=== PATIENT | female | born 1945 | race African-American/Black ===

== ENCOUNTER 2022-04-20 09:12 | Inpatient (IN) | payer OTHER ==
[2022-04-20] MEDS ORDERED: NITROGLYCERIN 25MG/D5W 250ML 25 MG/250 ML ML IVPB ONE (09:31)
[2022-04-20] MEDS ORDERED: RAPID SEQUENCE INTUBATION KIT NR ONE ×2 (09:34→09:36)
[2022-04-20 09:54] LABS: BASO % 1.3 % (0-2.0); EOS % 0.4 % (0-4.5); HEMATOCRIT 38.9 % (32.4-45.2); HEMOGLOBIN 11.6 GM/dL (10.7-15.3); LYMPH % 16.6 % (8-40); MCH 26.4 pg (25.7-33.7); MCHC 29.8 g/dl (32.0-36.0); MEAN CELL VOLUME 88.4 fl (80-96); MEAN PLT VOLUME 10.4 fl (7.5-11.1); MONO % 3.7 % (3.8-10.2); PLATELET COUNT 222 10^3/uL (134-434); RDW 18.1 % (11.6-15.6); WHITE BLOOD COUNT 7.2 K/mm3 (4.0-10.0)
[2022-04-20 10:08] LABS: PROTHROMBIN TIME (PATIENT) 11.5 SEC (9.7-13.0)
[2022-04-20 10:11] LABS: ACTIVATED PTT 32.7 SECONDS (25.2-36.5)
[2022-04-20 10:19] LABS: BLOOD UREA NITROGEN 17.5 mg/dL (7-18); CALCIUM 8.8 mg/dL (8.5-10.1)
[2022-04-20 10:20] LABS: MAGNESIUM 2.2 mg/dL (1.8-2.4)
[2022-04-20 10:22] LABS: PHOSPHOROUS 4.2 mg/dL (2.5-4.9)
[2022-04-20 10:24] LABS: BILIRUBIN,TOTAL 0.8 mg/dL (0.2-1); TOT PROT 7.8 g/dl (6.4-8.2)
[2022-04-20] MEDS ORDERED: FUROSEMIDE 40 MG/4 ML INJECTABLE VIAL IVPUSH ONE (10:58)
[2022-04-20] MEDS ORDERED: PIPERACILLIN/TAZOB 4.5 GM 4.5 GM in DEXTROSE 5%-WATER 100 ML IVPB ONE (11:07)
[2022-04-20] MEDS ORDERED: VANCOMYCIN 1 GM in D5W (PRE-DOCKED) 1,000 MG/250 ML IVPB ONE (11:07)
[2022-04-20] MEDS ORDERED: PROPOFOL 1,000,000 MCG/100 ML VIAL ONE (11:08)
[2022-04-20] MEDS ORDERED: FUROSEMIDE 40 MG/4 ML INJECTABLE VIAL ONE (11:08)
[2022-04-20 11:11] LABS: N-TERMINAL BNP 3273.6 pg/ml (5-450)
[2022-04-20] MEDS: PROPOFOL 1,000,000 MCG/100 ML VIAL IVPB SCH ×3 (11:21→21:47)
[2022-04-20] MEDS ORDERED: VANCOMYCIN/WATER FOR INJ (PEG) 1,000 MG/200 ML BAG IVPB ONE (11:27)
[2022-04-20 12:19] LABS: ARTERIAL BLD GAS O2 SATURATION 91.5 % (95-98); ARTERIAL BLOOD GAS BASE EXCESS 8.6 mmol/L (-2-2); ARTERIAL BLOOD GAS PO2 66.9 mmHg (80-100); ARTERIAL BLOOD GAS pH 7.344 (7.350-7.450)
[2022-04-20 17:23] LABS: ARTERIAL BLD GAS O2 SATURATION 96.6 % (95-98); ARTERIAL BLOOD GAS BASE EXCESS 8.5 mmol/L (-2-2); ARTERIAL BLOOD GAS PO2 94.7 mmHg (80-100); ARTERIAL BLOOD GAS pH 7.343 (7.350-7.450)
[2022-04-20 17:27] LABS: ALLENS TEST POSITIVE
[2022-04-20 17:28] LABS: VENT MODE A/C; VENT RATE 14
[2022-04-20] MEDS: DEXTROSE 5%-LACTATED RINGERS 1,000 ML IV SCH (17:39)
[2022-04-20] MEDS: CHLORHEXIDINE GLUCONATE 4% CLEANSER FOR DECOLONIZATION TP SCH (21:47)
[2022-04-20] MEDS: MUPIROCIN 2% TOPICAL OINTMENT FOR DECOLONIZATION NS SCH (21:47)
[2022-04-20 22:54] LABS: ARTERIAL BLD GAS O2 SATURATION 94.7 % (95-98); ARTERIAL BLOOD GAS BASE EXCESS 4.8 mmol/L (-2-2); ARTERIAL BLOOD GAS PO2 76.8 mmHg (80-100); ARTERIAL BLOOD GAS pH 7.365 (7.350-7.450)
[2022-04-20 22:59] LABS: VENT RATE 14
[2022-04-21] MEDS: PROPOFOL 1,000,000 MCG/100 ML VIAL IVPB SCH ×5 (01:00→21:40)
[2022-04-21] MEDS: DEXTROSE 5%-LACTATED RINGERS 1,000 ML IV SCH (03:02)
[2022-04-21] MEDS: FUROSEMIDE 40 MG/4 ML INJECTABLE VIAL IVPUSH SCH ×2 (05:43→14:19)
[2022-04-21 06:35] LABS: ARTERIAL BLD GAS O2 SATURATION 97.5 % (95-98); ARTERIAL BLOOD GAS BASE EXCESS 8.6 mmol/L (-2-2); ARTERIAL BLOOD GAS PO2 107.6 mmHg (80-100); ARTERIAL BLOOD GAS pH 7.352 (7.350-7.450)
[2022-04-21 06:50] LABS: VENT MODE V-A/C; VENT RATE 14
[2022-04-21 08:14] LABS: EPI CELLS 1 /uL (0-25.1); HYALINE CASTS 1 /uL (0-3.1); URINE APPEARANCE CLOUDY; URINE BACTERIA 14 /uL (0-1359); URINE BILIRUBIN NEGATIVE (NEGATIVE); URINE COLOR YELLOW; URINE GLUCOSE (UA) NEGATIVE (NEGATIVE); URINE KETONE NEGATIVE (NEGATIVE); URINE LEUK ESTERASE 1+ (NEGATIVE); URINE NITRITE NEGATIVE (NEGATIVE); URINE PROTEIN TRACE (NEGATIVE); URINE RBC 944 /uL (0-23.9); URINE UROBILINOGEN 0.2 mg/dL (0.2-1.0); URINE WBC 17 /uL (0-25.8)
[2022-04-21] MEDS ORDERED: ENOXAPARIN NA (PORCINE) 40 MG/0.4 ML DISP.SYRIN SQ SCH (10:00)
[2022-04-21] MEDS: MUPIROCIN 2% TOPICAL OINTMENT FOR DECOLONIZATION NS SCH ×2 (10:21→21:19)
[2022-04-21] MEDS: ENOXAPARIN NA (PORCINE) 40 MG/0.4 ML DISP.SYRIN SQ SCH (10:21)
[2022-04-21] MEDS: PANTOPRAZOLE SODIUM 40 MG VIAL IVPUSH SCH (10:22)
[2022-04-21 13:41] LABS: BASO % 0.4 % (0-2.0); EOS % 0.8 % (0-4.5); HEMATOCRIT 32.9 % (32.4-45.2); HEMOGLOBIN 10.3 GM/dL (10.7-15.3); LYMPH % 9.4 % (8-40); MCH 26.8 pg (25.7-33.7); MCHC 31.2 g/dl (32.0-36.0); MEAN PLT VOLUME 9.8 fl (7.5-11.1); MONO % 6.8 % (3.8-10.2); NEUT % 82.6 % (42.8-82.8); PLATELET COUNT 165 10^3/uL (134-434); RBC 3.83 M/mm3 (3.60-5.2); RDW 18.2 % (11.6-15.6); WHITE BLOOD COUNT 7.7 K/mm3 (4.0-10.0)
[2022-04-21 14:11] LABS: CALCIUM 8.4 mg/dL (8.5-10.1); MAGNESIUM 1.9 mg/dL (1.8-2.4)
[2022-04-21 14:15] LABS: PHOSPHOROUS 3.3 mg/dL (2.5-4.9)
[2022-04-21 14:18] LABS: ALBUMIN 2.2 g/dl (3.4-5.0); BILIRUBIN,TOTAL 0.6 mg/dL (0.2-1); CREATININE 1.2 mg/dL (0.55-1.3)
[2022-04-21] MEDS ORDERED: DEXTROSE 5%-LACTATED RINGERS 1,000 ML IV SCH (15:25)
[2022-04-21] MEDS: CHLORHEXIDINE GLUCONATE 4% CLEANSER FOR DECOLONIZATION TP SCH (21:19)
[2022-04-22] MEDS: FUROSEMIDE 40 MG/4 ML INJECTABLE VIAL IVPUSH SCH ×2 (05:40→15:12)
[2022-04-22 06:33] LABS: ARTERIAL BLD GAS O2 SATURATION 60.6 % (95-98); ARTERIAL BLOOD GAS BASE EXCESS 10.7 mmol/L (-2-2); ARTERIAL BLOOD GAS pH 7.406 (7.350-7.450)
[2022-04-22 07:13] LABS: ALLENS TEST POSITIVE; VENT MODE A/C; VENT RATE 16
[2022-04-22 07:14] LABS: ARTERIAL BLOOD GAS PO2 32.4 mmHg (80-100)
[2022-04-22 08:27] LABS: BASO % 0.6 % (0-2.0); EOS % 0.7 % (0-4.5); HEMATOCRIT 33.7 % (32.4-45.2); HEMOGLOBIN 10.5 GM/dL (10.7-15.3); LYMPH % 10.8 % (8-40); MCH 26.4 pg (25.7-33.7); MEAN CELL VOLUME 85.2 fl (80-96); MEAN PLT VOLUME 11.5 fl (7.5-11.1); MONO % 6.6 % (3.8-10.2); NEUT % 81.3 % (42.8-82.8); PLATELET COUNT 165 10^3/uL (134-434); RBC 3.96 M/mm3 (3.60-5.2); RDW 18.3 % (11.6-15.6); WHITE BLOOD COUNT 7.9 K/mm3 (4.0-10.0)
[2022-04-22 08:28] LABS: ARTERIAL BLD GAS O2 SATURATION 96.2 % (95-98); ARTERIAL BLOOD GAS BASE EXCESS 9.7 mmol/L (-2-2); ARTERIAL BLOOD GAS PO2 82.8 mmHg (80-100); ARTERIAL BLOOD GAS pH 7.429 (7.350-7.450)
[2022-04-22 08:30] LABS: ALLENS TEST POSITIVE
[2022-04-22 08:31] LABS: VENT MODE A/C; VENT RATE 16
[2022-04-22 08:47] LABS: CALCIUM 8.6 mg/dL (8.5-10.1); MAGNESIUM 1.8 mg/dL (1.8-2.4)
[2022-04-22 08:49] LABS: CREATININE 1.3 mg/dL (0.55-1.3); PHOSPHOROUS 3.4 mg/dL (2.5-4.9)
[2022-04-22 08:51] LABS: BILIRUBIN,TOTAL 0.5 mg/dL (0.2-1); TOT PROT 6.2 g/dl (6.4-8.2)
[2022-04-22] MEDS: KCL 10 MEQ IVPB 10 MEQ/100 ML INFUS.BAG IVPB SCH ×2 (09:00→12:50)
[2022-04-22] MEDS: ENOXAPARIN NA (PORCINE) 40 MG/0.4 ML DISP.SYRIN SQ SCH (09:13)
[2022-04-22] MEDS: PANTOPRAZOLE SODIUM 40 MG VIAL IVPUSH SCH (09:13)
[2022-04-22] MEDS: MUPIROCIN 2% TOPICAL OINTMENT FOR DECOLONIZATION NS SCH ×2 (09:13→21:35)
[2022-04-22] MEDS: PROPOFOL 1,000,000 MCG/100 ML VIAL IVPB SCH ×4 (09:13→21:35)
[2022-04-22] MEDS ORDERED: POTASSIUM CHLORIDE ORAL LIQUID 20 MEQ/15 ML PO ONE (09:15)
[2022-04-22] MEDS ORDERED: MAGNESIUM 1GM/D5W - 1 GM/100 ML IVPB IVPB ONE (09:15)
[2022-04-22] MEDS ORDERED: DEXTROSE 50%-WATER 25 GM/50 ML DISP.SYRIN ONE (09:19)
[2022-04-22] MEDS: METOPROLOL TARTRATE 25 MG TABLET (FP) NGT SCH ×2 (11:31→21:35)
[2022-04-22] MEDS ORDERED: DEXTROSE 50%-WATER - 25 GM/50 ML VIAL IVPUSH PRN (12:38)
[2022-04-22 18:46] LABS: BLOOD UREA NITROGEN 24.1 mg/dL (7-18); CALCIUM 7.9 mg/dL (8.5-10.1)
[2022-04-22 18:50] LABS: CREATININE 1.6 mg/dL (0.55-1.3)
[2022-04-22] MEDS: CHLORHEXIDINE GLUCONATE 4% CLEANSER FOR DECOLONIZATION TP SCH (21:35)
[2022-04-23] MEDS: PROPOFOL 1,000,000 MCG/100 ML VIAL IVPB SCH ×4 (00:53→23:00)
[2022-04-23] MEDS: FUROSEMIDE 40 MG/4 ML INJECTABLE VIAL IVPUSH SCH (06:05)
[2022-04-23 06:39] LABS: ARTERIAL BLOOD GAS BASE EXCESS 8.5 mmol/L (-2-2); ARTERIAL BLOOD GAS PO2 74.5 mmHg (80-100); ARTERIAL BLOOD GAS pH 7.361 (7.350-7.450)
[2022-04-23 06:57] LABS: ALLENS TEST POSITIVE
[2022-04-23 06:58] LABS: VENT MODE A/C; VENT RATE 12
[2022-04-23 08:11] LABS: BASO % 0.3 % (0-2.0); EOS % 0.8 % (0-4.5); HEMATOCRIT 31.2 % (32.4-45.2); HEMOGLOBIN 9.9 GM/dL (10.7-15.3); LYMPH % 10.7 % (8-40); MCH 26.7 pg (25.7-33.7); MCHC 31.6 g/dl (32.0-36.0); MEAN CELL VOLUME 84.7 fl (80-96); MEAN PLT VOLUME 10.2 fl (7.5-11.1); MONO % 5.8 % (3.8-10.2); NEUT % 82.4 % (42.8-82.8); PLATELET COUNT 154 10^3/uL (134-434); RBC 3.69 M/mm3 (3.60-5.2); RDW 18.5 % (11.6-15.6); WHITE BLOOD COUNT 8.9 K/mm3 (4.0-10.0)
[2022-04-23 08:30] LABS: ALBUMIN 1.8 g/dl (3.4-5.0); BLOOD UREA NITROGEN 28.5 mg/dL (7-18); CALCIUM 7.6 mg/dL (8.5-10.1); CREATININE 1.8 mg/dL (0.55-1.3); PHOSPHOROUS 4.7 mg/dL (2.5-4.9)
[2022-04-23 08:31] LABS: TOT PROT 5.4 g/dl (6.4-8.2)
[2022-04-23 08:36] LABS: BILIRUBIN,TOTAL 0.7 mg/dL (0.2-1)
[2022-04-23] MEDS: MUPIROCIN 2% TOPICAL OINTMENT FOR DECOLONIZATION NS SCH ×2 (10:18→21:04)
[2022-04-23] MEDS: AMINO ACIDS/PROTEIN HYDROLYS 30 ML LIQUID.PKT PO SCH (10:18)
[2022-04-23] MEDS: ENOXAPARIN NA (PORCINE) 40 MG/0.4 ML DISP.SYRIN SQ SCH (10:19)
[2022-04-23] MEDS: METOPROLOL TARTRATE 25 MG TABLET (FP) NGT SCH ×2 (10:19→21:04)
[2022-04-23] MEDS: PANTOPRAZOLE SODIUM 40 MG VIAL IVPUSH SCH (10:19)
[2022-04-23] MEDS ORDERED: POTASSIUM CHLORIDE ORAL LIQUID 20 MEQ/15 ML PO ONE (12:30)
[2022-04-23] MEDS: CHLORHEXIDINE GLUCONATE 4% CLEANSER FOR DECOLONIZATION TP SCH (21:04)
[2022-04-24] MEDS: PROPOFOL 1,000,000 MCG/100 ML VIAL IVPB SCH ×3 (05:29→18:04)
[2022-04-24 08:12] LABS: BASO % 0.3 % (0-2.0); EOS % 2.1 % (0-4.5); HEMATOCRIT 31.4 % (32.4-45.2); HEMOGLOBIN 9.8 GM/dL (10.7-15.3); LYMPH % 13.3 % (8-40); MCH 26.5 pg (25.7-33.7); MCHC 31.1 g/dl (32.0-36.0); MEAN CELL VOLUME 85.4 fl (80-96); MEAN PLT VOLUME 10.9 fl (7.5-11.1); MONO % 8.1 % (3.8-10.2); NEUT % 76.2 % (42.8-82.8); PLATELET COUNT 158 10^3/uL (134-434); RBC 3.68 M/mm3 (3.60-5.2); RDW 18.5 % (11.6-15.6); WHITE BLOOD COUNT 7.1 K/mm3 (4.0-10.0)
[2022-04-24 08:37] LABS: CALCIUM 7.4 mg/dL (8.5-10.1)
[2022-04-24 08:39] LABS: ALBUMIN 1.8 g/dl (3.4-5.0); MAGNESIUM 2.1 mg/dL (1.8-2.4)
[2022-04-24 08:41] LABS: CREATININE 1.7 mg/dL (0.55-1.3); PHOSPHOROUS 5.6 mg/dL (2.5-4.9)
[2022-04-24 08:43] LABS: BILIRUBIN,TOTAL 0.4 mg/dL (0.2-1); TOT PROT 5.6 g/dl (6.4-8.2)
[2022-04-24] MEDS: MUPIROCIN 2% TOPICAL OINTMENT FOR DECOLONIZATION NS SCH ×2 (09:05→21:37)
[2022-04-24] MEDS: AMINO ACIDS/PROTEIN HYDROLYS 30 ML LIQUID.PKT PO SCH (09:05)
[2022-04-24] MEDS: ENOXAPARIN NA (PORCINE) 40 MG/0.4 ML DISP.SYRIN SQ SCH (09:06)
[2022-04-24] MEDS: PANTOPRAZOLE SODIUM 40 MG VIAL IVPUSH SCH (09:06)
[2022-04-24] MEDS: METOPROLOL TARTRATE 25 MG TABLET (FP) NGT SCH ×2 (09:06→21:38)
[2022-04-24] MEDS: FUROSEMIDE 40 MG/4 ML INJECTABLE VIAL IVPUSH SCH (13:50)
[2022-04-24] MEDS: CHLORHEXIDINE GLUCONATE 4% CLEANSER FOR DECOLONIZATION TP SCH (21:37)
[2022-04-25] MEDS: PROPOFOL 1,000,000 MCG/100 ML VIAL IVPB SCH ×3 (04:00→16:04)
[2022-04-25 06:24] LABS: ARTERIAL BLD GAS O2 SATURATION 95.8 % (95-98); ARTERIAL BLOOD GAS BASE EXCESS 8.1 mmol/L (-2-2); ARTERIAL BLOOD GAS PO2 87.3 mmHg (80-100)
[2022-04-25 06:30] LABS: VENT MODE V-A/C
[2022-04-25 06:31] LABS: VENT RATE 12
[2022-04-25 08:03] LABS: BASO % 0.5 % (0-2.0); HEMATOCRIT 31.6 % (32.4-45.2); HEMOGLOBIN 9.9 GM/dL (10.7-15.3); LYMPH % 10.6 % (8-40); MCH 26.5 pg (25.7-33.7); MCHC 31.2 g/dl (32.0-36.0); MEAN PLT VOLUME 10.7 fl (7.5-11.1); NEUT % 79.9 % (42.8-82.8); PLATELET COUNT 164 10^3/uL (134-434); RBC 3.71 M/mm3 (3.60-5.2); WHITE BLOOD COUNT 6.9 K/mm3 (4.0-10.0)
[2022-04-25 08:26] LABS: ALBUMIN 1.8 g/dl (3.4-5.0); MAGNESIUM 2.3 mg/dL (1.8-2.4)
[2022-04-25 08:27] LABS: CALCIUM 7.9 mg/dL (8.5-10.1)
[2022-04-25 08:29] LABS: CREATININE 1.2 mg/dL (0.55-1.3)
[2022-04-25 08:30] LABS: BILIRUBIN,TOTAL 0.3 mg/dL (0.2-1); TOT PROT 5.8 g/dl (6.4-8.2)
[2022-04-25] MEDS: PANTOPRAZOLE SODIUM 40 MG VIAL IVPUSH SCH (09:02)
[2022-04-25] MEDS: MUPIROCIN 2% TOPICAL OINTMENT FOR DECOLONIZATION NS SCH (09:03)
[2022-04-25] MEDS: METOPROLOL TARTRATE 25 MG TABLET (FP) NGT SCH ×3 (09:03→21:40)
[2022-04-25] MEDS: AMINO ACIDS/PROTEIN HYDROLYS 30 ML LIQUID.PKT PO SCH ×2 (09:03→16:48)
[2022-04-25] MEDS: ENOXAPARIN NA (PORCINE) 40 MG/0.4 ML DISP.SYRIN SQ SCH (09:03)
[2022-04-25] MEDS: DEXTROSE 5%-WATER - 1,000 ML IV SCH (13:55)
[2022-04-25] MEDS ORDERED: FUROSEMIDE 40 MG/4 ML INJECTABLE VIAL IVPUSH ONE (14:07)
[2022-04-25 15:13] VITALS: BMI 43.4
[2022-04-25] MEDS: POLYETHYLENE GLYCOL (HEALTHYLAX) 3350 17 GM PACKET PO SCH (21:39)
[2022-04-25] MEDS: CHLORHEXIDINE GLUCONATE 4% CLEANSER FOR DECOLONIZATION TP SCH (21:39)
[2022-04-26 06:52] LABS: ARTERIAL BLD GAS O2 SATURATION 95.2 % (95-98); ARTERIAL BLOOD GAS PO2 78.6 mmHg (80-100); ARTERIAL BLOOD GAS pH 7.398 (7.350-7.450)
[2022-04-26 06:53] LABS: ALLENS TEST POSITIVE; VENT MODE A/C
[2022-04-26 06:54] LABS: VENT RATE 12
[2022-04-26 08:08] LABS: BASO % 0.3 % (0-2.0); EOS % 2.6 % (0-4.5); HEMATOCRIT 30.7 % (32.4-45.2); HEMOGLOBIN 9.5 GM/dL (10.7-15.3); LYMPH % 11.7 % (8-40); MCH 26.1 pg (25.7-33.7); MEAN CELL VOLUME 84.2 fl (80-96); MONO % 6.8 % (3.8-10.2); NEUT % 78.6 % (42.8-82.8); PLATELET COUNT 165 10^3/uL (134-434); RBC 3.65 M/mm3 (3.60-5.2); RDW 17.5 % (11.6-15.6); WHITE BLOOD COUNT 5.8 K/mm3 (4.0-10.0)
[2022-04-26 08:37] LABS: BLOOD UREA NITROGEN 31.4 mg/dL (7-18)
[2022-04-26 08:38] LABS: CALCIUM 8.1 mg/dL (8.5-10.1); PHOSPHOROUS 4.2 mg/dL (2.5-4.9)
[2022-04-26 08:39] LABS: ALBUMIN 1.7 g/dl (3.4-5.0); BILIRUBIN,TOTAL 0.2 mg/dL (0.2-1); MAGNESIUM 2.3 mg/dL (1.8-2.4)
[2022-04-26 08:40] LABS: TOT PROT 5.8 g/dl (6.4-8.2)
[2022-04-26] MEDS: PANTOPRAZOLE SODIUM 40 MG VIAL IVPUSH SCH (09:11)
[2022-04-26] MEDS: FUROSEMIDE 40 MG/4 ML INJECTABLE VIAL IVPUSH SCH (09:11)
[2022-04-26] MEDS: ENOXAPARIN NA (PORCINE) 40 MG/0.4 ML DISP.SYRIN SQ SCH (09:11)
[2022-04-26] MEDS: AMINO ACIDS/PROTEIN HYDROLYS 30 ML LIQUID.PKT PO SCH ×2 (09:12→17:31)
[2022-04-26] MEDS: METOPROLOL TARTRATE 25 MG TABLET (FP) NGT SCH ×2 (09:12→21:23)
[2022-04-26] MEDS: POLYETHYLENE GLYCOL (HEALTHYLAX) 3350 17 GM PACKET PO SCH ×2 (09:12→21:23)
[2022-04-27 06:26] LABS: ARTERIAL BLD GAS O2 SATURATION 91.5 % (95-98); ARTERIAL BLOOD GAS BASE EXCESS 10.8 mmol/L (-2-2); ARTERIAL BLOOD GAS PO2 63.6 mmHg (80-100); ARTERIAL BLOOD GAS pH 7.394 (7.350-7.450)
[2022-04-27 06:27] LABS: ALLENS TEST POSITIVE; VENT MODE A/C; VENT RATE 12
[2022-04-27 07:36] LABS: BASO % 0.4 % (0-2.0); EOS % 2.3 % (0-4.5); HEMATOCRIT 28.9 % (32.4-45.2); HEMOGLOBIN 9.3 GM/dL (10.7-15.3); LYMPH % 21.6 % (8-40); MCH 26.9 pg (25.7-33.7); MCHC 32.1 g/dl (32.0-36.0); MEAN CELL VOLUME 83.7 fl (80-96); MEAN PLT VOLUME 10.4 fl (7.5-11.1); MONO % 9.7 % (3.8-10.2); PLATELET COUNT 184 10^3/uL (134-434); RBC 3.46 M/mm3 (3.60-5.2); RDW 17.8 % (11.6-15.6); WHITE BLOOD COUNT 6.2 K/mm3 (4.0-10.0)
[2022-04-27 07:40] LABS: CALCIUM 8.3 mg/dL (8.5-10.1)
[2022-04-27 07:41] LABS: ALBUMIN 1.7 g/dl (3.4-5.0); BLOOD UREA NITROGEN 33.4 mg/dL (7-18); MAGNESIUM 2.1 mg/dL (1.8-2.4)
[2022-04-27 07:44] LABS: BILIRUBIN,TOTAL 0.4 mg/dL (0.2-1); CREATININE 1.1 mg/dL (0.55-1.3); PHOSPHOROUS 4.2 mg/dL (2.5-4.9); TOT PROT 5.9 g/dl (6.4-8.2)
[2022-04-27] MEDS: AMINO ACIDS/PROTEIN HYDROLYS 30 ML LIQUID.PKT PO SCH ×2 (08:26→17:09)
[2022-04-27] MEDS: METOPROLOL TARTRATE 25 MG TABLET (FP) NGT SCH ×2 (10:59→21:09)
[2022-04-27] MEDS: ENOXAPARIN NA (PORCINE) 40 MG/0.4 ML DISP.SYRIN SQ SCH (10:59)
[2022-04-27] MEDS: FUROSEMIDE 40 MG/4 ML INJECTABLE VIAL IVPUSH SCH (10:59)
[2022-04-27] MEDS: POLYETHYLENE GLYCOL (HEALTHYLAX) 3350 17 GM PACKET PO SCH ×2 (10:59→21:09)
[2022-04-27] MEDS: DEXTROSE 5%-WATER - 1,000 ML IV SCH (10:59)
[2022-04-27] MEDS: PANTOPRAZOLE SODIUM 40 MG VIAL IVPUSH SCH (11:00)
[2022-04-27] MEDS: PROPOFOL 1,000,000 MCG/100 ML VIAL IVPB SCH ×2 (17:07→21:06)
[2022-04-27] MEDS: CHLORHEXIDINE GLUCONATE 4% CLEANSER FOR DECOLONIZATION TP SCH (21:06)
[2022-04-28] MEDS: PROPOFOL 1,000,000 MCG/100 ML VIAL IVPB SCH ×4 (00:37→22:19)
[2022-04-28 07:21] LABS: HEMOGLOBIN 9.1 GM/dL (10.7-15.3); MCH 26.3 pg (25.7-33.7); MCHC 31.4 g/dl (32.0-36.0); MEAN CELL VOLUME 83.9 fl (80-96); MEAN PLT VOLUME 10.6 fl (7.5-11.1); PLATELET COUNT 204 10^3/uL (134-434); RBC 3.46 M/mm3 (3.60-5.2); WHITE BLOOD COUNT 6.5 K/mm3 (4.0-10.0)
[2022-04-28 07:52] LABS: ALBUMIN 1.7 g/dl (3.4-5.0); BLOOD UREA NITROGEN 33.6 mg/dL (7-18); CALCIUM 8.4 mg/dL (8.5-10.1); MAGNESIUM 2.4 mg/dL (1.8-2.4)
[2022-04-28 07:54] LABS: PHOSPHOROUS 4.4 mg/dL (2.5-4.9)
[2022-04-28 07:55] LABS: CREATININE 1.2 mg/dL (0.55-1.3)
[2022-04-28] MEDS: AMINO ACIDS/PROTEIN HYDROLYS 30 ML LIQUID.PKT PO SCH ×2 (07:55→16:46)
[2022-04-28 07:56] LABS: BILIRUBIN,TOTAL 0.5 mg/dL (0.2-1); TOT PROT 5.8 g/dl (6.4-8.2)
[2022-04-28] MEDS: POLYETHYLENE GLYCOL (HEALTHYLAX) 3350 17 GM PACKET PO SCH ×2 (11:22→22:19)
[2022-04-28] MEDS: METOPROLOL TARTRATE 25 MG TABLET (FP) NGT SCH ×2 (11:22→22:19)
[2022-04-28] MEDS: PANTOPRAZOLE SODIUM 40 MG VIAL IVPUSH SCH (11:22)
[2022-04-28] MEDS: ENOXAPARIN NA (PORCINE) 40 MG/0.4 ML DISP.SYRIN SQ SCH (11:22)
[2022-04-28] MEDS: FUROSEMIDE 40 MG/4 ML INJECTABLE VIAL IVPUSH SCH ×2 (11:23→22:19)
[2022-04-28] MEDS ORDERED: ACETAMINOPHEN 1000 MG/100 ML BAG IVPB ONE (15:00)
[2022-04-28] MEDS: CHLORHEXIDINE GLUCONATE 4% CLEANSER FOR DECOLONIZATION TP SCH (22:17)
[2022-04-29] MEDS: PROPOFOL 1,000,000 MCG/100 ML VIAL IVPB SCH ×4 (04:50→13:31)
[2022-04-29 06:39] LABS: HEMATOCRIT 28.8 % (32.4-45.2); HEMOGLOBIN 9.1 GM/dL (10.7-15.3); MCH 26.4 pg (25.7-33.7); MCHC 31.4 g/dl (32.0-36.0); MEAN CELL VOLUME 84.1 fl (80-96); MEAN PLT VOLUME 9.9 fl (7.5-11.1); PLATELET COUNT 228 10^3/uL (134-434); RBC 3.43 M/mm3 (3.60-5.2); WHITE BLOOD COUNT 7.2 K/mm3 (4.0-10.0)
[2022-04-29 06:59] LABS: ALBUMIN 1.6 g/dl (3.4-5.0); BLOOD UREA NITROGEN 36.7 mg/dL (7-18); CALCIUM 8.4 mg/dL (8.5-10.1); MAGNESIUM 2.4 mg/dL (1.8-2.4)
[2022-04-29 07:02] LABS: CREATININE 1.2 mg/dL (0.55-1.3); PHOSPHOROUS 4.4 mg/dL (2.5-4.9)
[2022-04-29 07:04] LABS: BILIRUBIN,TOTAL 0.5 mg/dL (0.2-1); TOT PROT 5.7 g/dl (6.4-8.2)
[2022-04-29] MEDS: AMINO ACIDS/PROTEIN HYDROLYS 30 ML LIQUID.PKT PO SCH ×2 (08:55→17:13)
[2022-04-29] MEDS: ENOXAPARIN NA (PORCINE) 40 MG/0.4 ML DISP.SYRIN SQ SCH (09:05)
[2022-04-29] MEDS: PANTOPRAZOLE SODIUM 40 MG VIAL IVPUSH SCH (09:05)
[2022-04-29] MEDS: FUROSEMIDE 40 MG/4 ML INJECTABLE VIAL IVPUSH SCH ×2 (09:05→21:35)
[2022-04-29] MEDS: POLYETHYLENE GLYCOL (HEALTHYLAX) 3350 17 GM PACKET PO SCH ×2 (09:05→21:35)
[2022-04-29] MEDS: METOPROLOL TARTRATE 25 MG TABLET (FP) NGT SCH ×2 (09:05→21:35)
[2022-04-29 15:59] LABS: ARTERIAL BLD GAS O2 SATURATION 94.2 % (95-98); ARTERIAL BLOOD GAS BASE EXCESS 0.3 mmol/L (-2-2); ARTERIAL BLOOD GAS PO2 68.1 mmHg (80-100); ARTERIAL BLOOD GAS pH 7.432 (7.350-7.450)
[2022-04-29 16:04] LABS: ALLENS TEST POSITIVE
[2022-04-29 16:05] LABS: VENT MODE A/C; VENT RATE 12
[2022-04-29 16:21] LABS: BASO % 0.4 % (0-2.0); EOS % 1.6 % (0-4.5); HEMATOCRIT 29.2 % (32.4-45.2); LYMPH % 17.1 % (8-40); MCH 25.8 pg (25.7-33.7); MCHC 30.8 g/dl (32.0-36.0); MEAN CELL VOLUME 83.7 fl (80-96); MEAN PLT VOLUME 9.9 fl (7.5-11.1); MONO % 10.1 % (3.8-10.2); NEUT % 70.8 % (42.8-82.8); PLATELET COUNT 267 10^3/uL (134-434); RBC 3.49 M/mm3 (3.60-5.2); RDW 17.2 % (11.6-15.6); WHITE BLOOD COUNT 9.2 K/mm3 (4.0-10.0)
[2022-04-29 16:27] LABS: INR 1.14 (0.83-1.09); PROTHROMBIN TIME (PATIENT) 13.1 SEC (9.7-13.0)
[2022-04-29 16:30] LABS: ACTIVATED PTT 31.3 SECONDS (25.2-36.5)
[2022-04-29] MEDS: CHLORHEXIDINE GLUCONATE 4% CLEANSER FOR DECOLONIZATION TP SCH (21:35)
[2022-04-30] MEDS ORDERED: ACETAMINOPHEN 650 MG/20.3 ML ORAL SOLUTION (CUPS) PO PRN (06:50)
[2022-04-30] MEDS: AMINO ACIDS/PROTEIN HYDROLYS 30 ML LIQUID.PKT PO SCH ×2 (07:40→16:38)
[2022-04-30 07:50] LABS: HEMATOCRIT 27.5 % (32.4-45.2); HEMOGLOBIN 8.9 GM/dL (10.7-15.3); MCH 26.9 pg (25.7-33.7); MCHC 32.2 g/dl (32.0-36.0); MEAN CELL VOLUME 83.5 fl (80-96); MEAN PLT VOLUME 9.4 fl (7.5-11.1); PLATELET COUNT 253 10^3/uL (134-434); RDW 17.3 % (11.6-15.6); WHITE BLOOD COUNT 9.6 K/mm3 (4.0-10.0)
[2022-04-30 08:16] LABS: ALBUMIN 1.8 g/dl (3.4-5.0); BLOOD UREA NITROGEN 46.1 mg/dL (7-18); CALCIUM 8.6 mg/dL (8.5-10.1)
[2022-04-30 08:17] LABS: CREATININE 1.2 mg/dL (0.55-1.3)
[2022-04-30 08:19] LABS: BILIRUBIN,TOTAL 0.5 mg/dL (0.2-1); TOT PROT 6.1 g/dl (6.4-8.2)
[2022-04-30] MEDS: POLYETHYLENE GLYCOL (HEALTHYLAX) 3350 17 GM PACKET PO SCH ×2 (09:11→21:28)
[2022-04-30] MEDS: METOPROLOL TARTRATE 25 MG TABLET (FP) NGT SCH ×2 (09:11→21:28)
[2022-04-30] MEDS: ENOXAPARIN NA (PORCINE) 40 MG/0.4 ML DISP.SYRIN SQ SCH (09:11)
[2022-04-30] MEDS: FUROSEMIDE 40 MG/4 ML INJECTABLE VIAL IVPUSH SCH ×2 (09:11→21:28)
[2022-04-30] MEDS: PANTOPRAZOLE SODIUM 40 MG VIAL IVPUSH SCH (09:11)
[2022-04-30 09:14] LABS: MAGNESIUM 2.4 mg/dL (1.8-2.4)
[2022-04-30 09:18] LABS: PHOSPHOROUS 4.2 mg/dL (2.5-4.9)
[2022-04-30] MEDS ORDERED: ALBUTEROL SO4 0.083% IH SOL 2.5 MG/3 ML VIAL.NEB. NEB PRN (14:46)
[2022-04-30] MEDS ORDERED: FUROSEMIDE 40 MG/4 ML INJECTABLE VIAL IVPUSH ONE (15:22)
[2022-04-30] MEDS ORDERED: ALBUTEROL SO4 2.5/IPRATROPIUM 0.5 INH SOL 3 ML VIAL.NEB. NEB PRN (15:22)
[2022-04-30] MEDS: CHLORHEXIDINE GLUCONATE 4% CLEANSER FOR DECOLONIZATION TP SCH (21:27)
[2022-04-30] MEDS: DEXMEDETOMIDINE PREMIX 400 MCG/100 ML BAG IVPB SCH (21:28)
[2022-05-01] MEDS ORDERED: ACETAMINOPHEN 1000 MG/100 ML BAG IVPB ONE (02:45)
[2022-05-01] MEDS: AMINO ACIDS/PROTEIN HYDROLYS 30 ML LIQUID.PKT PO SCH ×2 (07:58→17:00)
[2022-05-01 07:59] LABS: BLOOD UREA NITROGEN 61.5 mg/dL (7-18); CALCIUM 8.6 mg/dL (8.5-10.1); MAGNESIUM 2.4 mg/dL (1.8-2.4)
[2022-05-01 08:00] LABS: ALBUMIN 1.8 g/dl (3.4-5.0)
[2022-05-01 08:03] LABS: CREATININE 1.3 mg/dL (0.55-1.3); PHOSPHOROUS 5.6 mg/dL (2.5-4.9)
[2022-05-01 08:04] LABS: BILIRUBIN,TOTAL 0.6 mg/dL (0.2-1); TOT PROT 6.5 g/dl (6.4-8.2)
[2022-05-01 08:07] LABS: HEMATOCRIT 32.1 % (32.4-45.2); HEMOGLOBIN 9.8 GM/dL (10.7-15.3); MCHC 30.7 g/dl (32.0-36.0); MEAN CELL VOLUME 84.8 fl (80-96); MEAN PLT VOLUME 9.8 fl (7.5-11.1); PLATELET COUNT 318 10^3/uL (134-434); RBC 3.78 M/mm3 (3.60-5.2); WHITE BLOOD COUNT 9.9 K/mm3 (4.0-10.0)
[2022-05-01] MEDS: PANTOPRAZOLE SODIUM 40 MG VIAL IVPUSH SCH (09:27)
[2022-05-01] MEDS: FUROSEMIDE 40 MG/4 ML INJECTABLE VIAL IVPUSH SCH ×2 (09:27→21:28)
[2022-05-01] MEDS: ENOXAPARIN NA (PORCINE) 40 MG/0.4 ML DISP.SYRIN SQ SCH (09:27)
[2022-05-01] MEDS: POLYETHYLENE GLYCOL (HEALTHYLAX) 3350 17 GM PACKET PO SCH ×2 (09:49→21:28)
[2022-05-01] MEDS: METOPROLOL TARTRATE 25 MG TABLET (FP) NGT SCH ×2 (09:49→21:28)
[2022-05-01] MEDS ORDERED: ACETAMINOPHEN 1000 MG/100 ML BAG IVPB STA (10:08)
[2022-05-01] MEDS: DEXMEDETOMIDINE PREMIX 400 MCG/100 ML BAG IVPB SCH (16:59)
[2022-05-01 20:59] LABS: ARTERIAL BLD GAS O2 SATURATION 91.6 % (95-98); ARTERIAL BLOOD GAS PO2 62.6 mmHg (80-100); ARTERIAL BLOOD GAS pH 7.415 (7.350-7.450)
[2022-05-01 21:02] LABS: ALLENS TEST POSITIVE
[2022-05-01 21:03] LABS: VENT MODE S/T; VENT RATE 15
[2022-05-01] MEDS ORDERED: FENTANYL CITRATE/PF 50 MCG/ML VIAL IVPUSH ONE (21:14)
[2022-05-01] MEDS ORDERED: METOPROLOL TARTRATE 5 MG/5 ML VIAL IVPUSH ONE (21:18)
[2022-05-01] MEDS: CHLORHEXIDINE GLUCONATE 4% CLEANSER FOR DECOLONIZATION TP SCH (21:28)
[2022-05-02] MEDS ORDERED: METOPROLOL TARTRATE 5 MG/5 ML VIAL IVPUSH ONE (05:11)
[2022-05-02] MEDS: AMINO ACIDS/PROTEIN HYDROLYS 30 ML LIQUID.PKT PO SCH ×2 (08:00→17:26)
[2022-05-02] MEDS: POLYETHYLENE GLYCOL (HEALTHYLAX) 3350 17 GM PACKET PO SCH ×2 (09:13→21:36)
[2022-05-02] MEDS: PANTOPRAZOLE SODIUM 40 MG VIAL IVPUSH SCH (09:15)
[2022-05-02] MEDS: ENOXAPARIN NA (PORCINE) 40 MG/0.4 ML DISP.SYRIN SQ SCH (09:16)
[2022-05-02] MEDS: METOPROLOL TARTRATE 25 MG TABLET (FP) NGT SCH (09:16)
[2022-05-02] MEDS: FUROSEMIDE 40 MG/4 ML INJECTABLE VIAL IVPUSH SCH ×2 (09:17→21:36)
[2022-05-02 09:27] LABS: ALBUMIN 1.8 g/dl (3.4-5.0); CALCIUM 9.1 mg/dL (8.5-10.1)
[2022-05-02 09:30] LABS: CREATININE 1.4 mg/dL (0.55-1.3)
[2022-05-02 09:32] LABS: BILIRUBIN,TOTAL 0.6 mg/dL (0.2-1); TOT PROT 6.6 g/dl (6.4-8.2)
[2022-05-02 09:54] LABS: ARTERIAL BLD GAS O2 SATURATION 95.5 % (95-98); ARTERIAL BLOOD GAS BASE EXCESS 12.1 mmol/L (-2-2); ARTERIAL BLOOD GAS PO2 75.2 mmHg (80-100); ARTERIAL BLOOD GAS pH 7.463 (7.350-7.450)
[2022-05-02 09:55] LABS: ALLENS TEST POSITIVE; VENT MODE V
[2022-05-02 09:56] LABS: VENT RATE 17
[2022-05-02] MEDS ORDERED: METOPROLOL TARTRATE 5 MG/5 ML VIAL IVPUSH PRN (10:03)
[2022-05-02] MEDS ORDERED: METOPROLOL TARTRATE 5 MG/5 ML VIAL ONE (10:07)
[2022-05-02] MEDS: METOPROLOL TARTRATE 5 MG/5 ML VIAL IVPUSH PRN (10:08)
[2022-05-02] MEDS: CHLORHEXIDINE GLUCONATE 4% CLEANSER FOR DECOLONIZATION TP SCH (21:36)
[2022-05-03] MEDS: METOPROLOL TARTRATE 5 MG/5 ML VIAL IVPUSH PRN (01:44)
[2022-05-03] MEDS: AMINO ACIDS/PROTEIN HYDROLYS 30 ML LIQUID.PKT PO SCH ×2 (07:31→18:22)
[2022-05-03 07:42] LABS: EOS % 0.4 % (0-4.5); HEMATOCRIT 31.9 % (32.4-45.2); MCH 26.5 pg (25.7-33.7); MCHC 31.2 g/dl (32.0-36.0); MEAN PLT VOLUME 9.6 fl (7.5-11.1); MONO % 6.9 % (3.8-10.2); NEUT % 82.7 % (42.8-82.8); PLATELET COUNT 424 10^3/uL (134-434); RBC 3.75 M/mm3 (3.60-5.2); WHITE BLOOD COUNT 10.2 K/mm3 (4.0-10.0)
[2022-05-03 08:07] LABS: CALCIUM 8.9 mg/dL (8.5-10.1)
[2022-05-03 08:08] LABS: ALBUMIN 1.8 g/dl (3.4-5.0); MAGNESIUM 2.4 mg/dL (1.8-2.4)
[2022-05-03 08:11] LABS: CREATININE 1.3 mg/dL (0.55-1.3); PHOSPHOROUS 4.9 mg/dL (2.5-4.9)
[2022-05-03 08:12] LABS: TOT PROT 6.4 g/dl (6.4-8.2)
[2022-05-03 08:13] LABS: BILIRUBIN,TOTAL 0.6 mg/dL (0.2-1)
[2022-05-03] MEDS ORDERED: AMINO ACIDS 4.25%/D5W 1,000 ML IV SCH ×2 (10:45→15:55)
[2022-05-03] MEDS: FUROSEMIDE 40 MG/4 ML INJECTABLE VIAL IVPUSH SCH ×2 (10:58→21:30)
[2022-05-03] MEDS: ENOXAPARIN NA (PORCINE) 40 MG/0.4 ML DISP.SYRIN SQ SCH (10:58)
[2022-05-03] MEDS: POLYETHYLENE GLYCOL (HEALTHYLAX) 3350 17 GM PACKET PO SCH ×2 (10:58→21:30)
[2022-05-03] MEDS: PANTOPRAZOLE SODIUM 40 MG VIAL IVPUSH SCH (10:58)
[2022-05-03] MEDS: MULTIVIT INJ. ADULT COMBO WITH VIT K 1 COMBO 10 ML VIAL IV SCH (11:00)
[2022-05-03] MEDS ORDERED: MULTIVIT INJ. ADULT COMBO WITH VIT K 1 COMBO 10 ML VIAL IV ONE (13:30)
[2022-05-03] MEDS: CHLORHEXIDINE GLUCONATE 4% CLEANSER FOR DECOLONIZATION TP SCH (21:30)
[2022-05-03 22:29] LABS: EPI CELLS 4 /uL (0-25.1); HYALINE CASTS 6 /uL (0-3.1); URINE APPEARANCE CLOUDY; URINE BACTERIA 548 /uL (0-1359); URINE BILIRUBIN NEGATIVE (NEGATIVE); URINE COLOR YELLOW; URINE GLUCOSE (UA) NEGATIVE (NEGATIVE); URINE KETONE NEGATIVE (NEGATIVE); URINE LEUK ESTERASE 2+ (NEGATIVE); URINE NITRITE NEGATIVE (NEGATIVE); URINE PROTEIN 1+ (NEGATIVE); URINE RBC 257 /uL (0-23.9); URINE WBC 243 /uL (0-25.8)
[2022-05-04 07:23] LABS: HEMATOCRIT 31.7 % (32.4-45.2); HEMOGLOBIN 9.6 GM/dL (10.7-15.3); MCH 25.7 pg (25.7-33.7); MCHC 30.3 g/dl (32.0-36.0); MEAN CELL VOLUME 84.8 fl (80-96); PLATELET COUNT 409 10^3/uL (134-434); RBC 3.73 M/mm3 (3.60-5.2); RDW 17.4 % (11.6-15.6); WHITE BLOOD COUNT 12.2 K/mm3 (4.0-10.0)
[2022-05-04 07:35] LABS: BLOOD UREA NITROGEN 80.1 mg/dL (7-18); CALCIUM 8.7 mg/dL (8.5-10.1); MAGNESIUM 2.3 mg/dL (1.8-2.4)
[2022-05-04 07:36] LABS: ALBUMIN 1.6 g/dl (3.4-5.0)
[2022-05-04 07:39] LABS: CREATININE 1.3 mg/dL (0.55-1.3); PHOSPHOROUS 3.1 mg/dL (2.5-4.9)
[2022-05-04 07:40] LABS: BILIRUBIN,TOTAL 0.5 mg/dL (0.2-1)
[2022-05-04] MEDS: AMINO ACIDS/PROTEIN HYDROLYS 30 ML LIQUID.PKT PO SCH ×2 (08:00→17:07)
[2022-05-04 09:22] LABS: ANISOCYTOSIS 1+; MACROCYTOSIS 0
[2022-05-04] MEDS ORDERED: MULTIVITAMINS (DAILY MVI) TABLET (FP) PO SCH (10:00)
[2022-05-04] MEDS ORDERED: CEFTRIAXONE 1 GM in DEXTROSE 5%-WATER - 50 ML IVPB SCH (10:00)
[2022-05-04] MEDS: POLYETHYLENE GLYCOL (HEALTHYLAX) 3350 17 GM PACKET PO SCH ×2 (10:03→22:05)
[2022-05-04] MEDS: PANTOPRAZOLE SODIUM 40 MG VIAL IVPUSH SCH (10:04)
[2022-05-04] MEDS: FUROSEMIDE 40 MG/4 ML INJECTABLE VIAL IVPUSH SCH (10:04)
[2022-05-04] MEDS: ENOXAPARIN NA (PORCINE) 40 MG/0.4 ML DISP.SYRIN SQ SCH (10:04)
[2022-05-04] MEDS ORDERED: METOPROLOL TARTRATE 5 MG/5 ML VIAL IVPUSH ONE (10:16)
[2022-05-04] MEDS: METOPROLOL TARTRATE 5 MG/5 ML VIAL IVPUSH PRN (10:23)
[2022-05-04] MEDS ORDERED: VANCOMYCIN 1 GM/200 ML PREMIX BAG (RESTRICTED TO ID ONLY) IVPB ONE (10:45)
[2022-05-04] MEDS ORDERED: PIPERACILLIN/TAZOB 3.375 GM 3.375 GM in DEXTROSE 5%-WATER - 50 ML IVPB SCH (10:45)
[2022-05-04] MEDS: AMINO ACIDS 4.25%/D5W 1,000 ML IV SCH ×2 (11:00→22:30)
[2022-05-04] MEDS: MULTIVIT INJ. ADULT COMBO WITH VIT K 1 COMBO 10 ML VIAL IV SCH (12:13)
[2022-05-04 13:58] LABS: BLOOD UREA NITROGEN 81.3 mg/dL (7-18)
[2022-05-04 14:01] LABS: CREATININE 1.3 mg/dL (0.55-1.3)
[2022-05-04] MEDS: PIPERACILLIN/TAZOB 3.375 GM 3.375 GM in DEXTROSE 5%-WATER - 50 ML IVPB SCH (17:52)
[2022-05-04] MEDS: ENOXAPARIN NA (PORCINE) 100 MG/1 ML DISP.SYRIN SQ SCH (20:07)
[2022-05-04] MEDS: CHLORHEXIDINE GLUCONATE 4% CLEANSER FOR DECOLONIZATION TP SCH (22:05)
[2022-05-05] MEDS: AMINO ACIDS 4.25%/D5W 1,000 ML IV SCH (00:35)
[2022-05-05] MEDS: PIPERACILLIN/TAZOB 3.375 GM 3.375 GM in DEXTROSE 5%-WATER - 50 ML IVPB SCH ×3 (01:54→17:25)
[2022-05-05] MEDS: KCL 10 MEQ IVPB 10 MEQ/100 ML INFUS.BAG IVPB SCH ×2 (08:47→09:57)
[2022-05-05] MEDS: AMINO ACIDS/PROTEIN HYDROLYS 30 ML LIQUID.PKT PO SCH ×2 (08:51→17:25)
[2022-05-05] MEDS: ENOXAPARIN NA (PORCINE) 100 MG/1 ML DISP.SYRIN SQ SCH ×2 (08:51→20:37)
[2022-05-05 08:53] LABS: BASO % 1.1 % (0-2.0); EOS % 1.8 % (0-4.5); HEMATOCRIT 31.6 % (32.4-45.2); HEMOGLOBIN 9.5 GM/dL (10.7-15.3); LYMPH % 9.9 % (8-40); MCH 25.6 pg (25.7-33.7); MEAN CELL VOLUME 85.6 fl (80-96); MEAN PLT VOLUME 9.5 fl (7.5-11.1); MONO % 5.6 % (3.8-10.2); NEUT % 81.6 % (42.8-82.8); PLATELET COUNT 416 10^3/uL (134-434); RBC 3.69 M/mm3 (3.60-5.2); RDW 17.8 % (11.6-15.6)
[2022-05-05 09:14] LABS: CALCIUM 8.5 mg/dL (8.5-10.1)
[2022-05-05 09:15] LABS: ALBUMIN 1.6 g/dl (3.4-5.0); BLOOD UREA NITROGEN 84.1 mg/dL (7-18); MAGNESIUM 2.4 mg/dL (1.8-2.4)
[2022-05-05 09:18] LABS: CREATININE 1.4 mg/dL (0.55-1.3); PHOSPHOROUS 3.8 mg/dL (2.5-4.9)
[2022-05-05 09:19] LABS: BILIRUBIN,TOTAL 0.7 mg/dL (0.2-1); TOT PROT 5.9 g/dl (6.4-8.2)
[2022-05-05] MEDS: PANTOPRAZOLE SODIUM 40 MG VIAL IVPUSH SCH (09:54)
[2022-05-05] MEDS ORDERED: VANCOMYCIN 1 GM/200 ML PREMIX BAG (RESTRICTED TO ID ONLY) IVPB SCH ×2 (10:00)
[2022-05-05] MEDS ORDERED: ENOXAPARIN NA (PORCINE) 100 MG/1 ML DISP.SYRIN SQ ONE (10:13)
[2022-05-05] MEDS: POLYETHYLENE GLYCOL (HEALTHYLAX) 3350 17 GM PACKET PO SCH ×2 (11:02→22:20)
[2022-05-05] MEDS ORDERED: AMINO ACIDS 4.25%/D5W 1,000 ML IV SCH (12:00)
[2022-05-05] MEDS ORDERED: SODIUM CHLORIDE 0.45% 1,000 ML IV SCH ×2 (12:00)
[2022-05-05] MEDS: MULTIVIT INJ. ADULT COMBO WITH VIT K 1 COMBO 10 ML VIAL IV SCH (12:36)
[2022-05-05] MEDS: ACETYLCYSTEINE 20% 200MG/ML 4 ML VIAL *FOR ORAL / INH USE ONLY NEB SCH ×3 (14:54→20:31)
[2022-05-05] MEDS: ALBUTEROL SO4 0.083% IH SOL 2.5 MG/3 ML VIAL.NEB. NEB SCH ×3 (14:54→20:31)
[2022-05-05] MEDS ORDERED: ACETYLCYSTEINE 20% 200MG/ML 4 ML VIAL *FOR ORAL / INH USE ONLY NEB SCH (16:00)
[2022-05-05] MEDS ORDERED: ALBUTEROL SO4 0.083% IH SOL 2.5 MG/3 ML VIAL.NEB. NEB PRN (16:00)
[2022-05-05] MEDS: CHLORHEXIDINE GLUCONATE 4% CLEANSER FOR DECOLONIZATION TP SCH (22:30)
[2022-05-06] MEDS: PIPERACILLIN/TAZOB 3.375 GM 3.375 GM in DEXTROSE 5%-WATER - 50 ML IVPB SCH ×2 (02:00→09:34)
[2022-05-06] MEDS: ACETYLCYSTEINE 20% 200MG/ML 4 ML VIAL *FOR ORAL / INH USE ONLY NEB SCH ×3 (08:38→20:05)
[2022-05-06] MEDS: ALBUTEROL SO4 0.083% IH SOL 2.5 MG/3 ML VIAL.NEB. NEB SCH ×3 (08:39→20:05)
[2022-05-06 08:43] LABS: HEMATOCRIT 31.4 % (32.4-45.2); HEMOGLOBIN 9.4 GM/dL (10.7-15.3); MCH 25.7 pg (25.7-33.7); MEAN CELL VOLUME 85.6 fl (80-96); MEAN PLT VOLUME 9.8 fl (7.5-11.1); PLATELET COUNT 484 10^3/uL (134-434); RBC 3.67 M/mm3 (3.60-5.2); RDW 17.6 % (11.6-15.6); WHITE BLOOD COUNT 9.5 K/mm3 (4.0-10.0)
[2022-05-06 09:04] LABS: CALCIUM 8.7 mg/dL (8.5-10.1)
[2022-05-06 09:05] LABS: BLOOD UREA NITROGEN 85.2 mg/dL (7-18)
[2022-05-06 09:08] LABS: CREATININE 1.3 mg/dL (0.55-1.3)
[2022-05-06] MEDS: ENOXAPARIN NA (PORCINE) 100 MG/1 ML DISP.SYRIN SQ SCH ×2 (09:33→20:45)
[2022-05-06] MEDS: AMINO ACIDS/PROTEIN HYDROLYS 30 ML LIQUID.PKT PO SCH ×2 (09:34→18:01)
[2022-05-06] MEDS: POLYETHYLENE GLYCOL (HEALTHYLAX) 3350 17 GM PACKET PO SCH ×2 (09:34→22:25)
[2022-05-06] MEDS: PANTOPRAZOLE SODIUM 40 MG VIAL IVPUSH SCH (09:34)
[2022-05-06] MEDS: CEFTRIAXONE 1 GM in DEXTROSE 5%-WATER - 50 ML IVPB SCH (11:41)
[2022-05-06] MEDS: MULTIVIT INJ. ADULT COMBO WITH VIT K 1 COMBO 10 ML VIAL IV SCH (12:07)
[2022-05-06] MEDS: METOPROLOL TARTRATE 5 MG/5 ML VIAL IVPUSH PRN (18:03)
[2022-05-06] MEDS: CHLORHEXIDINE GLUCONATE 4% CLEANSER FOR DECOLONIZATION TP SCH (23:25)
[2022-05-07 07:37] LABS: HEMATOCRIT 31.9 % (32.4-45.2); HEMOGLOBIN 9.3 GM/dL (10.7-15.3); MCH 25.1 pg (25.7-33.7); MCHC 29.1 g/dl (32.0-36.0); MEAN CELL VOLUME 86.4 fl (80-96); MEAN PLT VOLUME 9.5 fl (7.5-11.1); PLATELET COUNT 466 10^3/uL (134-434); WHITE BLOOD COUNT 7.3 K/mm3 (4.0-10.0)
[2022-05-07 08:00] LABS: CALCIUM 9.2 mg/dL (8.5-10.1)
[2022-05-07 08:01] LABS: ALBUMIN 1.7 g/dl (3.4-5.0); BLOOD UREA NITROGEN 78.8 mg/dL (7-18); MAGNESIUM 2.6 mg/dL (1.8-2.4)
[2022-05-07 08:04] LABS: CREATININE 1.3 mg/dL (0.55-1.3); PHOSPHOROUS 4.4 mg/dL (2.5-4.9)
[2022-05-07 08:05] LABS: BILIRUBIN,TOTAL 0.7 mg/dL (0.2-1); TOT PROT 6.2 g/dl (6.4-8.2)
[2022-05-07] MEDS: ACETYLCYSTEINE 20% 200MG/ML 4 ML VIAL *FOR ORAL / INH USE ONLY NEB SCH ×4 (08:15→20:30)
[2022-05-07] MEDS: ALBUTEROL SO4 0.083% IH SOL 2.5 MG/3 ML VIAL.NEB. NEB SCH ×4 (08:15→20:31)
[2022-05-07] MEDS: ENOXAPARIN NA (PORCINE) 100 MG/1 ML DISP.SYRIN SQ SCH ×2 (08:18→20:31)
[2022-05-07] MEDS: AMINO ACIDS/PROTEIN HYDROLYS 30 ML LIQUID.PKT PO SCH ×2 (08:18→17:35)
[2022-05-07] MEDS: METOPROLOL TARTRATE 5 MG/5 ML VIAL IVPUSH PRN (09:25)
[2022-05-07] MEDS: PANTOPRAZOLE SODIUM 40 MG VIAL IVPUSH SCH (11:47)
[2022-05-07] MEDS: POLYETHYLENE GLYCOL (HEALTHYLAX) 3350 17 GM PACKET PO SCH ×2 (11:47→21:50)
[2022-05-07] MEDS: MULTIVIT INJ. ADULT COMBO WITH VIT K 1 COMBO 10 ML VIAL IV SCH (11:48)
[2022-05-07] MEDS: CEFTRIAXONE 1 GM in DEXTROSE 5%-WATER - 50 ML IVPB SCH (11:48)
[2022-05-07 13:23] LABS: ARTERIAL BLD GAS O2 SATURATION 94.8 % (95-98); ARTERIAL BLOOD GAS BASE EXCESS 11.3 mmol/L (-2-2); ARTERIAL BLOOD GAS PO2 81.2 mmHg (80-100); ARTERIAL BLOOD GAS pH 7.339 (7.350-7.450)
[2022-05-07 13:24] LABS: ALLENS TEST POSITIVE
[2022-05-07 13:25] LABS: VENT MODE PSV; VENT RATE 12
[2022-05-07] MEDS: POTASSIUM CHLORIDE 10 MEQ in DEXTROSE 5%-WATER - 1,000 ML IV SCH (14:26)
[2022-05-07] MEDS: CHLORHEXIDINE GLUCONATE 4% CLEANSER FOR DECOLONIZATION TP SCH (21:51)
[2022-05-07] MEDS: ACETAMINOPHEN 1000 MG/100 ML BAG IVPB PRN (22:45)
[2022-05-08] MEDS: POTASSIUM CHLORIDE 10 MEQ in DEXTROSE 5%-WATER - 1,000 ML IV SCH ×2 (04:06→11:32)
[2022-05-08] MEDS: ACETYLCYSTEINE 20% 200MG/ML 4 ML VIAL *FOR ORAL / INH USE ONLY NEB SCH ×4 (08:00→20:30)
[2022-05-08] MEDS: ALBUTEROL SO4 0.083% IH SOL 2.5 MG/3 ML VIAL.NEB. NEB SCH ×4 (08:00→20:30)
[2022-05-08] MEDS: CEFTRIAXONE 1 GM in DEXTROSE 5%-WATER - 50 ML IVPB SCH (10:55)
[2022-05-08] MEDS: PANTOPRAZOLE SODIUM 40 MG VIAL IVPUSH SCH (10:55)
[2022-05-08] MEDS: ENOXAPARIN NA (PORCINE) 100 MG/1 ML DISP.SYRIN SQ SCH ×2 (10:55→21:12)
[2022-05-08] MEDS: AMINO ACIDS/PROTEIN HYDROLYS 30 ML LIQUID.PKT PO SCH ×2 (11:26→21:12)
[2022-05-08] MEDS: POLYETHYLENE GLYCOL (HEALTHYLAX) 3350 17 GM PACKET PO SCH ×2 (11:29→21:12)
[2022-05-08] MEDS: MULTIVIT INJ. ADULT COMBO WITH VIT K 1 COMBO 10 ML VIAL IV SCH (11:30)
[2022-05-08] MEDS: ACETAMINOPHEN 1000 MG/100 ML BAG IVPB PRN (12:01)
[2022-05-08] MEDS: CHLORHEXIDINE GLUCONATE 4% CLEANSER FOR DECOLONIZATION TP SCH (21:12)
[2022-05-09] MEDS: POTASSIUM CHLORIDE 10 MEQ in DEXTROSE 5%-WATER - 1,000 ML IV SCH (03:00)
[2022-05-09 07:27] LABS: HEMATOCRIT 31.3 % (32.4-45.2); HEMOGLOBIN 9.5 GM/dL (10.7-15.3); MCH 25.8 pg (25.7-33.7); MCHC 30.2 g/dl (32.0-36.0); MEAN CELL VOLUME 85.6 fl (80-96); MEAN PLT VOLUME 10.5 fl (7.5-11.1); PLATELET COUNT 486 10^3/uL (134-434); RBC 3.66 M/mm3 (3.60-5.2); RDW 18.1 % (11.6-15.6); WHITE BLOOD COUNT 6.3 K/mm3 (4.0-10.0)
[2022-05-09 07:32] LABS: CALCIUM 8.6 mg/dL (8.5-10.1)
[2022-05-09 07:33] LABS: ALBUMIN 1.7 g/dl (3.4-5.0); BLOOD UREA NITROGEN 64.8 mg/dL (7-18); MAGNESIUM 2.6 mg/dL (1.8-2.4)
[2022-05-09 07:36] LABS: CREATININE 1.2 mg/dL (0.55-1.3); PHOSPHOROUS 2.9 mg/dL (2.5-4.9)
[2022-05-09 07:37] LABS: BILIRUBIN,TOTAL 0.4 mg/dL (0.2-1); TOT PROT 6.2 g/dl (6.4-8.2)
[2022-05-09] MEDS ORDERED: DEXTROSE 5%-WATER - 1,000 ML IV SCH (07:45)
[2022-05-09] MEDS ORDERED: POTASSIUM CHLORIDE ORAL LIQUID 20 MEQ/15 ML PO ONE (07:48)
[2022-05-09] MEDS: ACETYLCYSTEINE 20% 200MG/ML 4 ML VIAL *FOR ORAL / INH USE ONLY NEB SCH ×4 (08:09→20:27)
[2022-05-09] MEDS: ALBUTEROL SO4 0.083% IH SOL 2.5 MG/3 ML VIAL.NEB. NEB SCH ×4 (08:09→20:28)
[2022-05-09] MEDS: PANTOPRAZOLE SODIUM 40 MG VIAL IVPUSH SCH (10:48)
[2022-05-09] MEDS: AMINO ACIDS/PROTEIN HYDROLYS 30 ML LIQUID.PKT PO SCH ×2 (10:48→17:57)
[2022-05-09] MEDS: CEFTRIAXONE 1 GM in DEXTROSE 5%-WATER - 50 ML IVPB SCH (10:48)
[2022-05-09] MEDS: POLYETHYLENE GLYCOL (HEALTHYLAX) 3350 17 GM PACKET PO SCH ×2 (10:49→21:22)
[2022-05-09] MEDS: ENOXAPARIN NA (PORCINE) 100 MG/1 ML DISP.SYRIN SQ SCH ×2 (10:49→21:22)
[2022-05-09] MEDS: DEXTROSE 5%-WATER - 1,000 ML IV SCH (11:00)
[2022-05-09] MEDS: METOPROLOL TARTRATE 5 MG/5 ML VIAL IVPUSH PRN (17:58)
[2022-05-09] MEDS: CHLORHEXIDINE GLUCONATE 4% CLEANSER FOR DECOLONIZATION TP SCH (21:22)
[2022-05-10 07:37] LABS: CALCIUM 8.6 mg/dL (8.5-10.1)
[2022-05-10 07:38] LABS: ALBUMIN 1.7 g/dl (3.4-5.0); BLOOD UREA NITROGEN 55.2 mg/dL (7-18); MAGNESIUM 2.5 mg/dL (1.8-2.4)
[2022-05-10 07:41] LABS: PHOSPHOROUS 3.5 mg/dL (2.5-4.9)
[2022-05-10 07:43] LABS: BILIRUBIN,TOTAL 0.4 mg/dL (0.2-1); TOT PROT 5.9 g/dl (6.4-8.2)
[2022-05-10 08:12] LABS: HEMATOCRIT 30.3 % (32.4-45.2); HEMOGLOBIN 8.9 GM/dL (10.7-15.3); MCH 25.5 pg (25.7-33.7); MCHC 29.2 g/dl (32.0-36.0); MEAN CELL VOLUME 87.3 fl (80-96); MEAN PLT VOLUME 10.2 fl (7.5-11.1); PLATELET COUNT 439 10^3/uL (134-434); RBC 3.47 M/mm3 (3.60-5.2); RDW 17.9 % (11.6-15.6); WHITE BLOOD COUNT 5.6 K/mm3 (4.0-10.0)
[2022-05-10] MEDS: ACETYLCYSTEINE 20% 200MG/ML 4 ML VIAL *FOR ORAL / INH USE ONLY NEB SCH ×2 (08:34→12:17)
[2022-05-10] MEDS: ALBUTEROL SO4 0.083% IH SOL 2.5 MG/3 ML VIAL.NEB. NEB SCH ×2 (08:34→12:17)
[2022-05-10] MEDS: METOPROLOL TARTRATE 5 MG/5 ML VIAL IVPUSH PRN ×2 (10:00→17:57)
[2022-05-10] MEDS: ENOXAPARIN NA (PORCINE) 100 MG/1 ML DISP.SYRIN SQ SCH ×2 (10:11→20:21)
[2022-05-10] MEDS: CEFTRIAXONE 1 GM in DEXTROSE 5%-WATER - 50 ML IVPB SCH (10:11)
[2022-05-10] MEDS: POLYETHYLENE GLYCOL (HEALTHYLAX) 3350 17 GM PACKET PO SCH ×2 (10:12→23:00)
[2022-05-10] MEDS: PANTOPRAZOLE SODIUM 40 MG VIAL IVPUSH SCH (10:12)
[2022-05-10] MEDS: AMINO ACIDS/PROTEIN HYDROLYS 30 ML LIQUID.PKT PO SCH ×2 (10:12→17:51)
[2022-05-10] MEDS: LACTOBACILLUS ACIDOPHILUS 1 TABLET PO SCH (13:57)
[2022-05-10] MEDS: DEXTROSE 5%-WATER - 1,000 ML IV SCH ×2 (13:58→20:30)
[2022-05-10] MEDS ORDERED: ACETAMINOPHEN 1000 MG/100 ML BAG IVPB ONE (14:00)
[2022-05-10] MEDS ORDERED: OXYMETAZOLINE 0.05% NASAL SOLUTION 15 ML BOTTLE NS ONE (14:30)
[2022-05-10] MEDS: CHLORHEXIDINE GLUCONATE 4% CLEANSER FOR DECOLONIZATION TP SCH (23:01)
[2022-05-11] MEDS: VANCOMYCIN 250 MG/5 ML ORAL SOLUTION PO SCH ×4 (00:02→20:02)
[2022-05-11 08:14] LABS: HEMATOCRIT 29.4 % (32.4-45.2); HEMOGLOBIN 8.8 GM/dL (10.7-15.3); MCH 25.6 pg (25.7-33.7); MCHC 29.8 g/dl (32.0-36.0); MEAN CELL VOLUME 85.9 fl (80-96); MEAN PLT VOLUME 10.4 fl (7.5-11.1); PLATELET COUNT 388 10^3/uL (134-434); RBC 3.42 M/mm3 (3.60-5.2); RDW 17.6 % (11.6-15.6); WHITE BLOOD COUNT 6.6 K/mm3 (4.0-10.0)
[2022-05-11 08:44] LABS: ALBUMIN 1.8 g/dl (3.4-5.0); CALCIUM 8.6 mg/dL (8.5-10.1)
[2022-05-11 08:45] LABS: BLOOD UREA NITROGEN 45.1 mg/dL (7-18); MAGNESIUM 2.3 mg/dL (1.8-2.4)
[2022-05-11 08:46] LABS: CREATININE 0.9 mg/dL (0.55-1.3); PHOSPHOROUS 2.9 mg/dL (2.5-4.9)
[2022-05-11 08:47] LABS: BILIRUBIN,TOTAL 0.3 mg/dL (0.2-1)
[2022-05-11] MEDS: ENOXAPARIN NA (PORCINE) 100 MG/1 ML DISP.SYRIN SQ SCH ×2 (09:00→22:11)
[2022-05-11] MEDS: AMINO ACIDS/PROTEIN HYDROLYS 30 ML LIQUID.PKT PO SCH ×2 (11:23→20:01)
[2022-05-11] MEDS: LACTOBACILLUS ACIDOPHILUS 1 TABLET PO SCH (11:23)
[2022-05-11] MEDS: POLYETHYLENE GLYCOL (HEALTHYLAX) 3350 17 GM PACKET PO SCH ×2 (11:23→22:11)
[2022-05-11] MEDS: CEFTRIAXONE 1 GM in DEXTROSE 5%-WATER - 50 ML IVPB SCH ×2 (11:24→11:57)
[2022-05-11] MEDS: PANTOPRAZOLE SODIUM 40 MG VIAL IVPUSH SCH (11:24)
[2022-05-11] MEDS: METOPROLOL TARTRATE 5 MG/5 ML VIAL IVPUSH PRN (11:53)
[2022-05-11] MEDS: metoPROLOL SUCCINATE 25 MG TAB.SR.24H (FP) PO SCH (11:56)
[2022-05-11] MEDS ORDERED: AMINO ACIDS 4.25%/D5W 1,000 ML IV SCH (15:00)
[2022-05-11] MEDS: MULTIVIT INJ. ADULT COMBO WITH VIT K 1 COMBO 10 ML VIAL IV SCH (16:24)
[2022-05-11] MEDS ORDERED: SMOFLIPID - FAT EMUL/SOY/MCT/OLIV/FISH OIL 250 ML EMULSION IV SCH (22:00)
[2022-05-11] MEDS ORDERED: FUROSEMIDE 40 MG/4 ML INJECTABLE VIAL IVPUSH SCH (22:00)
[2022-05-11] MEDS: CHLORHEXIDINE GLUCONATE 4% CLEANSER FOR DECOLONIZATION TP SCH (22:11)
[2022-05-11] MEDS: FAT EMUL/SOY/MCT/OLIV/FISH OIL 250 ML IV SCH (22:12)
[2022-05-12] MEDS: VANCOMYCIN 250 MG/5 ML ORAL SOLUTION PO SCH ×4 (00:36→17:03)
[2022-05-12] MEDS ORDERED: SODIUM CHLORIDE 250 ML IV STA (07:20)
[2022-05-12] MEDS: AMINO ACIDS 4.25%/D5W 1,000 ML IV SCH ×2 (08:47→17:13)
[2022-05-12 09:15] LABS: HEMATOCRIT 29.7 % (32.4-45.2); HEMOGLOBIN 8.7 GM/dL (10.7-15.3); MCH 25.7 pg (25.7-33.7); MCHC 29.2 g/dl (32.0-36.0); MEAN CELL VOLUME 87.9 fl (80-96); MEAN PLT VOLUME 10.2 fl (7.5-11.1); PLATELET COUNT 340 10^3/uL (134-434); RBC 3.38 M/mm3 (3.60-5.2); RDW 17.7 % (11.6-15.6); WHITE BLOOD COUNT 6.5 K/mm3 (4.0-10.0)
[2022-05-12] MEDS: PANTOPRAZOLE SODIUM 40 MG VIAL IVPUSH SCH (09:24)
[2022-05-12] MEDS: AMINO ACIDS/PROTEIN HYDROLYS 30 ML LIQUID.PKT PO SCH ×2 (09:24→16:49)
[2022-05-12] MEDS: LACTOBACILLUS ACIDOPHILUS 1 TABLET PO SCH (09:24)
[2022-05-12] MEDS: ENOXAPARIN NA (PORCINE) 100 MG/1 ML DISP.SYRIN SQ SCH ×2 (09:24→20:25)
[2022-05-12] MEDS: POLYETHYLENE GLYCOL (HEALTHYLAX) 3350 17 GM PACKET PO SCH ×2 (09:24→21:08)
[2022-05-12] MEDS: metoPROLOL SUCCINATE 25 MG TAB.SR.24H (FP) PO SCH (09:25)
[2022-05-12 10:03] LABS: ALBUMIN 1.7 g/dl (3.4-5.0); BLOOD UREA NITROGEN 42.5 mg/dL (7-18); CALCIUM 8.7 mg/dL (8.5-10.1); MAGNESIUM 2.2 mg/dL (1.8-2.4)
[2022-05-12 10:08] LABS: CREATININE 0.9 mg/dL (0.55-1.3); PHOSPHOROUS 3.8 mg/dL (2.5-4.9)
[2022-05-12 10:10] LABS: BILIRUBIN,TOTAL 0.4 mg/dL (0.2-1)
[2022-05-12] MEDS ORDERED: ALBUMIN HUMAN 5% 250 ML IV SOLUTION IV ONE (10:33)
[2022-05-12] MEDS ORDERED: FUROSEMIDE 40 MG/4 ML INJECTABLE VIAL IVPUSH SCH (10:45)
[2022-05-12] MEDS ORDERED: ALBUMIN HUMAN 25% 12.5 GM/50 ML VIAL IV ONE (10:46)
[2022-05-12] MEDS: MULTIVIT INJ. ADULT COMBO WITH VIT K 1 COMBO 10 ML VIAL IV SCH (17:14)
[2022-05-12] MEDS: METOPROLOL TARTRATE 5 MG/5 ML VIAL IVPUSH PRN (18:22)
[2022-05-12] MEDS: CHLORHEXIDINE GLUCONATE 4% CLEANSER FOR DECOLONIZATION TP SCH (21:09)
[2022-05-12] MEDS: FAT EMUL/SOY/MCT/OLIV/FISH OIL 250 ML IV SCH (21:09)
[2022-05-13] MEDS: VANCOMYCIN 250 MG/5 ML ORAL SOLUTION PO SCH ×3 (00:52→11:20)
[2022-05-13] MEDS: AMINO ACIDS 4.25%/D5W 1,000 ML IV SCH ×3 (05:27→10:19)
[2022-05-13] MEDS: AMINO ACIDS/PROTEIN HYDROLYS 30 ML LIQUID.PKT PO SCH ×2 (07:48→17:22)
[2022-05-13 08:04] LABS: HEMATOCRIT 26.1 % (32.4-45.2); HEMOGLOBIN 7.8 GM/dL (10.7-15.3); MCH 25.5 pg (25.7-33.7); MCHC 29.8 g/dl (32.0-36.0); MEAN CELL VOLUME 85.6 fl (80-96); MEAN PLT VOLUME 10.1 fl (7.5-11.1); PLATELET COUNT 283 10^3/uL (134-434); RBC 3.05 M/mm3 (3.60-5.2); RDW 17.7 % (11.6-15.6); WHITE BLOOD COUNT 6.3 K/mm3 (4.0-10.0)
[2022-05-13 08:29] LABS: BLOOD UREA NITROGEN 47.8 mg/dL (7-18); CALCIUM 8.6 mg/dL (8.5-10.1)
[2022-05-13 08:31] LABS: ALBUMIN 1.9 g/dl (3.4-5.0); MAGNESIUM 2.1 mg/dL (1.8-2.4)
[2022-05-13 08:33] LABS: CREATININE 0.9 mg/dL (0.55-1.3); PHOSPHOROUS 2.1 mg/dL (2.5-4.9); TOT PROT 5.9 g/dl (6.4-8.2)
[2022-05-13 08:35] LABS: BILIRUBIN,TOTAL 0.4 mg/dL (0.2-1)
[2022-05-13] MEDS: METOPROLOL TARTRATE 5 MG/5 ML VIAL IVPUSH PRN ×2 (08:45→21:30)
[2022-05-13] MEDS: ENOXAPARIN NA (PORCINE) 100 MG/1 ML DISP.SYRIN SQ SCH ×2 (08:45→21:00)
[2022-05-13] MEDS: POLYETHYLENE GLYCOL (HEALTHYLAX) 3350 17 GM PACKET PO SCH ×2 (09:34→21:28)
[2022-05-13] MEDS: metoPROLOL SUCCINATE 25 MG TAB.SR.24H (FP) PO SCH (09:34)
[2022-05-13] MEDS: PANTOPRAZOLE SODIUM 40 MG VIAL IVPUSH SCH (09:34)
[2022-05-13] MEDS: LACTOBACILLUS ACIDOPHILUS 1 TABLET PO SCH (09:34)
[2022-05-13] MEDS: ACETAMINOPHEN 1000 MG/100 ML BAG IVPB PRN ×2 (10:18→20:59)
[2022-05-13] MEDS ORDERED: KCL 10 MEQ IVPB 10 MEQ/100 ML INFUS.BAG IVPB SCH (11:30)
[2022-05-13] MEDS ORDERED: POTASSIUM PHOSPHATE 30 MM in DEXTROSE 5%-WATER - 250 ML IVPB ONE (15:30)
[2022-05-13] MEDS: MULTIVIT INJ. ADULT COMBO WITH VIT K 1 COMBO 10 ML VIAL IV SCH (17:22)
[2022-05-13] MEDS: FAT EMUL/SOY/MCT/OLIV/FISH OIL 250 ML IV SCH (21:28)
[2022-05-13] MEDS: CHLORHEXIDINE GLUCONATE 4% CLEANSER FOR DECOLONIZATION TP SCH (21:28)
[2022-05-14 00:51] LABS: ARTERIAL BLOOD GAS BASE EXCESS 9.3 mmol/L (-2-2); ARTERIAL BLOOD GAS PO2 78.6 mmHg (80-100)
[2022-05-14 01:19] LABS: ALLENS TEST POSITIVE; VENT MODE PSV; VENT RATE 12
[2022-05-14] MEDS: ACETAMINOPHEN 1000 MG/100 ML BAG IVPB PRN (06:24)
[2022-05-14] MEDS: METOPROLOL TARTRATE 5 MG/5 ML VIAL IVPUSH PRN ×2 (06:25→14:14)
[2022-05-14 07:18] LABS: HEMATOCRIT 27.6 % (32.4-45.2); HEMOGLOBIN 8.2 GM/dL (10.7-15.3); MCH 25.5 pg (25.7-33.7); MCHC 29.7 g/dl (32.0-36.0); MEAN CELL VOLUME 85.8 fl (80-96); MEAN PLT VOLUME 10.6 fl (7.5-11.1); PLATELET COUNT 269 10^3/uL (134-434); RBC 3.22 M/mm3 (3.60-5.2); RDW 18.3 % (11.6-15.6); WHITE BLOOD COUNT 4.8 K/mm3 (4.0-10.0)
[2022-05-14 07:59] LABS: ALBUMIN 1.9 g/dl (3.4-5.0); BLOOD UREA NITROGEN 44.1 mg/dL (7-18); CALCIUM 8.6 mg/dL (8.5-10.1); MAGNESIUM 1.8 mg/dL (1.8-2.4)
[2022-05-14 08:02] LABS: CREATININE 0.8 mg/dL (0.55-1.3); PHOSPHOROUS 3.1 mg/dL (2.5-4.9)
[2022-05-14 08:03] LABS: BILIRUBIN,TOTAL 0.5 mg/dL (0.2-1)
[2022-05-14 08:04] LABS: TOT PROT 5.8 g/dl (6.4-8.2)
[2022-05-14] MEDS: PANTOPRAZOLE SODIUM 40 MG VIAL IVPUSH SCH (09:05)
[2022-05-14] MEDS: ENOXAPARIN NA (PORCINE) 100 MG/1 ML DISP.SYRIN SQ SCH ×2 (09:05→21:23)
[2022-05-14] MEDS: metoPROLOL SUCCINATE 25 MG TAB.SR.24H (FP) PO SCH (09:06)
[2022-05-14] MEDS: POLYETHYLENE GLYCOL (HEALTHYLAX) 3350 17 GM PACKET PO SCH ×2 (09:06→21:24)
[2022-05-14] MEDS: AMINO ACIDS/PROTEIN HYDROLYS 30 ML LIQUID.PKT PO SCH ×2 (09:06→17:12)
[2022-05-14] MEDS: LACTOBACILLUS ACIDOPHILUS 1 TABLET PO SCH (09:06)
[2022-05-14] MEDS: AMINO ACIDS 4.25%/D5W 1,000 ML IV SCH (10:03)
[2022-05-14] MEDS ORDERED: FUROSEMIDE 40 MG/4 ML INJECTABLE VIAL IVPUSH SCH (14:00)
[2022-05-14] MEDS: MULTIVIT INJ. ADULT COMBO WITH VIT K 1 COMBO 10 ML VIAL IV SCH (17:17)
[2022-05-14] MEDS: FUROSEMIDE 40 MG/4 ML INJECTABLE VIAL IVPUSH SCH (21:23)
[2022-05-14] MEDS: CHLORHEXIDINE GLUCONATE 4% CLEANSER FOR DECOLONIZATION TP SCH (21:24)
[2022-05-15] MEDS: FAT EMUL/SOY/MCT/OLIV/FISH OIL 250 ML IV SCH ×2 (01:03→21:35)
[2022-05-15] MEDS: ENOXAPARIN NA (PORCINE) 100 MG/1 ML DISP.SYRIN SQ SCH ×2 (08:44→19:37)
[2022-05-15 08:45] LABS: HEMOGLOBIN 7.8 GM/dL (10.7-15.3); MCH 25.8 pg (25.7-33.7); MCHC 30.1 g/dl (32.0-36.0); MEAN CELL VOLUME 85.6 fl (80-96); MEAN PLT VOLUME 10.7 fl (7.5-11.1); PLATELET COUNT 259 10^3/uL (134-434); RBC 3.03 M/mm3 (3.60-5.2); RDW 18.4 % (11.6-15.6)
[2022-05-15] MEDS: AMINO ACIDS/PROTEIN HYDROLYS 30 ML LIQUID.PKT PO SCH ×2 (08:45→17:42)
[2022-05-15 09:11] LABS: ALBUMIN 1.8 g/dl (3.4-5.0); BLOOD UREA NITROGEN 40.6 mg/dL (7-18); CALCIUM 8.4 mg/dL (8.5-10.1)
[2022-05-15 09:12] LABS: MAGNESIUM 1.7 mg/dL (1.8-2.4)
[2022-05-15 09:14] LABS: CREATININE 0.8 mg/dL (0.55-1.3); PHOSPHOROUS 2.4 mg/dL (2.5-4.9)
[2022-05-15 09:15] LABS: TOT PROT 5.7 g/dl (6.4-8.2)
[2022-05-15 09:16] LABS: BILIRUBIN,TOTAL 0.6 mg/dL (0.2-1)
[2022-05-15] MEDS: FUROSEMIDE 40 MG/4 ML INJECTABLE VIAL IVPUSH SCH ×2 (09:25→21:35)
[2022-05-15] MEDS: PANTOPRAZOLE SODIUM 40 MG VIAL IVPUSH SCH (09:25)
[2022-05-15] MEDS: POLYETHYLENE GLYCOL (HEALTHYLAX) 3350 17 GM PACKET PO SCH ×2 (09:26→21:35)
[2022-05-15] MEDS: metoPROLOL SUCCINATE 25 MG TAB.SR.24H (FP) PO SCH (09:27)
[2022-05-15] MEDS: LACTOBACILLUS ACIDOPHILUS 1 TABLET PO SCH (10:00)
[2022-05-15] MEDS ORDERED: AMINO ACIDS 4.25%/D5W 1,000 ML IV SCH (10:21)
[2022-05-15] MEDS ORDERED: POTASSIUM CHLORIDE ORAL LIQUID 20 MEQ/15 ML PO SCH (10:30)
[2022-05-15] MEDS ORDERED: POTASSIUM CHLORIDE 40 MEQ in AMINO ACIDS 4.25%/D5W 1,000 ML IV SCH (12:00)
[2022-05-15] MEDS: KCL 10 MEQ IVPB 10 MEQ/100 ML INFUS.BAG IVPB SCH ×3 (12:26→14:35)
[2022-05-15] MEDS: MULTIVIT INJ. ADULT COMBO WITH VIT K 1 COMBO 10 ML VIAL IV SCH (14:16)
[2022-05-15] MEDS: POTASSIUM CHLORIDE 40 MEQ in AMINO ACIDS 4.25%/D5W 1,000 ML IV SCH (14:17)
[2022-05-15] MEDS: METOPROLOL TARTRATE 5 MG/5 ML VIAL IVPUSH PRN (19:36)
[2022-05-15] MEDS: CHLORHEXIDINE GLUCONATE 4% CLEANSER FOR DECOLONIZATION TP SCH (21:35)
[2022-05-16] MEDS: ENOXAPARIN NA (PORCINE) 100 MG/1 ML DISP.SYRIN SQ SCH ×2 (00:21→09:33)
[2022-05-16] MEDS: POTASSIUM CHLORIDE 40 MEQ in AMINO ACIDS 4.25%/D5W 1,000 ML IV SCH ×2 (04:08→17:45)
[2022-05-16] MEDS: METOPROLOL TARTRATE 5 MG/5 ML VIAL IVPUSH PRN ×3 (05:00→18:11)
[2022-05-16 07:47] LABS: HEMATOCRIT 26.4 % (32.4-45.2); HEMOGLOBIN 7.9 GM/dL (10.7-15.3); MCH 25.5 pg (25.7-33.7); MCHC 29.8 g/dl (32.0-36.0); MEAN CELL VOLUME 85.4 fl (80-96); MEAN PLT VOLUME 10.2 fl (7.5-11.1); PLATELET COUNT 241 10^3/uL (134-434); RDW 18.8 % (11.6-15.6); WHITE BLOOD COUNT 5.4 K/mm3 (4.0-10.0)
[2022-05-16 07:56] LABS: CALCIUM 8.2 mg/dL (8.5-10.1)
[2022-05-16 07:57] LABS: ALBUMIN 1.8 g/dl (3.4-5.0); MAGNESIUM 1.3 mg/dL (1.8-2.4)
[2022-05-16 08:00] LABS: CREATININE 0.7 mg/dL (0.55-1.3); PHOSPHOROUS 1.7 mg/dL (2.5-4.9)
[2022-05-16 08:01] LABS: BILIRUBIN,TOTAL 0.5 mg/dL (0.2-1); TOT PROT 5.9 g/dl (6.4-8.2)
[2022-05-16] MEDS: POLYETHYLENE GLYCOL (HEALTHYLAX) 3350 17 GM PACKET PO SCH ×2 (09:29→21:21)
[2022-05-16] MEDS: LACTOBACILLUS ACIDOPHILUS 1 TABLET PO SCH (09:29)
[2022-05-16] MEDS: AMINO ACIDS/PROTEIN HYDROLYS 30 ML LIQUID.PKT PO SCH ×2 (09:29→16:42)
[2022-05-16] MEDS: metoPROLOL SUCCINATE 25 MG TAB.SR.24H (FP) PO SCH (09:29)
[2022-05-16] MEDS: PANTOPRAZOLE SODIUM 40 MG VIAL IVPUSH SCH (09:33)
[2022-05-16] MEDS: FUROSEMIDE 40 MG/4 ML INJECTABLE VIAL IVPUSH SCH ×2 (09:33→21:20)
[2022-05-16] MEDS ORDERED: POTASSIUM PHOSPHATE 15 MM in DEXTROSE 5%-WATER - 250 ML IVPB ONE (11:00)
[2022-05-16] MEDS: DEXTROSE 5%-WATER - 1,000 ML IV SCH (13:00)
[2022-05-16] MEDS: MULTIVIT INJ. ADULT COMBO WITH VIT K 1 COMBO 10 ML VIAL IV SCH (17:44)
[2022-05-16] MEDS: FAT EMUL/SOY/MCT/OLIV/FISH OIL 250 ML IV SCH (21:20)
[2022-05-16] MEDS: CHLORHEXIDINE GLUCONATE 4% CLEANSER FOR DECOLONIZATION TP SCH (21:21)
[2022-05-17] MEDS: METOPROLOL TARTRATE 5 MG/5 ML VIAL IVPUSH PRN ×2 (03:53→07:51)
[2022-05-17] MEDS: POTASSIUM CHLORIDE 40 MEQ in AMINO ACIDS 4.25%/D5W 1,000 ML IV SCH ×3 (06:58→23:50)
[2022-05-17 07:49] LABS: HEMATOCRIT 25.4 % (32.4-45.2); HEMOGLOBIN 7.7 GM/dL (10.7-15.3); MCH 25.8 pg (25.7-33.7); MCHC 30.3 g/dl (32.0-36.0); MEAN PLT VOLUME 10.6 fl (7.5-11.1); PLATELET COUNT 233 10^3/uL (134-434); RBC 2.99 M/mm3 (3.60-5.2); RDW 18.2 % (11.6-15.6); WHITE BLOOD COUNT 6.2 K/mm3 (4.0-10.0)
[2022-05-17 08:14] LABS: CALCIUM 7.9 mg/dL (8.5-10.1)
[2022-05-17 08:15] LABS: BLOOD UREA NITROGEN 40.6 mg/dL (7-18); MAGNESIUM 1.2 mg/dL (1.8-2.4)
[2022-05-17 08:18] LABS: CREATININE 0.7 mg/dL (0.55-1.3)
[2022-05-17] MEDS ORDERED: MAGNESIUM SULF 50% (8.12 MEQ/2 ML-1 GM VIAL) IVPB ONE (08:59)
[2022-05-17] MEDS: AMINO ACIDS/PROTEIN HYDROLYS 30 ML LIQUID.PKT PO SCH ×2 (09:51→17:15)
[2022-05-17] MEDS: ENOXAPARIN NA (PORCINE) 100 MG/1 ML DISP.SYRIN SQ SCH ×2 (09:51→20:30)
[2022-05-17] MEDS: POLYETHYLENE GLYCOL (HEALTHYLAX) 3350 17 GM PACKET PO SCH ×2 (09:51→22:02)
[2022-05-17] MEDS: LACTOBACILLUS ACIDOPHILUS 1 TABLET PO SCH (09:51)
[2022-05-17] MEDS: metoPROLOL SUCCINATE 25 MG TAB.SR.24H (FP) PO SCH (09:52)
[2022-05-17] MEDS: PANTOPRAZOLE SODIUM 40 MG VIAL IVPUSH SCH (09:52)
[2022-05-17] MEDS: FUROSEMIDE 40 MG/4 ML INJECTABLE VIAL IVPUSH SCH ×2 (09:52→13:02)
[2022-05-17] MEDS ORDERED: FUROSEMIDE 40 MG/4 ML INJECTABLE VIAL IVPUSH ONE (10:34)
[2022-05-17] MEDS: ALBUMIN HUMAN 25% 100 ML VIAL IV SCH ×2 (11:57→22:04)
[2022-05-17] MEDS: DEXTROSE 5%-WATER - 1,000 ML IV SCH (17:14)
[2022-05-17] MEDS: MULTIVIT INJ. ADULT COMBO WITH VIT K 1 COMBO 10 ML VIAL IV SCH (17:14)
[2022-05-17] MEDS: FAT EMUL/SOY/MCT/OLIV/FISH OIL 250 ML IV SCH (22:02)
[2022-05-17] MEDS: CHLORHEXIDINE GLUCONATE 4% CLEANSER FOR DECOLONIZATION TP SCH (22:02)
[2022-05-18] MEDS: METOPROLOL TARTRATE 5 MG/5 ML VIAL IVPUSH PRN (01:20)
[2022-05-18] MEDS: FUROSEMIDE 40 MG/4 ML INJECTABLE VIAL IVPUSH SCH ×3 (01:30→21:26)
[2022-05-18] MEDS: POTASSIUM CHLORIDE 40 MEQ in AMINO ACIDS 4.25%/D5W 1,000 ML IV SCH ×3 (03:21→21:28)
[2022-05-18 07:43] LABS: CALCIUM 7.8 mg/dL (8.5-10.1)
[2022-05-18 07:44] LABS: BLOOD UREA NITROGEN 44.9 mg/dL (7-18); MAGNESIUM 1.1 mg/dL (1.8-2.4)
[2022-05-18 07:47] LABS: CREATININE 0.8 mg/dL (0.55-1.3); PHOSPHOROUS 2.2 mg/dL (2.5-4.9)
[2022-05-18 07:48] LABS: BILIRUBIN,TOTAL 0.6 mg/dL (0.2-1); TOT PROT 6.4 g/dl (6.4-8.2)
[2022-05-18 07:52] LABS: ALBUMIN 2.5 g/dl (3.4-5.0)
[2022-05-18 07:58] LABS: BASO % 0.6 % (0-2.0); EOS % 1.9 % (0-4.5); HEMATOCRIT 25.9 % (32.4-45.2); HEMOGLOBIN 7.9 GM/dL (10.7-15.3); LYMPH % 12.9 % (8-40); MCHC 30.5 g/dl (32.0-36.0); MEAN CELL VOLUME 85.3 fl (80-96); MEAN PLT VOLUME 10.8 fl (7.5-11.1); MONO % 5.8 % (3.8-10.2); NEUT % 78.8 % (42.8-82.8); PLATELET COUNT 226 10^3/uL (134-434); RBC 3.03 M/mm3 (3.60-5.2); RDW 18.4 % (11.6-15.6); WHITE BLOOD COUNT 7.1 K/mm3 (4.0-10.0)
[2022-05-18] MEDS: METOPROLOL TARTRATE 5 MG/5 ML VIAL IVPUSH SCH ×3 (08:36→18:20)
[2022-05-18] MEDS: ENOXAPARIN NA (PORCINE) 100 MG/1 ML DISP.SYRIN SQ SCH ×2 (08:37→20:37)
[2022-05-18] MEDS: LACTOBACILLUS ACIDOPHILUS 1 TABLET PO SCH (10:05)
[2022-05-18 10:06] LABS: ARTERIAL BLD GAS O2 SATURATION 98.5 % (95-98); ARTERIAL BLOOD GAS BASE EXCESS 6.2 mmol/L (-2-2); ARTERIAL BLOOD GAS PO2 128.9 mmHg (80-100); ARTERIAL BLOOD GAS pH 7.404 (7.350-7.450)
[2022-05-18 10:07] LABS: ALLENS TEST POSITIVE
[2022-05-18] MEDS: PANTOPRAZOLE SODIUM 40 MG VIAL IVPUSH SCH (10:08)
[2022-05-18 10:09] LABS: VENT RATE 20
[2022-05-18] MEDS: POLYETHYLENE GLYCOL (HEALTHYLAX) 3350 17 GM PACKET PO SCH ×2 (10:15→21:27)
[2022-05-18] MEDS: AMINO ACIDS/PROTEIN HYDROLYS 30 ML LIQUID.PKT PO SCH ×2 (10:15→17:48)
[2022-05-18] MEDS ORDERED: MAGNESIUM SULF 50% (8.12 MEQ/2 ML-1 GM VIAL) IVPB ONE (12:15)
[2022-05-18] MEDS ORDERED: POTASSIUM PHOSPHATE 30 MM in DEXTROSE 5%-WATER - 500 ML IVPB ONE (13:15)
[2022-05-18] MEDS ORDERED: ALBUMIN HUMAN 25% 12.5 GM/50 ML VIAL IV ONE (20:00)
[2022-05-18] MEDS: CHLORHEXIDINE GLUCONATE 4% CLEANSER FOR DECOLONIZATION TP SCH (21:26)
[2022-05-18] MEDS: MULTIVIT INJ. ADULT COMBO WITH VIT K 1 COMBO 10 ML VIAL IV SCH (21:27)
[2022-05-18] MEDS: FAT EMUL/SOY/MCT/OLIV/FISH OIL 250 ML IV SCH (21:27)
[2022-05-19] MEDS: POTASSIUM CHLORIDE 40 MEQ in AMINO ACIDS 4.25%/D5W 1,000 ML IV SCH ×2 (00:43→23:32)
[2022-05-19] MEDS: METOPROLOL TARTRATE 5 MG/5 ML VIAL IVPUSH SCH ×5 (01:18→21:30)
[2022-05-19 08:25] LABS: BASO % 0.2 % (0-2.0); EOS % 1.6 % (0-4.5); HEMATOCRIT 24.4 % (32.4-45.2); HEMOGLOBIN 7.3 GM/dL (10.7-15.3); LYMPH % 12.8 % (8-40); MCH 25.9 pg (25.7-33.7); MCHC 30.1 g/dl (32.0-36.0); MEAN CELL VOLUME 86.1 fl (80-96); MEAN PLT VOLUME 10.2 fl (7.5-11.1); NEUT % 79.4 % (42.8-82.8); PLATELET COUNT 183 10^3/uL (134-434); RBC 2.83 M/mm3 (3.60-5.2); RDW 18.3 % (11.6-15.6); WHITE BLOOD COUNT 6.5 K/mm3 (4.0-10.0)
[2022-05-19 08:33] LABS: CALCIUM 8.1 mg/dL (8.5-10.1)
[2022-05-19 08:34] LABS: ALBUMIN 2.3 g/dl (3.4-5.0); BLOOD UREA NITROGEN 49.8 mg/dL (7-18); MAGNESIUM 1.8 mg/dL (1.8-2.4)
[2022-05-19 08:37] LABS: CREATININE 0.8 mg/dL (0.55-1.3); PHOSPHOROUS 3.4 mg/dL (2.5-4.9)
[2022-05-19 08:38] LABS: BILIRUBIN,TOTAL 0.6 mg/dL (0.2-1); TOT PROT 6.2 g/dl (6.4-8.2)
[2022-05-19] MEDS: PANTOPRAZOLE SODIUM 40 MG VIAL IVPUSH SCH (09:42)
[2022-05-19] MEDS: ENOXAPARIN NA (PORCINE) 100 MG/1 ML DISP.SYRIN SQ SCH ×2 (09:43→21:00)
[2022-05-19] MEDS: POLYETHYLENE GLYCOL (HEALTHYLAX) 3350 17 GM PACKET PO SCH ×2 (09:43→22:21)
[2022-05-19] MEDS: LACTOBACILLUS ACIDOPHILUS 1 TABLET PO SCH (09:43)
[2022-05-19] MEDS: FUROSEMIDE 40 MG/4 ML INJECTABLE VIAL IVPUSH SCH (09:43)
[2022-05-19] MEDS: AMINO ACIDS/PROTEIN HYDROLYS 30 ML LIQUID.PKT PO SCH ×2 (09:43→17:38)
[2022-05-19] MEDS ORDERED: FUROSEMIDE 40 MG/4 ML INJECTABLE VIAL IVPUSH SCH (10:26)
[2022-05-19] MEDS ORDERED: MILRINONE 20MG/100ML IVPB - 20,000 MCG/100 ML ML IVPB SCH (10:30)
[2022-05-19] MEDS ORDERED: ACETAMINOPHEN 1000 MG/100 ML BAG IVPB ONE (16:24)
[2022-05-19] MEDS: FUROSEMIDE INJECTION 100 MG in SODIUM CHLORIDE 40 ML IVPB SCH (16:29)
[2022-05-19] MEDS ORDERED: VANCOMYCIN 1 GM/200 ML PREMIX BAG (RESTRICTED TO ID ONLY) IVPB ONE (17:00)
[2022-05-19] MEDS: CHLORHEXIDINE GLUCONATE 4% CLEANSER FOR DECOLONIZATION TP SCH (22:21)
[2022-05-19] MEDS: FAT EMUL/SOY/MCT/OLIV/FISH OIL 250 ML IV SCH (23:32)
[2022-05-19] MEDS: MULTIVIT INJ. ADULT COMBO WITH VIT K 1 COMBO 10 ML VIAL IV SCH (23:32)
[2022-05-19] MEDS: MILRINONE 20MG/100ML IVPB - 20,000 MCG/100 ML ML IVPB SCH (23:47)
[2022-05-20] MEDS: METOPROLOL TARTRATE 5 MG/5 ML VIAL IVPUSH SCH ×4 (01:05→19:26)
[2022-05-20] MEDS: MILRINONE 20MG/100ML IVPB - 20,000 MCG/100 ML ML IVPB SCH ×3 (06:37→15:10)
[2022-05-20 07:49] LABS: HEMATOCRIT 22.8 % (32.4-45.2); MCH 26.2 pg (25.7-33.7); MCHC 30.8 g/dl (32.0-36.0); MEAN CELL VOLUME 85.3 fl (80-96); MEAN PLT VOLUME 10.1 fl (7.5-11.1); PLATELET COUNT 194 10^3/uL (134-434); RBC 2.68 M/mm3 (3.60-5.2); WHITE BLOOD COUNT 6.7 K/mm3 (4.0-10.0)
[2022-05-20] MEDS: AMINO ACIDS/PROTEIN HYDROLYS 30 ML LIQUID.PKT PO SCH ×2 (07:50→16:59)
[2022-05-20] MEDS: ENOXAPARIN NA (PORCINE) 100 MG/1 ML DISP.SYRIN SQ SCH ×2 (07:52→21:20)
[2022-05-20] MEDS ORDERED: METOPROLOL TARTRATE 5 MG/5 ML VIAL IVPUSH ONE (08:45)
[2022-05-20] MEDS: FUROSEMIDE INJECTION 100 MG in SODIUM CHLORIDE 40 ML IVPB SCH ×2 (08:56→15:10)
[2022-05-20] MEDS: LACTOBACILLUS ACIDOPHILUS 1 TABLET PO SCH (09:20)
[2022-05-20] MEDS: POLYETHYLENE GLYCOL (HEALTHYLAX) 3350 17 GM PACKET PO SCH ×2 (09:20→21:20)
[2022-05-20 09:23] LABS: ALBUMIN 2.1 g/dl (3.4-5.0); BILIRUBIN,TOTAL 0.7 mg/dL (0.2-1); BLOOD UREA NITROGEN 59.9 mg/dL (7-18); CALCIUM 8.3 mg/dL (8.5-10.1); MAGNESIUM 1.6 mg/dL (1.8-2.4); PHOSPHOROUS 2.9 mg/dL (2.5-4.9); TOT PROT 5.9 g/dl (6.4-8.2)
[2022-05-20] MEDS: PANTOPRAZOLE SODIUM 40 MG VIAL IVPUSH SCH (09:23)
[2022-05-20] MEDS ORDERED: MAGNESIUM SULF 50% (8.12 MEQ/2 ML-1 GM VIAL) IVPB ONE (09:27)
[2022-05-20] MEDS ORDERED: VANCOMYCIN 1 GM/200 ML PREMIX BAG (RESTRICTED TO ID ONLY) IVPB ONE (09:47)
[2022-05-20] MEDS: POTASSIUM CHLORIDE 40 MEQ in AMINO ACIDS 4.25%/D5W 1,000 ML IV SCH (13:25)
[2022-05-20] MEDS: MULTIVIT INJ. ADULT COMBO WITH VIT K 1 COMBO 10 ML VIAL IV SCH (14:26)
[2022-05-20] MEDS ORDERED: dilTIAZem HCL 50 MG/10 ML - 10 ML VIAL IVPUSH ONE (18:40)
[2022-05-20] MEDS ORDERED: dilTIAZem HCL 125 MG/25 ML - 25 ML VIAL ONE (18:43)
[2022-05-20] MEDS ORDERED: ACETAMINOPHEN 1000 MG/100 ML BAG IVPB ONE (18:58)
[2022-05-20] MEDS ORDERED: ACETAMINOPHEN 1000 MG/100 ML BAG IVPB PRN (19:36)
[2022-05-20] MEDS: CHLORHEXIDINE GLUCONATE 4% CLEANSER FOR DECOLONIZATION TP SCH (21:20)
[2022-05-21] MEDS: METOPROLOL TARTRATE 5 MG/5 ML VIAL IVPUSH SCH ×4 (01:24→18:53)
[2022-05-21] MEDS: FUROSEMIDE INJECTION 100 MG in SODIUM CHLORIDE 40 ML IVPB SCH ×2 (03:15→13:34)
[2022-05-21 07:34] LABS: HEMATOCRIT 23.9 % (32.4-45.2); HEMOGLOBIN 7.5 GM/dL (10.7-15.3); MCH 26.7 pg (25.7-33.7); MCHC 31.3 g/dl (32.0-36.0); MEAN CELL VOLUME 85.1 fl (80-96); MEAN PLT VOLUME 10.3 fl (7.5-11.1); PLATELET COUNT 203 10^3/uL (134-434); RBC 2.81 M/mm3 (3.60-5.2); RDW 18.9 % (11.6-15.6); WHITE BLOOD COUNT 5.6 K/mm3 (4.0-10.0)
[2022-05-21 08:05] LABS: CALCIUM 8.4 mg/dL (8.5-10.1)
[2022-05-21 08:06] LABS: ALBUMIN 2.1 g/dl (3.4-5.0); MAGNESIUM 1.9 mg/dL (1.8-2.4)
[2022-05-21 08:09] LABS: CREATININE 1.1 mg/dL (0.55-1.3)
[2022-05-21 08:10] LABS: BILIRUBIN,TOTAL 0.7 mg/dL (0.2-1); TOT PROT 6.2 g/dl (6.4-8.2)
[2022-05-21] MEDS: AMINO ACIDS/PROTEIN HYDROLYS 30 ML LIQUID.PKT PO SCH ×2 (08:13→16:59)
[2022-05-21] MEDS: ENOXAPARIN NA (PORCINE) 100 MG/1 ML DISP.SYRIN SQ SCH ×2 (08:15→20:53)
[2022-05-21 08:59] LABS: BLOOD UREA NITROGEN 59.3 mg/dL (7-18); PHOSPHOROUS 3.1 mg/dL (2.5-4.9)
[2022-05-21] MEDS: LACTOBACILLUS ACIDOPHILUS 1 TABLET PO SCH (09:09)
[2022-05-21] MEDS: POLYETHYLENE GLYCOL (HEALTHYLAX) 3350 17 GM PACKET PO SCH ×2 (09:09→21:10)
[2022-05-21] MEDS: PANTOPRAZOLE SODIUM 40 MG VIAL IVPUSH SCH (09:21)
[2022-05-21] MEDS: MULTIVIT INJ. ADULT COMBO WITH VIT K 1 COMBO 10 ML VIAL IV SCH (14:35)
[2022-05-21] MEDS ORDERED: MIDAZOLAM HCL 2 MG/2 ML SINGLE DOSE VIAL IVPUSH ONE (14:51)
[2022-05-21] MEDS: dilTIAZem HCL 50 MG/10 ML - 10 ML VIAL IVPUSH PRN (17:52)
[2022-05-21] MEDS: CHLORHEXIDINE GLUCONATE 4% CLEANSER FOR DECOLONIZATION TP SCH (21:10)
[2022-05-22] MEDS: METOPROLOL TARTRATE 5 MG/5 ML VIAL IVPUSH SCH ×4 (01:27→18:17)
[2022-05-22 08:38] LABS: HEMATOCRIT 24.2 % (32.4-45.2); HEMOGLOBIN 7.3 GM/dL (10.7-15.3); MCH 26.2 pg (25.7-33.7); MEAN CELL VOLUME 87.3 fl (80-96); MEAN PLT VOLUME 10.1 fl (7.5-11.1); PLATELET COUNT 200 10^3/uL (134-434); RBC 2.77 M/mm3 (3.60-5.2); RDW 19.5 % (11.6-15.6); WHITE BLOOD COUNT 4.8 K/mm3 (4.0-10.0)
[2022-05-22] MEDS: ENOXAPARIN NA (PORCINE) 100 MG/1 ML DISP.SYRIN SQ SCH ×2 (08:47→19:40)
[2022-05-22] MEDS: AMINO ACIDS/PROTEIN HYDROLYS 30 ML LIQUID.PKT PO SCH ×2 (08:48→16:58)
[2022-05-22] MEDS: POLYETHYLENE GLYCOL (HEALTHYLAX) 3350 17 GM PACKET PO SCH ×2 (09:00→22:10)
[2022-05-22] MEDS: LACTOBACILLUS ACIDOPHILUS 1 TABLET PO SCH (09:00)
[2022-05-22] MEDS: PANTOPRAZOLE SODIUM 40 MG VIAL IVPUSH SCH (09:00)
[2022-05-22 09:16] LABS: BLOOD UREA NITROGEN 61.3 mg/dL (7-18)
[2022-05-22 09:18] LABS: ALBUMIN 2.2 g/dl (3.4-5.0)
[2022-05-22 09:19] LABS: BILIRUBIN,TOTAL 0.5 mg/dL (0.2-1); TOT PROT 6.2 g/dl (6.4-8.2)
[2022-05-22 09:20] LABS: CALCIUM 8.4 mg/dL (8.5-10.1); MAGNESIUM 1.9 mg/dL (1.8-2.4); PHOSPHOROUS 3.8 mg/dL (2.5-4.9)
[2022-05-22 09:21] LABS: CREATININE 1.1 mg/dL (0.55-1.3)
[2022-05-22] MEDS: AMINO ACIDS 4.25%/D5W 1,000 ML IV SCH (15:00)
[2022-05-22] MEDS: DEXTROSE 5%-WATER - 1,000 ML IV SCH (15:13)
[2022-05-22] MEDS: FUROSEMIDE INJECTION 100 MG in SODIUM CHLORIDE 40 ML IVPB SCH (15:13)
[2022-05-22] MEDS: MULTIVIT INJ. ADULT COMBO WITH VIT K 1 COMBO 10 ML VIAL IV SCH (15:14)
[2022-05-22] MEDS: VANCOMYCIN 1 GM in D5W (PRE-DOCKED) 1,000 MG/250 ML IVPB SCH (17:49)
[2022-05-22] MEDS ORDERED: ACETAMINOPHEN 1000 MG/100 ML BAG IVPB ONE (19:23)
[2022-05-22] MEDS: FAT EMUL/SOY/MCT/OLIV/FISH OIL 250 ML IV SCH (21:58)
[2022-05-22] MEDS ORDERED: FAT EMULSION/OLIVE/SOY (CLINOLIPID) 250 ML EMULSION IV SCH (22:00)
[2022-05-22] MEDS: CHLORHEXIDINE GLUCONATE 4% CLEANSER FOR DECOLONIZATION TP SCH (22:10)
[2022-05-23] MEDS: METOPROLOL TARTRATE 5 MG/5 ML VIAL IVPUSH SCH ×4 (00:50→19:38)
[2022-05-23 07:37] LABS: HEMOGLOBIN 7.3 GM/dL (10.7-15.3); MCH 26.4 pg (25.7-33.7); MCHC 30.3 g/dl (32.0-36.0); MEAN CELL VOLUME 87.2 fl (80-96); MEAN PLT VOLUME 10.1 fl (7.5-11.1); PLATELET COUNT 204 10^3/uL (134-434); RBC 2.75 M/mm3 (3.60-5.2); RDW 19.5 % (11.6-15.6); WHITE BLOOD COUNT 4.1 K/mm3 (4.0-10.0)
[2022-05-23 08:01] LABS: BLOOD UREA NITROGEN 55.9 mg/dL (7-18); MAGNESIUM 1.7 mg/dL (1.8-2.4)
[2022-05-23 08:04] LABS: CREATININE 1.1 mg/dL (0.55-1.3); PHOSPHOROUS 2.4 mg/dL (2.5-4.9)
[2022-05-23 08:05] LABS: BILIRUBIN,TOTAL 0.4 mg/dL (0.2-1); TOT PROT 5.9 g/dl (6.4-8.2)
[2022-05-23] MEDS ORDERED: MAGNESIUM 1GM/D5W - 1 GM/100 ML IVPB IVPB ONE (08:15)
[2022-05-23] MEDS: ENOXAPARIN NA (PORCINE) 100 MG/1 ML DISP.SYRIN SQ SCH ×2 (08:20→20:10)
[2022-05-23] MEDS: AMINO ACIDS/PROTEIN HYDROLYS 30 ML LIQUID.PKT PO SCH ×2 (08:20→16:58)
[2022-05-23] MEDS: DEXTROSE 5%-WATER - 1,000 ML IV SCH (08:46)
[2022-05-23] MEDS: LACTOBACILLUS ACIDOPHILUS 1 TABLET PO SCH (09:24)
[2022-05-23] MEDS: POLYETHYLENE GLYCOL (HEALTHYLAX) 3350 17 GM PACKET PO SCH ×2 (09:25→22:19)
[2022-05-23] MEDS: POTASSIUM CHLORIDE 20 MEQ PREMIX IVPB 100 ML IVPB SCH ×3 (09:44→12:00)
[2022-05-23] MEDS: PANTOPRAZOLE SODIUM 40 MG VIAL IVPUSH SCH (09:44)
[2022-05-23] MEDS: LYTES/YERBA SANTA 60 ML SPRAY MM SCH ×2 (11:54→17:15)
[2022-05-23] MEDS: dilTIAZem HCL 50 MG/10 ML - 10 ML VIAL IVPUSH PRN (12:55)
[2022-05-23] MEDS: FUROSEMIDE INJECTION 100 MG in SODIUM CHLORIDE 40 ML IVPB SCH ×2 (13:15→15:15)
[2022-05-23] MEDS: AMINO ACIDS 4.25%/D5W 1,000 ML IV SCH ×2 (13:15→15:00)
[2022-05-23] MEDS: POTASSIUM CHLORIDE 20 MEQ in DEXTROSE 5%-WATER - 1,000 ML IV SCH (14:10)
[2022-05-23] MEDS: MULTIVIT INJ. ADULT COMBO WITH VIT K 1 COMBO 10 ML VIAL IV SCH (15:11)
[2022-05-23] MEDS ORDERED: ACETAMINOPHEN 1000 MG/100 ML BAG IVPB ONE (19:03)
[2022-05-23] MEDS: FAT EMUL/SOY/MCT/OLIV/FISH OIL 250 ML IV SCH (22:19)
[2022-05-23] MEDS: CHLORHEXIDINE GLUCONATE 4% CLEANSER FOR DECOLONIZATION TP SCH (22:19)
[2022-05-24] MEDS: METOPROLOL TARTRATE 5 MG/5 ML VIAL IVPUSH SCH ×4 (01:17→22:07)
[2022-05-24] MEDS: LYTES/YERBA SANTA 60 ML SPRAY MM SCH ×4 (01:19→18:00)
[2022-05-24 07:23] LABS: HEMATOCRIT 24.5 % (32.4-45.2); HEMOGLOBIN 7.5 GM/dL (10.7-15.3); MCH 26.7 pg (25.7-33.7); MCHC 30.6 g/dl (32.0-36.0); MEAN CELL VOLUME 87.5 fl (80-96); MEAN PLT VOLUME 9.8 fl (7.5-11.1); PLATELET COUNT 186 10^3/uL (134-434); RDW 19.9 % (11.6-15.6); WHITE BLOOD COUNT 4.5 K/mm3 (4.0-10.0)
[2022-05-24 07:53] LABS: CALCIUM 8.2 mg/dL (8.5-10.1); MAGNESIUM 1.8 mg/dL (1.8-2.4)
[2022-05-24 07:54] LABS: ALBUMIN 2.1 g/dl (3.4-5.0)
[2022-05-24 07:56] LABS: CREATININE 1.1 mg/dL (0.55-1.3); PHOSPHOROUS 2.1 mg/dL (2.5-4.9)
[2022-05-24 07:58] LABS: BILIRUBIN,TOTAL 0.5 mg/dL (0.2-1); TOT PROT 6.1 g/dl (6.4-8.2)
[2022-05-24] MEDS: AMINO ACIDS/PROTEIN HYDROLYS 30 ML LIQUID.PKT PO SCH ×2 (08:08→17:30)
[2022-05-24] MEDS: POTASSIUM CHLORIDE 20 MEQ in DEXTROSE 5%-WATER - 1,000 ML IV SCH (09:15)
[2022-05-24] MEDS: POLYETHYLENE GLYCOL (HEALTHYLAX) 3350 17 GM PACKET PO SCH ×2 (09:16→22:06)
[2022-05-24] MEDS: LACTOBACILLUS ACIDOPHILUS 1 TABLET PO SCH (09:16)
[2022-05-24] MEDS: PANTOPRAZOLE SODIUM 40 MG VIAL IVPUSH SCH (10:03)
[2022-05-24] MEDS: AMINO ACIDS 4.25%/D5W 1,000 ML IV SCH (13:41)
[2022-05-24] MEDS: MULTIVIT INJ. ADULT COMBO WITH VIT K 1 COMBO 10 ML VIAL IV SCH (13:41)
[2022-05-24] MEDS: FUROSEMIDE INJECTION 100 MG in SODIUM CHLORIDE 40 ML IVPB SCH (13:42)
[2022-05-24] MEDS: ENOXAPARIN NA (PORCINE) 100 MG/1 ML DISP.SYRIN SQ SCH (17:22)
[2022-05-24] MEDS: CHLORHEXIDINE GLUCONATE 4% CLEANSER FOR DECOLONIZATION TP SCH (22:06)
[2022-05-24] MEDS: FAT EMUL/SOY/MCT/OLIV/FISH OIL 250 ML IV SCH (22:06)
[2022-05-25] MEDS: LYTES/YERBA SANTA 60 ML SPRAY MM SCH ×4 (00:02→18:26)
[2022-05-25] MEDS: METOPROLOL TARTRATE 5 MG/5 ML VIAL IVPUSH SCH ×4 (01:03→20:43)
[2022-05-25] MEDS: POTASSIUM CHLORIDE 20 MEQ in DEXTROSE 5%-WATER - 1,000 ML IV SCH (05:43)
[2022-05-25] MEDS: ENOXAPARIN NA (PORCINE) 100 MG/1 ML DISP.SYRIN SQ SCH (05:48)
[2022-05-25 07:39] LABS: BASO % 0.3 % (0-2.0); EOS % 4.2 % (0-4.5); HEMATOCRIT 25.5 % (32.4-45.2); HEMOGLOBIN 7.7 GM/dL (10.7-15.3); LYMPH % 20.5 % (8-40); MCH 26.4 pg (25.7-33.7); MONO % 4.6 % (3.8-10.2); NEUT % 70.4 % (42.8-82.8); PLATELET COUNT 188 10^3/uL (134-434); RDW 20.3 % (11.6-15.6)
[2022-05-25 08:00] LABS: BLOOD UREA NITROGEN 47.1 mg/dL (7-18)
[2022-05-25 08:01] LABS: MAGNESIUM 1.6 mg/dL (1.8-2.4)
[2022-05-25 08:03] LABS: PHOSPHOROUS 1.7 mg/dL (2.5-4.9)
[2022-05-25 08:05] LABS: BILIRUBIN,TOTAL 0.6 mg/dL (0.2-1); TOT PROT 6.2 g/dl (6.4-8.2)
[2022-05-25] MEDS: AMINO ACIDS/PROTEIN HYDROLYS 30 ML LIQUID.PKT PO SCH ×2 (10:01→17:54)
[2022-05-25] MEDS: LACTOBACILLUS ACIDOPHILUS 1 TABLET PO SCH (10:01)
[2022-05-25] MEDS: PANTOPRAZOLE SODIUM 40 MG VIAL IVPUSH SCH (10:02)
[2022-05-25] MEDS: POLYETHYLENE GLYCOL (HEALTHYLAX) 3350 17 GM PACKET PO SCH ×2 (10:12→21:05)
[2022-05-25] MEDS ORDERED: MAGNESIUM 1GM/D5W 100ML - 100 ML IVPB IVPB ONE ×2 (11:45→13:30)
[2022-05-25] MEDS ORDERED: NAPH,MB-DB/K PH,MBDB POWDER PACKET PO ONE ×2 (11:45)
[2022-05-25] MEDS ORDERED: RAPID SEQUENCE INTUBATION KIT NR ONE (12:31)
[2022-05-25] MEDS ORDERED: ETOMIDATE 20 MG/10 ML VIAL IVPUSH ONE (12:44)
[2022-05-25] MEDS ORDERED: PROPOFOL 1,000,000 MCG/100 ML VIAL ONE (13:04)
[2022-05-25] MEDS ORDERED: ETOMIDATE 40 MG/20 ML VIAL IVPUSH ONE (13:30)
[2022-05-25] MEDS ORDERED: ROCURONIUM BROMIDE 50 MG/5 ML VIAL IV ONE (13:30)
[2022-05-25] MEDS: FUROSEMIDE INJECTION 100 MG in SODIUM CHLORIDE 40 ML IVPB SCH (13:35)
[2022-05-25] MEDS: PROPOFOL 1,000,000 MCG/100 ML VIAL IVPB SCH ×2 (13:54→21:05)
[2022-05-25] MEDS: AMINO ACIDS 4.25%/D5W 1,000 ML IV SCH (14:03)
[2022-05-25] MEDS: THIAMINE HCL 200 MG/2 ML VIAL IVPB SCH (14:04)
[2022-05-25] MEDS ORDERED: POTASSIUM PHOSPHATE 30 MM in DEXTROSE 5%-WATER - 250 ML IVPB ONE (14:30)
[2022-05-25 16:15] LABS: INR 1.58 (0.83-1.09); PROTHROMBIN TIME (PATIENT) 18.2 SEC (9.7-13.0)
[2022-05-25 16:18] LABS: ACTIVATED PTT 36.5 SECONDS (25.2-36.5)
[2022-05-25] MEDS: MULTIVIT INJ. ADULT COMBO WITH VIT K 1 COMBO 10 ML VIAL IV SCH (17:54)
[2022-05-25 19:14] LABS: ARTERIAL BLOOD GAS BASE EXCESS 4.3 mmol/L (-2-2); ARTERIAL BLOOD GAS PO2 88.2 mmHg (80-100); ARTERIAL BLOOD GAS pH 7.438 (7.350-7.450)
[2022-05-25 19:15] LABS: ALLENS TEST POSITIVE
[2022-05-25 19:16] LABS: VENT RATE 12
[2022-05-25] MEDS: CHLORHEXIDINE GLUCONATE 4% CLEANSER FOR DECOLONIZATION TP SCH (21:05)
[2022-05-26] MEDS: LYTES/YERBA SANTA 60 ML SPRAY MM SCH ×4 (00:44→17:49)
[2022-05-26] MEDS: METOPROLOL TARTRATE 5 MG/5 ML VIAL IVPUSH SCH ×4 (01:16→19:45)
[2022-05-26] MEDS: POTASSIUM CHLORIDE 20 MEQ in DEXTROSE 5%-WATER - 1,000 ML IV SCH ×2 (04:22→21:25)
[2022-05-26] MEDS: PROPOFOL 1,000,000 MCG/100 ML VIAL IVPB SCH ×2 (05:26→14:03)
[2022-05-26 07:27] LABS: BASO % 0.5 % (0-2.0); EOS % 2.9 % (0-4.5); HEMATOCRIT 25.6 % (32.4-45.2); HEMOGLOBIN 7.8 GM/dL (10.7-15.3); LYMPH % 28.1 % (8-40); MCH 26.5 pg (25.7-33.7); MCHC 30.6 g/dl (32.0-36.0); MEAN CELL VOLUME 86.8 fl (80-96); MEAN PLT VOLUME 9.9 fl (7.5-11.1); MONO % 4.6 % (3.8-10.2); NEUT % 63.9 % (42.8-82.8); PLATELET COUNT 178 10^3/uL (134-434); RBC 2.95 M/mm3 (3.60-5.2); RDW 19.8 % (11.6-15.6); WHITE BLOOD COUNT 5.6 K/mm3 (4.0-10.0)
[2022-05-26 07:56] LABS: CALCIUM 7.9 mg/dL (8.5-10.1)
[2022-05-26 07:57] LABS: BLOOD UREA NITROGEN 42.8 mg/dL (7-18); MAGNESIUM 1.8 mg/dL (1.8-2.4)
[2022-05-26 08:00] LABS: CREATININE 1.1 mg/dL (0.55-1.3); PHOSPHOROUS 2.4 mg/dL (2.5-4.9)
[2022-05-26 08:01] LABS: TOT PROT 5.9 g/dl (6.4-8.2)
[2022-05-26 08:32] LABS: BILIRUBIN,TOTAL 0.4 mg/dL (0.2-1)
[2022-05-26] MEDS ORDERED: AMPICILLIN NA/SULBACTAM NA 1.5 GM in SODIUM CHLORIDE 100 ML IVPB SCH (09:00)
[2022-05-26] MEDS ORDERED: ROCURONIUM BROMIDE 50 MG/5 ML VIAL IV ONE (09:30)
[2022-05-26] MEDS: PANTOPRAZOLE SODIUM 40 MG VIAL IVPUSH SCH (09:32)
[2022-05-26] MEDS: THIAMINE HCL 200 MG/2 ML VIAL IVPB SCH (09:32)
[2022-05-26] MEDS: AMINO ACIDS/PROTEIN HYDROLYS 30 ML LIQUID.PKT PO SCH ×2 (09:33→17:40)
[2022-05-26] MEDS: POLYETHYLENE GLYCOL (HEALTHYLAX) 3350 17 GM PACKET PO SCH ×2 (09:34→22:47)
[2022-05-26] MEDS: LACTOBACILLUS ACIDOPHILUS 1 TABLET PO SCH (09:34)
[2022-05-26] MEDS ORDERED: fentaNYL CITRATE 250 MCG/5 ML VIAL ONE (09:46)
[2022-05-26] MEDS: AMPICILLIN NA/SULBACTAM NA 1.5 GM in SODIUM CHLORIDE 100 ML IVPB SCH ×2 (09:47→17:40)
[2022-05-26] MEDS ORDERED: POTASSIUM PHOSPHATE 30 MM in DEXTROSE 5%-WATER - 250 ML IVPB ONE (10:30)
[2022-05-26] MEDS ORDERED: AMPICILLIN NA/SULBACTAM NA 1.5 GM VIAL ONE (13:42)
[2022-05-26] MEDS: FUROSEMIDE 40 MG/4 ML INJECTABLE VIAL IVPUSH SCH (14:02)
[2022-05-26] MEDS: VANCOMYCIN 250 MG/5 ML ORAL SOLUTION PO SCH (17:40)
[2022-05-26] MEDS: CHLORHEXIDINE GLUCONATE 4% CLEANSER FOR DECOLONIZATION TP SCH (23:08)
[2022-05-27] MEDS: VANCOMYCIN 250 MG/5 ML ORAL SOLUTION PO SCH ×4 (01:05→18:27)
[2022-05-27] MEDS: LYTES/YERBA SANTA 60 ML SPRAY MM SCH ×4 (01:05→18:27)
[2022-05-27] MEDS: METOPROLOL TARTRATE 5 MG/5 ML VIAL IVPUSH SCH ×2 (02:06→06:20)
[2022-05-27] MEDS: PROPOFOL 1,000,000 MCG/100 ML VIAL IVPB SCH (02:12)
[2022-05-27] MEDS: FUROSEMIDE 40 MG/4 ML INJECTABLE VIAL IVPUSH SCH (06:20)
[2022-05-27 07:59] LABS: BASO % 0.5 % (0-2.0); HEMATOCRIT 25.8 % (32.4-45.2); LYMPH % 22.7 % (8-40); MCH 26.6 pg (25.7-33.7); MEAN CELL VOLUME 85.7 fl (80-96); MEAN PLT VOLUME 9.5 fl (7.5-11.1); MONO % 5.3 % (3.8-10.2); NEUT % 66.5 % (42.8-82.8); PLATELET COUNT 175 10^3/uL (134-434); RDW 20.6 % (11.6-15.6); WHITE BLOOD COUNT 4.7 K/mm3 (4.0-10.0)
[2022-05-27 08:05] LABS: CALCIUM 7.4 mg/dL (8.5-10.1)
[2022-05-27 08:06] LABS: ALBUMIN 1.9 g/dl (3.4-5.0); BLOOD UREA NITROGEN 38.3 mg/dL (7-18); MAGNESIUM 1.6 mg/dL (1.8-2.4)
[2022-05-27 08:09] LABS: CREATININE 1.1 mg/dL (0.55-1.3); PHOSPHOROUS 3.6 mg/dL (2.5-4.9)
[2022-05-27 08:10] LABS: TOT PROT 5.9 g/dl (6.4-8.2)
[2022-05-27 08:32] LABS: BILIRUBIN,TOTAL 0.4 mg/dL (0.2-1)
[2022-05-27 08:44] LABS: ANISOCYTOSIS 1+; MACROCYTOSIS 0
[2022-05-27] MEDS: AMINO ACIDS/PROTEIN HYDROLYS 30 ML LIQUID.PKT PO SCH ×2 (09:56→18:26)
[2022-05-27] MEDS: POLYETHYLENE GLYCOL (HEALTHYLAX) 3350 17 GM PACKET PO SCH ×2 (09:57→21:28)
[2022-05-27] MEDS: THIAMINE HCL 200 MG/2 ML VIAL IVPB SCH (09:57)
[2022-05-27] MEDS: LACTOBACILLUS ACIDOPHILUS 1 TABLET PO SCH (09:57)
[2022-05-27] MEDS: PANTOPRAZOLE SODIUM 40 MG VIAL IVPUSH SCH (09:57)
[2022-05-27] MEDS ORDERED: METOPROLOL TARTRATE 5 MG/5 ML VIAL IVPUSH PRN (11:35)
[2022-05-27] MEDS: METOPROLOL TARTRATE 25 MG TABLET (FP) NGT SCH ×2 (14:56→21:28)
[2022-05-27] MEDS: ENOXAPARIN NA (PORCINE) 100 MG/1 ML DISP.SYRIN SQ SCH (18:26)
[2022-05-27] MEDS: MULTIVIT INJ. ADULT COMBO WITH VIT K 1 COMBO 10 ML VIAL IV SCH ×2 (18:29→18:30)
[2022-05-27] MEDS: CHLORHEXIDINE GLUCONATE 4% CLEANSER FOR DECOLONIZATION TP SCH (21:28)
[2022-05-28] MEDS: LYTES/YERBA SANTA 60 ML SPRAY MM SCH ×4 (00:19→17:56)
[2022-05-28] MEDS: VANCOMYCIN 250 MG/5 ML ORAL SOLUTION PO SCH ×5 (00:19→18:42)
[2022-05-28] MEDS ORDERED: ONDANSETRON 4 MG/2 ML VIAL IVPUSH ONE (00:32)
[2022-05-28] MEDS: ENOXAPARIN NA (PORCINE) 100 MG/1 ML DISP.SYRIN SQ SCH ×2 (05:15→17:58)
[2022-05-28 08:36] LABS: BASO % 0.2 % (0-2.0); HEMATOCRIT 27.7 % (32.4-45.2); HEMOGLOBIN 8.5 GM/dL (10.7-15.3); LYMPH % 16.8 % (8-40); MCH 26.4 pg (25.7-33.7); MCHC 30.5 g/dl (32.0-36.0); MEAN CELL VOLUME 86.3 fl (80-96); MEAN PLT VOLUME 10.2 fl (7.5-11.1); MONO % 5.5 % (3.8-10.2); NEUT % 76.5 % (42.8-82.8); PLATELET COUNT 181 10^3/uL (134-434); RBC 3.21 M/mm3 (3.60-5.2); RDW 21.1 % (11.6-15.6); WHITE BLOOD COUNT 6.4 K/mm3 (4.0-10.0)
[2022-05-28 09:03] LABS: BLOOD UREA NITROGEN 33.4 mg/dL (7-18); CALCIUM 7.7 mg/dL (8.5-10.1); MAGNESIUM 1.9 mg/dL (1.8-2.4)
[2022-05-28 09:06] LABS: PHOSPHOROUS 2.8 mg/dL (2.5-4.9)
[2022-05-28 09:08] LABS: BILIRUBIN,TOTAL 0.5 mg/dL (0.2-1)
[2022-05-28] MEDS: THIAMINE HCL 200 MG/2 ML VIAL IVPB SCH (10:14)
[2022-05-28] MEDS: FUROSEMIDE 40 MG/4 ML INJECTABLE VIAL IVPUSH SCH (10:16)
[2022-05-28] MEDS: POLYETHYLENE GLYCOL (HEALTHYLAX) 3350 17 GM PACKET PO SCH ×2 (10:17→22:47)
[2022-05-28] MEDS: PANTOPRAZOLE SODIUM 40 MG VIAL IVPUSH SCH (10:18)
[2022-05-28] MEDS: MULTIVIT INJ. ADULT COMBO WITH VIT K 1 COMBO 10 ML VIAL IV SCH (17:56)
[2022-05-28] MEDS: METOPROLOL TARTRATE 25 MG TABLET (FP) NGT SCH ×2 (18:00→22:48)
[2022-05-28] MEDS: LACTOBACILLUS ACIDOPHILUS 1 TABLET PO SCH (18:00)
[2022-05-28] MEDS: AMINO ACIDS/PROTEIN HYDROLYS 30 ML LIQUID.PKT PO SCH ×2 (18:00→18:43)
[2022-05-28] MEDS: CHLORHEXIDINE GLUCONATE 4% CLEANSER FOR DECOLONIZATION TP SCH (22:47)
[2022-05-29] MEDS: LYTES/YERBA SANTA 60 ML SPRAY MM SCH ×5 (01:08→23:50)
[2022-05-29] MEDS: VANCOMYCIN 250 MG/5 ML ORAL SOLUTION PO SCH ×5 (01:08→23:51)
[2022-05-29] MEDS: ENOXAPARIN NA (PORCINE) 100 MG/1 ML DISP.SYRIN SQ SCH (05:01)
[2022-05-29] MEDS: AMINO ACIDS/PROTEIN HYDROLYS 30 ML LIQUID.PKT PO SCH ×2 (08:51→18:11)
[2022-05-29] MEDS ORDERED: KCL 10 MEQ IVPB 10 MEQ/100 ML INFUS.BAG IVPB SCH (09:15)
[2022-05-29] MEDS: FUROSEMIDE 40 MG/4 ML INJECTABLE VIAL IVPUSH SCH (09:31)
[2022-05-29] MEDS: METOPROLOL TARTRATE 25 MG TABLET (FP) NGT SCH (09:31)
[2022-05-29] MEDS: PANTOPRAZOLE SODIUM 40 MG VIAL IVPUSH SCH (09:31)
[2022-05-29] MEDS: THIAMINE HCL 200 MG/2 ML VIAL IVPB SCH (09:31)
[2022-05-29] MEDS: LACTOBACILLUS ACIDOPHILUS 1 TABLET PO SCH (09:31)
[2022-05-29] MEDS: POLYETHYLENE GLYCOL (HEALTHYLAX) 3350 17 GM PACKET PO SCH ×2 (09:31→21:27)
[2022-05-29] MEDS ORDERED: POTASSIUM CHLORIDE ORAL LIQUID 20 MEQ/15 ML PO ONE (10:00)
[2022-05-29] MEDS: APIXABAN 5 MG TABLET PO SCH ×2 (11:11→21:38)
[2022-05-29] MEDS: amLODIPine BESYLATE 10 MG TABLET (FP) NGT SCH (14:40)
[2022-05-29] MEDS: ALBUTEROL SO4 HFA INHALER IH SCH ×2 (19:39→20:26)
[2022-05-29] MEDS: SACUBITRIL/VALSARTAN 24 MG-26 MG TABLET PO SCH (21:38)
[2022-05-29] MEDS: CHLORHEXIDINE GLUCONATE 4% CLEANSER FOR DECOLONIZATION TP SCH (21:38)
[2022-05-29] MEDS: METOPROLOL TARTRATE 50 MG TABLET (FP) NGT SCH (21:38)
[2022-05-29] MEDS: ATORVASTATIN CA 20 MG TABLET (FP) NGT SCH (21:38)
[2022-05-30] MEDS: ALBUTEROL SO4 HFA INHALER IH SCH ×4 (04:01→19:55)
[2022-05-30] MEDS: VANCOMYCIN 250 MG/5 ML ORAL SOLUTION PO SCH ×3 (05:54→17:47)
[2022-05-30] MEDS: LYTES/YERBA SANTA 60 ML SPRAY MM SCH ×3 (05:54→17:47)
[2022-05-30 08:09] LABS: HEMATOCRIT 29.3 % (32.4-45.2); MCH 26.7 pg (25.7-33.7); MCHC 30.7 g/dl (32.0-36.0); MEAN PLT VOLUME 9.8 fl (7.5-11.1); PLATELET COUNT 238 10^3/uL (134-434); RBC 3.37 M/mm3 (3.60-5.2); WHITE BLOOD COUNT 4.7 K/mm3 (4.0-10.0)
[2022-05-30] MEDS: AMINO ACIDS/PROTEIN HYDROLYS 30 ML LIQUID.PKT PO SCH ×2 (08:17→17:46)
[2022-05-30 08:24] LABS: CALCIUM 8.1 mg/dL (8.5-10.1)
[2022-05-30 08:25] LABS: BLOOD UREA NITROGEN 34.2 mg/dL (7-18); MAGNESIUM 1.8 mg/dL (1.8-2.4)
[2022-05-30 08:27] LABS: CREATININE 0.9 mg/dL (0.55-1.3); PHOSPHOROUS 2.8 mg/dL (2.5-4.9)
[2022-05-30 08:29] LABS: BILIRUBIN,TOTAL 0.4 mg/dL (0.2-1); TOT PROT 6.1 g/dl (6.4-8.2)
[2022-05-30] MEDS ORDERED: POTASSIUM CHLORIDE ORAL LIQUID 20 MEQ/15 ML GT ONE (08:51)
[2022-05-30] MEDS: LACTOBACILLUS ACIDOPHILUS 1 TABLET PO SCH (09:35)
[2022-05-30] MEDS: METOPROLOL TARTRATE 50 MG TABLET (FP) NGT SCH ×2 (09:35→21:58)
[2022-05-30] MEDS: SACUBITRIL/VALSARTAN 24 MG-26 MG TABLET PO SCH ×2 (09:35→21:58)
[2022-05-30] MEDS: ENOXAPARIN NA (PORCINE) 100 MG/1 ML DISP.SYRIN SQ SCH ×2 (09:35→21:58)
[2022-05-30] MEDS: POLYETHYLENE GLYCOL (HEALTHYLAX) 3350 17 GM PACKET PO SCH ×2 (09:35→21:56)
[2022-05-30] MEDS: amLODIPine BESYLATE 10 MG TABLET (FP) NGT SCH (09:36)
[2022-05-30] MEDS: PANTOPRAZOLE SODIUM 40 MG VIAL IVPUSH SCH (09:36)
[2022-05-30] MEDS: THIAMINE HCL 200 MG/2 ML VIAL IVPB SCH (09:36)
[2022-05-30] MEDS ORDERED: LISINOPRIL 10 MG TABLET PO SCH (10:00)
[2022-05-30] MEDS ORDERED: LISINOPRIL 10 MG TABLET NGT SCH (10:00)
[2022-05-30] MEDS: FUROSEMIDE 40 MG/5 ML UNIT-DOSE CUP PO SCH (10:34)
[2022-05-30 17:23] LABS: BASO % 0.6 % (0-2.0); EOS % 3.3 % (0-4.5); HEMATOCRIT 27.2 % (32.4-45.2); HEMOGLOBIN 8.4 GM/dL (10.7-15.3); LYMPH % 29.3 % (8-40); MCH 26.9 pg (25.7-33.7); MEAN CELL VOLUME 86.8 fl (80-96); MEAN PLT VOLUME 10.2 fl (7.5-11.1); MONO % 7.8 % (3.8-10.2); PLATELET COUNT 230 10^3/uL (134-434); RBC 3.14 M/mm3 (3.60-5.2); RDW 21.2 % (11.6-15.6); WHITE BLOOD COUNT 4.9 K/mm3 (4.0-10.0)
[2022-05-30 18:18] LABS: BLOOD UREA NITROGEN 34.1 mg/dL (7-18)
[2022-05-30 19:57] LABS: ANISOCYTOSIS 2+; MACROCYTOSIS 0
[2022-05-30] MEDS: CHLORHEXIDINE GLUCONATE 4% CLEANSER FOR DECOLONIZATION TP SCH (21:58)
[2022-05-30] MEDS: ATORVASTATIN CA 20 MG TABLET (FP) NGT SCH (21:58)
[2022-05-30 22:05] LABS: MAGNESIUM 1.8 mg/dL (1.8-2.4)
[2022-05-31] MEDS: LYTES/YERBA SANTA 60 ML SPRAY MM SCH ×4 (00:15→18:01)
[2022-05-31] MEDS: ALBUTEROL SO4 HFA INHALER IH SCH ×4 (01:15→21:06)
[2022-05-31] MEDS: VANCOMYCIN 250 MG/5 ML ORAL SOLUTION PO SCH ×4 (05:10→18:01)
[2022-05-31 06:49] LABS: BASO % 0.4 % (0-2.0); EOS % 2.3 % (0-4.5); HEMATOCRIT 26.5 % (32.4-45.2); HEMOGLOBIN 8.3 GM/dL (10.7-15.3); LYMPH % 30.4 % (8-40); MCH 27.3 pg (25.7-33.7); MCHC 31.5 g/dl (32.0-36.0); MEAN CELL VOLUME 86.5 fl (80-96); MEAN PLT VOLUME 10.3 fl (7.5-11.1); MONO % 7.3 % (3.8-10.2); NEUT % 59.6 % (42.8-82.8); PLATELET COUNT 253 10^3/uL (134-434); RBC 3.06 M/mm3 (3.60-5.2); RDW 21.8 % (11.6-15.6); WHITE BLOOD COUNT 6.2 K/mm3 (4.0-10.0)
[2022-05-31 07:18] LABS: CALCIUM 8.1 mg/dL (8.5-10.1)
[2022-05-31 07:19] LABS: BLOOD UREA NITROGEN 33.3 mg/dL (7-18)
[2022-05-31] MEDS: FUROSEMIDE 40 MG/5 ML UNIT-DOSE CUP PO SCH (09:27)
[2022-05-31] MEDS: SACUBITRIL/VALSARTAN 24 MG-26 MG TABLET PO SCH (09:27)
[2022-05-31] MEDS: METOPROLOL TARTRATE 50 MG TABLET (FP) NGT SCH ×2 (09:27→21:13)
[2022-05-31] MEDS: LACTOBACILLUS ACIDOPHILUS 1 TABLET PO SCH (09:27)
[2022-05-31] MEDS: ENOXAPARIN NA (PORCINE) 100 MG/1 ML DISP.SYRIN SQ SCH ×2 (09:27→21:12)
[2022-05-31] MEDS: AMINO ACIDS/PROTEIN HYDROLYS 30 ML LIQUID.PKT PO SCH (09:27)
[2022-05-31] MEDS: POLYETHYLENE GLYCOL (HEALTHYLAX) 3350 17 GM PACKET PO SCH (09:27)
[2022-05-31] MEDS: PANTOPRAZOLE SODIUM 40 MG VIAL IVPUSH SCH (09:28)
[2022-05-31] MEDS: POTASSIUM CHLORIDE ORAL LIQUID 20 MEQ/15 ML GT SCH (09:28)
[2022-05-31 17:57] LABS: CALCIUM 7.9 mg/dL (8.5-10.1)
[2022-05-31 17:58] LABS: BLOOD UREA NITROGEN 33.2 mg/dL (7-18)
[2022-05-31] MEDS: AMINO ACIDS/PROTEIN HYDROLYS 30 ML LIQUID.PKT GT SCH (18:01)
[2022-05-31] MEDS: CHLORHEXIDINE GLUCONATE 4% CLEANSER FOR DECOLONIZATION TP SCH (21:06)
[2022-05-31] MEDS: POLYETHYLENE GLYCOL (HEALTHYLAX) 3350 17 GM PACKET GT SCH (21:12)
[2022-05-31] MEDS: SACUBITRIL/VALSARTAN 24 MG-26 MG TABLET PEG SCH (21:13)
[2022-05-31] MEDS: ATORVASTATIN CA 20 MG TABLET (FP) NGT SCH (21:13)
[2022-06-01] MEDS: LYTES/YERBA SANTA 60 ML SPRAY MM SCH ×5 (00:34→23:52)
[2022-06-01] MEDS: VANCOMYCIN 250 MG/5 ML ORAL SOLUTION PO SCH ×5 (00:35→23:52)
[2022-06-01] MEDS: ALBUTEROL SO4 HFA INHALER IH SCH ×4 (05:26→21:37)
[2022-06-01 06:44] LABS: HEMATOCRIT 28.8 % (32.4-45.2); HEMOGLOBIN 8.8 GM/dL (10.7-15.3); MCH 26.6 pg (25.7-33.7); MCHC 30.7 g/dl (32.0-36.0); MEAN CELL VOLUME 86.6 fl (80-96); MEAN PLT VOLUME 9.8 fl (7.5-11.1); PLATELET COUNT 243 10^3/uL (134-434); RBC 3.33 M/mm3 (3.60-5.2); RDW 21.9 % (11.6-15.6); WHITE BLOOD COUNT 5.1 K/mm3 (4.0-10.0)
[2022-06-01 06:54] LABS: CALCIUM 7.8 mg/dL (8.5-10.1)
[2022-06-01 06:55] LABS: ALBUMIN 1.8 g/dl (3.4-5.0); BLOOD UREA NITROGEN 35.4 mg/dL (7-18)
[2022-06-01 06:58] LABS: CREATININE 0.9 mg/dL (0.55-1.3); PHOSPHOROUS 2.4 mg/dL (2.5-4.9)
[2022-06-01 06:59] LABS: BILIRUBIN,TOTAL 0.3 mg/dL (0.2-1); TOT PROT 5.8 g/dl (6.4-8.2)
[2022-06-01] MEDS ORDERED: NAPH,MB-DB/K PH,MBDB POWDER PACKET PO ONE (07:38)
[2022-06-01] MEDS: AMINO ACIDS/PROTEIN HYDROLYS 30 ML LIQUID.PKT GT SCH ×2 (08:55→17:32)
[2022-06-01] MEDS: POLYETHYLENE GLYCOL (HEALTHYLAX) 3350 17 GM PACKET GT SCH ×2 (10:09→21:37)
[2022-06-01] MEDS: SACUBITRIL/VALSARTAN 24 MG-26 MG TABLET PEG SCH ×2 (10:09→21:37)
[2022-06-01] MEDS: FUROSEMIDE 40 MG/5 ML UNIT-DOSE CUP NGT SCH (10:09)
[2022-06-01] MEDS: LACTOBACILLUS ACIDOPHILUS 1 TABLET GT SCH (10:09)
[2022-06-01] MEDS: METOPROLOL TARTRATE 50 MG TABLET (FP) NGT SCH ×2 (10:10→21:38)
[2022-06-01] MEDS: PANTOPRAZOLE SODIUM 40 MG VIAL IVPUSH SCH (10:10)
[2022-06-01] MEDS ORDERED: LACTATED RINGERS SOLUTION 1000 ML INFUS.BAG IV ONE (10:10)
[2022-06-01] MEDS: ENOXAPARIN NA (PORCINE) 100 MG/1 ML DISP.SYRIN SQ SCH ×2 (10:10→21:38)
[2022-06-01] MEDS: POTASSIUM CHLORIDE ORAL LIQUID 20 MEQ/15 ML GT SCH (10:10)
[2022-06-01] MEDS: CHLORHEXIDINE GLUCONATE 4% CLEANSER FOR DECOLONIZATION TP SCH (21:37)
[2022-06-01] MEDS: ATORVASTATIN CA 20 MG TABLET (FP) NGT SCH (21:38)
[2022-06-02] MEDS: ALBUTEROL SO4 HFA INHALER IH SCH ×4 (01:58→19:50)
[2022-06-02] MEDS: LYTES/YERBA SANTA 60 ML SPRAY MM SCH ×3 (05:37→18:26)
[2022-06-02] MEDS: VANCOMYCIN 250 MG/5 ML ORAL SOLUTION PO SCH ×2 (05:38→14:00)
[2022-06-02 07:39] LABS: HEMATOCRIT 27.2 % (32.4-45.2); HEMOGLOBIN 8.3 GM/dL (10.7-15.3); MCH 26.6 pg (25.7-33.7); MCHC 30.4 g/dl (32.0-36.0); MEAN CELL VOLUME 87.3 fl (80-96); MEAN PLT VOLUME 10.2 fl (7.5-11.1); PLATELET COUNT 248 10^3/uL (134-434); RBC 3.11 M/mm3 (3.60-5.2); RDW 21.9 % (11.6-15.6); WHITE BLOOD COUNT 5.9 K/mm3 (4.0-10.0)
[2022-06-02 07:59] LABS: ALBUMIN 1.8 g/dl (3.4-5.0); BLOOD UREA NITROGEN 36.3 mg/dL (7-18); CALCIUM 7.7 mg/dL (8.5-10.1); MAGNESIUM 2.1 mg/dL (1.8-2.4)
[2022-06-02 08:02] LABS: CREATININE 0.9 mg/dL (0.55-1.3); PHOSPHOROUS 2.4 mg/dL (2.5-4.9)
[2022-06-02 08:03] LABS: TOT PROT 5.7 g/dl (6.4-8.2)
[2022-06-02 08:04] LABS: BILIRUBIN,TOTAL 0.3 mg/dL (0.2-1)
[2022-06-02] MEDS: AMINO ACIDS/PROTEIN HYDROLYS 30 ML LIQUID.PKT GT SCH ×2 (08:35→18:26)
[2022-06-02 09:41] LABS: ARTERIAL BLOOD GAS BASE EXCESS 6.2 mmol/L (-2-2); ARTERIAL BLOOD GAS PO2 145.3 mmHg (80-100); ARTERIAL BLOOD GAS pH 7.476 (7.350-7.450)
[2022-06-02 09:43] LABS: ALLENS TEST POSITIVE; VENT MODE A/C
[2022-06-02 09:44] LABS: VENT RATE 12
[2022-06-02] MEDS ORDERED: DEXTROSE 5%-WATER - 1,000 ML IV SCH (09:45)
[2022-06-02] MEDS: SACUBITRIL/VALSARTAN 24 MG-26 MG TABLET PEG SCH ×2 (10:34→22:15)
[2022-06-02] MEDS: POLYETHYLENE GLYCOL (HEALTHYLAX) 3350 17 GM PACKET GT SCH ×2 (10:34→22:15)
[2022-06-02] MEDS: ENOXAPARIN NA (PORCINE) 100 MG/1 ML DISP.SYRIN SQ SCH ×2 (10:35→22:14)
[2022-06-02] MEDS: PANTOPRAZOLE SODIUM 40 MG VIAL IVPUSH SCH (10:35)
[2022-06-02] MEDS: FUROSEMIDE 40 MG/5 ML UNIT-DOSE CUP NGT SCH (10:35)
[2022-06-02] MEDS: METOPROLOL TARTRATE 50 MG TABLET (FP) NGT SCH ×2 (10:35→22:15)
[2022-06-02] MEDS: POTASSIUM CHLORIDE ORAL LIQUID 20 MEQ/15 ML GT SCH (10:35)
[2022-06-02] MEDS ORDERED: LORazepam 2 MG/ML SDV VIAL IVPUSH ONE (11:16)
[2022-06-02] MEDS: LACTOBACILLUS ACIDOPHILUS 1 TABLET GT SCH (11:34)
[2022-06-02] MEDS ORDERED: SODIUM CHLORIDE 0.45% 1,000 ML IV SCH (12:45)
[2022-06-02] MEDS ORDERED: MELATONIN 5 MG TABLETS PO PRN (20:09)
[2022-06-02] MEDS: ATORVASTATIN CA 20 MG TABLET (FP) NGT SCH (22:14)
[2022-06-02] MEDS: NAPH,MB-DB/K PH,MBDB POWDER PACKET NGT SCH (22:14)
[2022-06-02] MEDS: CHLORHEXIDINE GLUCONATE 4% CLEANSER FOR DECOLONIZATION TP SCH (22:15)
[2022-06-03] MEDS: LYTES/YERBA SANTA 60 ML SPRAY MM SCH ×4 (00:37→17:25)
[2022-06-03] MEDS: ALBUTEROL SO4 HFA INHALER IH SCH ×3 (01:45→13:28)
[2022-06-03 07:36] LABS: HEMATOCRIT 24.1 % (32.4-45.2); HEMOGLOBIN 7.2 GM/dL (10.7-15.3); MCH 26.4 pg (25.7-33.7); MEAN CELL VOLUME 87.9 fl (80-96); MEAN PLT VOLUME 9.6 fl (7.5-11.1); PLATELET COUNT 232 10^3/uL (134-434); RBC 2.74 M/mm3 (3.60-5.2); RDW 22.7 % (11.6-15.6); WHITE BLOOD COUNT 4.4 K/mm3 (4.0-10.0)
[2022-06-03] MEDS: AMINO ACIDS/PROTEIN HYDROLYS 30 ML LIQUID.PKT GT SCH (08:01)
[2022-06-03 08:06] LABS: CALCIUM 7.3 mg/dL (8.5-10.1)
[2022-06-03 08:07] LABS: ALBUMIN 1.7 g/dl (3.4-5.0); BLOOD UREA NITROGEN 34.5 mg/dL (7-18); MAGNESIUM 1.9 mg/dL (1.8-2.4)
[2022-06-03 08:08] LABS: PHOSPHOROUS 2.8 mg/dL (2.5-4.9)
[2022-06-03 08:09] LABS: BILIRUBIN,TOTAL 0.3 mg/dL (0.2-1); TOT PROT 5.2 g/dl (6.4-8.2)
[2022-06-03 08:10] LABS: CREATININE 0.8 mg/dL (0.55-1.3)
[2022-06-03] MEDS: METOPROLOL TARTRATE 50 MG TABLET (FP) NGT SCH ×2 (11:00→23:16)
[2022-06-03] MEDS: SACUBITRIL/VALSARTAN 24 MG-26 MG TABLET PEG SCH ×2 (11:00→23:40)
[2022-06-03] MEDS: FUROSEMIDE 40 MG/5 ML UNIT-DOSE CUP NGT SCH (11:00)
[2022-06-03] MEDS: POLYETHYLENE GLYCOL (HEALTHYLAX) 3350 17 GM PACKET GT SCH ×2 (11:00→23:15)
[2022-06-03] MEDS: LACTOBACILLUS ACIDOPHILUS 1 TABLET GT SCH (11:00)
[2022-06-03] MEDS: ENOXAPARIN NA (PORCINE) 100 MG/1 ML DISP.SYRIN SQ SCH ×2 (11:00→23:15)
[2022-06-03] MEDS: POTASSIUM CHLORIDE ORAL LIQUID 20 MEQ/15 ML GT SCH (11:01)
[2022-06-03] MEDS: PANTOPRAZOLE SODIUM 40 MG VIAL IVPUSH SCH (11:01)
[2022-06-03] MEDS: NAPH,MB-DB/K PH,MBDB POWDER PACKET NGT SCH ×2 (11:01→23:15)
[2022-06-03] MEDS: VANCOMYCIN 250 MG/5 ML ORAL SOLUTION PO SCH ×2 (13:27→17:25)
[2022-06-03] MEDS: ATORVASTATIN CA 20 MG TABLET (FP) NGT SCH (23:16)
[2022-06-03] MEDS: CHLORHEXIDINE GLUCONATE 4% CLEANSER FOR DECOLONIZATION TP SCH (23:16)
[2022-06-04] MEDS: ALBUTEROL SO4 HFA INHALER IH SCH ×4 (01:01→13:45)
[2022-06-04] MEDS: LYTES/YERBA SANTA 60 ML SPRAY MM SCH ×3 (01:06→10:45)
[2022-06-04] MEDS: VANCOMYCIN 250 MG/5 ML ORAL SOLUTION PO SCH ×3 (01:06→10:00)
[2022-06-04] MEDS ORDERED: AMINO ACIDS/PROTEIN HYDROLYS 30 ML LIQUID.PKT GT SCH (08:00)
[2022-06-04] MEDS: NAPH,MB-DB/K PH,MBDB POWDER PACKET NGT SCH (10:00)
[2022-06-04] MEDS: POTASSIUM CHLORIDE ORAL LIQUID 20 MEQ/15 ML GT SCH (10:00)
[2022-06-04] MEDS: METOPROLOL TARTRATE 50 MG TABLET (FP) NGT SCH (10:00)
[2022-06-04] MEDS: SACUBITRIL/VALSARTAN 24 MG-26 MG TABLET PEG SCH (10:00)
[2022-06-04] MEDS: LACTOBACILLUS ACIDOPHILUS 1 TABLET GT SCH (10:00)
[2022-06-04] MEDS: FUROSEMIDE 40 MG/5 ML UNIT-DOSE CUP NGT SCH (10:00)
[2022-06-04] MEDS: POLYETHYLENE GLYCOL (HEALTHYLAX) 3350 17 GM PACKET GT SCH (10:00)
[2022-06-04] MEDS: ENOXAPARIN NA (PORCINE) 100 MG/1 ML DISP.SYRIN SQ SCH (10:45)
[2022-06-04] MEDS: PANTOPRAZOLE SODIUM 40 MG VIAL IVPUSH SCH (10:45)
[2022-06-04 13:09] LABS: HEMATOCRIT 27.2 % (32.4-45.2); HEMOGLOBIN 8.5 GM/dL (10.7-15.3); MCH 26.8 pg (25.7-33.7); MCHC 31.1 g/dl (32.0-36.0); MEAN CELL VOLUME 86.2 fl (80-96); MEAN PLT VOLUME 9.6 fl (7.5-11.1); PLATELET COUNT 248 10^3/uL (134-434); RBC 3.15 M/mm3 (3.60-5.2); RDW 21.6 % (11.6-15.6); WHITE BLOOD COUNT 4.9 K/mm3 (4.0-10.0)
[2022-06-04 13:35] LABS: ALBUMIN 1.8 g/dl (3.4-5.0); BLOOD UREA NITROGEN 30.5 mg/dL (7-18); MAGNESIUM 2.2 mg/dL (1.8-2.4)
[2022-06-04 13:38] LABS: CREATININE 0.8 mg/dL (0.55-1.3); PHOSPHOROUS 3.2 mg/dL (2.5-4.9)
[2022-06-04 13:39] LABS: BILIRUBIN,TOTAL 0.3 mg/dL (0.2-1); TOT PROT 5.9 g/dl (6.4-8.2)
[2022-06-04 13:41] LABS: CALCIUM 8.4 mg/dL (8.5-10.1)
[2022-06-04 14:58] VITALS: BP 101/57; PULSE 104; RESP 18; TEMP 98
== END 2022-06-04 18:02 | DRG 4 ==
LOC: JER 09:12 → JERBED 11:09 → JICU 13:13 → J5S 06-03 17:39
PROVIDERS: ADMIT Internal Medicine; ATTEND Internal Medicine
PROC: 5A1955Z Respiratory Ventilation, Greater than 96 Consecutive Hours (ICD-10-PCS; 2022-04-20)
PROC: 0BH17EZ Insertion of Endotracheal Airway into Trachea, Via Natural or Artificial Opening (ICD-10-PCS; 2022-04-20)
PROC: 02HV33Z Insertion of Infusion Device into Superior Vena Cava, Percutaneous Approach (ICD-10-PCS; 2022-04-22)
PROC: B548ZZA Ultrasonography of Superior Vena Cava, Guidance (ICD-10-PCS; 2022-04-22)
PROC: 02HV33Z Insertion of Infusion Device into Superior Vena Cava, Percutaneous Approach (ICD-10-PCS; 2022-05-21)
PROC: B548ZZA Ultrasonography of Superior Vena Cava, Guidance (ICD-10-PCS; 2022-05-21)
PROC: 5A1935Z Respiratory Ventilation, Less than 24 Consecutive Hours (ICD-10-PCS; 2022-05-25)
PROC: 0BH17EZ Insertion of Endotracheal Airway into Trachea, Via Natural or Artificial Opening (ICD-10-PCS; 2022-05-25)
PROC: 0B113Z4 Bypass Trachea to Cutaneous, Percutaneous Approach (ICD-10-PCS; principal; 2022-05-26)
PROC: 0BJ08ZZ Inspection of Tracheobronchial Tree, Via Natural or Artificial Opening Endoscopic (ICD-10-PCS; 2022-05-26)
PROC: 05HC33Z Insertion of Infusion Device into Left Basilic Vein, Percutaneous Approach (ICD-10-PCS; 2022-05-26)
PROC: B54NZZA Ultrasonography of Left Upper Extremity Veins, Guidance (ICD-10-PCS; 2022-05-26)
DX: I11.0 Hypertensive heart disease with heart failure (principal); I50.43 Acute on chronic combined systolic (congestive) and diastolic (congestive) heart failure; J96.01 Acute respiratory failure with hypoxia; J96.02 Acute respiratory failure with hypercapnia; J81.0 Acute pulmonary edema; G93.41 Metabolic encephalopathy; N17.9 Acute kidney failure, unspecified; E87.0 Hyperosmolality and hypernatremia; Z68.41 Body mass index [BMI] 40.0-44.9, adult; E66.2 Morbid (severe) obesity with alveolar hypoventilation; N39.0 Urinary tract infection, site not specified; J98.11 Atelectasis; A04.72 Enterocolitis due to Clostridium difficile, not specified as recurrent; I82.611 Acute embolism and thrombosis of superficial veins of right upper extremity; G72.81 Critical illness myopathy; J44.9 Chronic obstructive pulmonary disease, unspecified; Z99.81 Dependence on supplemental oxygen; I16.0 Hypertensive urgency; E16.2 Hypoglycemia, unspecified; I35.0 Nonrheumatic aortic (valve) stenosis; Z91.14 Patient's other noncompliance with medication regimen; I48.0 Paroxysmal atrial fibrillation; B96.20 Unspecified Escherichia coli [E. coli] as the cause of diseases classified elsewhere; E87.6 Hypokalemia; D64.9 Anemia, unspecified; E88.09 Other disorders of plasma-protein metabolism, not elsewhere classified; G93.89 Other specified disorders of brain
CPT/HCPCS: 0241U-QW; 31500; 36415; 36600; 70450-TC; 71045-TC-FY; 76775-TC; 80048; 80053; 81003; 82140; 82550; 82607; 82803; 82962; 83036; 83605; 83735; 83880; 84100; 84443; 84484; 85025; 85027; 85610; 85730; 86850; 86900; 86901; 87040; 87070; 87086; 87186; 87205; 87324; 87449; 93005; 93010; 93306-TC; 93971; 94002; 94640; 94660; 95816; 97162-GP; 99291; 99292; C9803-CS; P9047; U0003; U0005

== ENCOUNTER 2022-07-31 01:49 | Inpatient (IN) | payer OTHER ==
[2022-07-31 03:34] LABS: BASO % 0.4 % (0-2.0); EOS % 1.9 % (0-4.5); HEMATOCRIT 20.1 % (32.4-45.2); LYMPH % 19.8 % (8-40); MCH 27.4 pg (25.7-33.7); MCHC 30.8 g/dl (32.0-36.0); MEAN PLT VOLUME 9.7 fl (7.5-11.1); MONO % 2.8 % (3.8-10.2); NEUT % 75.1 % (42.8-82.8); PLATELET COUNT 264 10^3/uL (134-434); RBC 2.26 M/mm3 (3.60-5.2); RDW 20.6 % (11.6-15.6); WHITE BLOOD COUNT 7.8 K/mm3 (4.0-10.0)
[2022-07-31 03:42] LABS: INR 1.26 (0.83-1.09); PROTHROMBIN TIME (PATIENT) 14.6 SEC (9.7-13.0)
[2022-07-31 03:45] LABS: ACTIVATED PTT 26.7 SECONDS (25.2-36.5); HEMOGLOBIN 6.2 GM/dL (10.7-15.3)
[2022-07-31 03:52] LABS: VENOUS BASE EXCESS 13.5 mmol/L (-2-2); VENOUS PCO2 53.5 mmHg (38-52); VENOUS PH 7.472 (7.310-7.410)
[2022-07-31 04:01] LABS: CHLORIDE 109 mmol/L (98-107); SODIUM 150 mmol/L (136-145)
[2022-07-31 04:03] LABS: CALCIUM 8.1 mg/dL (8.5-10.1)
[2022-07-31 04:04] LABS: ALBUMIN 1.8 g/dl (3.4-5.0); ANION GAP 4 MMOL/L (8-16); CO2 37 mmol/L (21-32); GLUCOSE,RANDOM 103 mg/dL (74-106)
[2022-07-31 04:07] LABS: CREATININE 2.1 mg/dL (0.55-1.3); SGOT/AST 28 U/L (15-37); SGPT/ALT 23 U/L (13-61)
[2022-07-31 04:08] LABS: BILIRUBIN,TOTAL 0.4 mg/dL (0.2-1)
[2022-07-31 04:10] LABS: ALK PHOS 99 U/L (45-117)
[2022-07-31] MEDS ORDERED: ACETAMINOPHEN 1000 MG/100 ML BAG IVPB ONE (04:19)
[2022-07-31] MEDS ORDERED: ACETAMINOPHEN INJECTION 100 ML IVPB ONE (04:24)
[2022-07-31] MEDS ORDERED: VANCOMYCIN 1 GM in D5W (PRE-DOCKED) 1,000 MG/250 ML IVPB ONE (04:31)
[2022-07-31] MEDS ORDERED: PIPERACILLIN/TAZOB 3.375 GM 3.375 GM in DEXTROSE 5%-WATER - 50 ML IVPB ONE (04:31)
[2022-07-31 05:06] LABS: EPI CELLS 4 /uL (0-25.1); HYALINE CASTS 1 /uL (0-3.1); PH,URINE 8.5 (5.0-8.0); URINE APPEARANCE CLEAR; URINE BACTERIA >9,000 /uL (0-1359); URINE BILIRUBIN NEGATIVE (NEGATIVE); URINE COLOR YELLOW; URINE GLUCOSE (UA) NEGATIVE (NEGATIVE); URINE KETONE NEGATIVE (NEGATIVE); URINE LEUK ESTERASE 3+ (NEGATIVE); URINE NITRITE NEGATIVE (NEGATIVE); URINE PROTEIN 1+ (NEGATIVE); URINE RBC 26 /uL (0-23.9); URINE UROBILINOGEN 0.2 mg/dL (0.2-1.0); URINE WBC 661 /uL (0-25.8)
[2022-07-31] MEDS ORDERED: PIPERACILLIN/TAZOB 3.375 GM 3.375 GM/50 ML BAG IVPB ONE (05:18)
[2022-07-31] MEDS ORDERED: VANCOMYCIN/WATER FOR INJ (PEG) 1,000 MG/200 ML BAG IVPB ONE (05:18)
[2022-07-31 06:52] LABS: ANISOCYTOSIS 3+; MACROCYTOSIS 0; ROULEAU 1+
[2022-07-31 07:49] LABS: N-TERMINAL BNP 42039.6 pg/ml (5-450)
[2022-07-31] MEDS ORDERED: PIPERACILLIN/TAZOB 2.25 GM 2.25 GM/50 ML BAG IVPB ONE (08:14)
[2022-07-31] MEDS: PIPERACILLIN/TAZOB 2.25 GM 2.25 GM in DEXTROSE 5%-WATER - 50 ML IVPB SCH ×2 (08:15→14:58)
[2022-07-31] MEDS ORDERED: FUROSEMIDE 40 MG/5 ML UNIT-DOSE CUP GT SCH (08:30)
[2022-07-31] MEDS ORDERED: ALBUTEROL SO4 2.5/IPRATROPIUM 0.5 INH SOL 3 ML VIAL.NEB. NEB SCH (08:30)
[2022-07-31] MEDS ORDERED: DIGOXIN 0.125 MG TABLET ONE (09:07)
[2022-07-31] MEDS ORDERED: FERROUS SO4 325 MG TABLET (FP) ONE (09:07)
[2022-07-31] MEDS ORDERED: ESCITALOPRAM OXALATE 10 MG TABLET ONE (09:07)
[2022-07-31] MEDS: DIGOXIN 0.125 MG TABLET GT SCH (09:08)
[2022-07-31] MEDS: ESCITALOPRAM OXALATE 10 MG TABLET GT SCH (09:09)
[2022-07-31] MEDS ORDERED: DEXTROSE 5%-0.45% SALINE 1,000 ML IV SCH (10:00)
[2022-07-31] MEDS ORDERED: IRON SUCROSE INJECTION 200 MG in SODIUM CHLORIDE 90 ML IVPB ONE (10:15)
[2022-07-31] MEDS: METOPROLOL TARTRATE 50 MG TABLET (FP) NGT SCH ×2 (11:19→21:21)
[2022-07-31] MEDS: LACTOBACILLUS ACIDOPHILUS 1 TABLET GT SCH (11:19)
[2022-07-31] MEDS: BACITRACIN/POLYMYXIN B SULFATE 15 GM TUBE TP SCH (11:19)
[2022-07-31] MEDS: FERROUS SO4 300 MG/5 ML ORAL SOLN UNIT DOSE CUPS GT SCH (11:19)
[2022-07-31] MEDS: ALBUTEROL SO4 2.5/IPRATROPIUM 0.5 INH SOL 3 ML VIAL.NEB. NEB SCH ×3 (11:40→20:27)
[2022-07-31 11:50] LABS: IRON SERUM 23 ug/dL (50-175)
[2022-07-31 11:51] LABS: TOTAL IRON BINDING CAPACITY 170 ug/dL (250-450)
[2022-07-31] MEDS ORDERED: VANCOMYCIN/WATER 2 GM/400 ML PREMIX BAG IVPB SCH (18:00)
[2022-07-31] MEDS ORDERED: VANCOMYCIN/WATER 2 GRAMS 2,000 MG/400 ML PIGGYBACK IVPB SCH (18:00)
[2022-08-01] MEDS: PIPERACILLIN/TAZOB 2.25 GM 2.25 GM in DEXTROSE 5%-WATER - 50 ML IVPB SCH ×4 (02:10→17:54)
[2022-08-01] MEDS ORDERED: VANCOMYCIN PREMIX 1.5 GM 1,500 MG/300 ML BAG IVPB SCH (06:00)
[2022-08-01] MEDS: FUROSEMIDE 40 MG/5 ML UNIT-DOSE CUP GT SCH ×2 (06:31→13:50)
[2022-08-01] MEDS: ALBUTEROL SO4 2.5/IPRATROPIUM 0.5 INH SOL 3 ML VIAL.NEB. NEB SCH ×4 (07:20→20:22)
[2022-08-01] MEDS: BACITRACIN/POLYMYXIN B SULFATE 15 GM TUBE TP SCH (09:35)
[2022-08-01] MEDS: FERROUS SO4 300 MG/5 ML ORAL SOLN UNIT DOSE CUPS GT SCH (09:35)
[2022-08-01] MEDS: DIGOXIN 0.125 MG TABLET GT SCH (09:35)
[2022-08-01] MEDS: METOPROLOL TARTRATE 50 MG TABLET (FP) NGT SCH ×2 (09:36→21:45)
[2022-08-01] MEDS: LACTOBACILLUS ACIDOPHILUS 1 TABLET GT SCH (09:36)
[2022-08-01] MEDS: ESCITALOPRAM OXALATE 10 MG TABLET GT SCH (09:36)
[2022-08-01 11:29] LABS: BASO % 0.4 % (0-2.0); EOS % 2.2 % (0-4.5); HEMATOCRIT 16.5 % (32.4-45.2); MCH 27.6 pg (25.7-33.7); MEAN PLT VOLUME 9.6 fl (7.5-11.1); MONO % 2.9 % (3.8-10.2); NEUT % 78.5 % (42.8-82.8); PLATELET COUNT 247 10^3/uL (134-434); RBC 1.86 M/mm3 (3.60-5.2); RDW 20.9 % (11.6-15.6); WHITE BLOOD COUNT 9.5 K/mm3 (4.0-10.0)
[2022-08-01 11:45] LABS: BLOOD UREA NITROGEN 69.4 mg/dL (7-18); CALCIUM 8.4 mg/dL (8.5-10.1)
[2022-08-01 11:46] LABS: ALBUMIN 1.8 g/dl (3.4-5.0); MAGNESIUM 2.8 mg/dL (1.8-2.4)
[2022-08-01 11:49] LABS: CREATININE 2.4 mg/dL (0.55-1.3); PHOSPHOROUS 5.2 mg/dL (2.5-4.9)
[2022-08-01 11:50] LABS: BILIRUBIN,TOTAL 0.7 mg/dL (0.2-1); TOT PROT 6.9 g/dl (6.4-8.2)
[2022-08-01 11:52] LABS: HEMOGLOBIN 5.1 GM/dL (10.7-15.3)
[2022-08-01] MEDS ORDERED: NYSTATIN 500,000 UNITS/5 ML SUSPENSION PO SCH (12:00)
[2022-08-01] MEDS ORDERED: FLUCONAZOLE 150 MG TABLET PO ONE (12:16)
[2022-08-02] MEDS: PIPERACILLIN/TAZOB 2.25 GM 2.25 GM in DEXTROSE 5%-WATER - 50 ML IVPB SCH ×2 (02:36→09:27)
[2022-08-02] MEDS: FUROSEMIDE 40 MG/5 ML UNIT-DOSE CUP GT SCH ×2 (05:13→13:07)
[2022-08-02] MEDS ORDERED: VANCOMYCIN PREMIX 1.5 GM 1,500 MG/300 ML BAG IVPB SCH (06:00)
[2022-08-02 07:08] LABS: BASO % 0.5 % (0-2.0); EOS % 1.3 % (0-4.5); HEMATOCRIT 16.8 % (32.4-45.2); LYMPH % 13.8 % (8-40); MCHC 31.4 g/dl (32.0-36.0); MEAN PLT VOLUME 9.2 fl (7.5-11.1); MONO % 2.8 % (3.8-10.2); NEUT % 81.6 % (42.8-82.8); PLATELET COUNT 241 10^3/uL (134-434); RBC 1.89 M/mm3 (3.60-5.2); RDW 20.9 % (11.6-15.6); WHITE BLOOD COUNT 7.3 K/mm3 (4.0-10.0)
[2022-08-02 07:32] LABS: BLOOD UREA NITROGEN 71.4 mg/dL (7-18); CALCIUM 8.3 mg/dL (8.5-10.1)
[2022-08-02 07:33] LABS: ALBUMIN 1.9 g/dl (3.4-5.0)
[2022-08-02 07:35] LABS: HEMOGLOBIN 5.3 GM/dL (10.7-15.3)
[2022-08-02 07:36] LABS: CREATININE 2.5 mg/dL (0.55-1.3)
[2022-08-02 07:37] LABS: BILIRUBIN,TOTAL 0.8 mg/dL (0.2-1); TOT PROT 6.9 g/dl (6.4-8.2)
[2022-08-02] MEDS: ALBUTEROL SO4 2.5/IPRATROPIUM 0.5 INH SOL 3 ML VIAL.NEB. NEB SCH ×4 (07:40→20:21)
[2022-08-02] MEDS: DIGOXIN 0.125 MG TABLET GT SCH (09:25)
[2022-08-02] MEDS: METOPROLOL TARTRATE 50 MG TABLET (FP) NGT SCH (09:26)
[2022-08-02] MEDS: FERROUS SO4 300 MG/5 ML ORAL SOLN UNIT DOSE CUPS GT SCH (09:27)
[2022-08-02] MEDS: BACITRACIN/POLYMYXIN B SULFATE 15 GM TUBE TP SCH (09:27)
[2022-08-02] MEDS: ESCITALOPRAM OXALATE 10 MG TABLET GT SCH (09:27)
[2022-08-02] MEDS: LACTOBACILLUS ACIDOPHILUS 1 TABLET GT SCH (09:27)
[2022-08-02] MEDS: KCL 10 MEQ IVPB 10 MEQ/100 ML INFUS.BAG IVPB SCH ×2 (11:50→13:07)
[2022-08-02] MEDS ORDERED: DEXTROSE 5%-WATER - 1,000 ML with POTASSIUM CHLORIDE 20 MEQ IV SCH (12:15)
[2022-08-02] MEDS: IRON SUCROSE INJECTION 100 MG in SODIUM CHLORIDE 100 ML IVPB SCH (12:32)
[2022-08-02] MEDS ORDERED: MULTIVIT-MINERALS ORAL LIQUID PO SCH (16:45)
[2022-08-02] MEDS ORDERED: ASCORBIC ACID 500 MG/5 ML PO SCH (16:45)
[2022-08-02] MEDS: POTASSIUM CHLORIDE 20 MEQ in DEXTROSE 5%-WATER - 1,000 ML IV SCH (17:30)
[2022-08-02] MEDS: AMINO ACIDS/PROTEIN HYDROLYS 30 ML LIQUID.PKT PO SCH (17:30)
[2022-08-02] MEDS: ALPRAZolam 0.25 MG TABLET PO PRN (18:39)
[2022-08-02] MEDS ORDERED: METOPROLOL TARTRATE 5 MG/5 ML VIAL IVPUSH PRN (20:33)
[2022-08-03] MEDS: FUROSEMIDE 40 MG/5 ML UNIT-DOSE CUP GT SCH ×2 (06:27→13:10)
[2022-08-03 07:34] LABS: ALBUMIN 1.8 g/dl (3.4-5.0); BLOOD UREA NITROGEN 68.2 mg/dL (7-18); MAGNESIUM 2.6 mg/dL (1.8-2.4)
[2022-08-03] MEDS: ALBUTEROL SO4 2.5/IPRATROPIUM 0.5 INH SOL 3 ML VIAL.NEB. NEB SCH ×4 (07:35→20:05)
[2022-08-03 07:37] LABS: CREATININE 2.5 mg/dL (0.55-1.3); PHOSPHOROUS 4.9 mg/dL (2.5-4.9)
[2022-08-03 07:38] LABS: BILIRUBIN,TOTAL 0.6 mg/dL (0.2-1); TOT PROT 6.7 g/dl (6.4-8.2)
[2022-08-03 07:57] LABS: BASO % 0.5 % (0-2.0); HEMATOCRIT 16.1 % (32.4-45.2); LYMPH % 14.6 % (8-40); MEAN CELL VOLUME 90.2 fl (80-96); MEAN PLT VOLUME 9.5 fl (7.5-11.1); MONO % 3.8 % (3.8-10.2); NEUT % 79.1 % (42.8-82.8); PLATELET COUNT 236 10^3/uL (134-434); RBC 1.78 M/mm3 (3.60-5.2); RDW 20.8 % (11.6-15.6); WHITE BLOOD COUNT 6.1 K/mm3 (4.0-10.0)
[2022-08-03] MEDS ORDERED: KCL 10 MEQ IVPB 10 MEQ/100 ML INFUS.BAG IVPB SCH (08:15)
[2022-08-03] MEDS ORDERED: DEXTROSE 5%-WATER - 1,000 ML with POTASSIUM CHLORIDE 20 MEQ IV SCH (08:30)
[2022-08-03 09:03] LABS: ANISOCYTOSIS 2+; MACROCYTOSIS 1+
[2022-08-03] MEDS: AMINO ACIDS/PROTEIN HYDROLYS 30 ML LIQUID.PKT PO SCH ×2 (09:26→16:59)
[2022-08-03] MEDS: ALPRAZolam 0.25 MG TABLET PO PRN (09:26)
[2022-08-03] MEDS: ESCITALOPRAM OXALATE 10 MG TABLET GT SCH (09:26)
[2022-08-03] MEDS: FERROUS SO4 300 MG/5 ML ORAL SOLN UNIT DOSE CUPS GT SCH (09:27)
[2022-08-03] MEDS: ACETAMINOPHEN 650 MG/20.3 ML ORAL SOLUTION (CUPS) GT PRN (09:27)
[2022-08-03] MEDS: LACTOBACILLUS ACIDOPHILUS 1 TABLET GT SCH (09:27)
[2022-08-03] MEDS: KCL 10 MEQ IVPB 10 MEQ/100 ML INFUS.BAG IVPB SCH ×2 (09:29→10:35)
[2022-08-03] MEDS: ASCORBIC ACID 500 MG/5 ML GT SCH (09:29)
[2022-08-03] MEDS: MULTIVIT-MINERALS ORAL LIQUID GT SCH (09:33)
[2022-08-03] MEDS: BACITRACIN/POLYMYXIN B SULFATE 15 GM TUBE TP SCH (09:34)
[2022-08-03] MEDS ORDERED: EPOETIN ALFA-EPBX 20,000 UNIT/ML VIAL SQ ONE (10:00)
[2022-08-03] MEDS: IRON SUCROSE INJECTION 100 MG in SODIUM CHLORIDE 100 ML IVPB SCH (10:07)
[2022-08-03] MEDS: ERTAPENEM SODIUM 0.5 GM in SODIUM CHLORIDE 50 ML IVPB SCH (12:16)
[2022-08-03] MEDS: POTASSIUM CHLORIDE 20 MEQ in DEXTROSE 5%-WATER - 1,000 ML IV SCH (13:10)
[2022-08-03 17:16] LABS: CALCIUM 7.9 mg/dL (8.5-10.1)
[2022-08-03 17:17] LABS: BLOOD UREA NITROGEN 68.1 mg/dL (7-18)
[2022-08-03 17:20] LABS: CREATININE 2.3 mg/dL (0.55-1.3)
[2022-08-03 19:51] LABS: BASO % 0.4 % (0-2.0); EOS % 2.7 % (0-4.5); HEMATOCRIT 17.9 % (32.4-45.2); LYMPH % 16.3 % (8-40); MCH 27.3 pg (25.7-33.7); MCHC 30.1 g/dl (32.0-36.0); MEAN CELL VOLUME 90.8 fl (80-96); MEAN PLT VOLUME 9.2 fl (7.5-11.1); MONO % 4.5 % (3.8-10.2); NEUT % 76.1 % (42.8-82.8); PLATELET COUNT 239 10^3/uL (134-434); RBC 1.97 M/mm3 (3.60-5.2); RDW 21.3 % (11.6-15.6); RETICULOCYTES 2.01 % (0.5-1.5); WHITE BLOOD COUNT 5.9 K/mm3 (4.0-10.0)
[2022-08-03 20:10] LABS: HEMOGLOBIN 5.4 GM/dL (10.7-15.3)
[2022-08-04] MEDS: ALPRAZolam 0.25 MG TABLET PO PRN ×2 (05:12→17:29)
[2022-08-04] MEDS: ACETAMINOPHEN 650 MG/20.3 ML ORAL SOLUTION (CUPS) GT PRN ×2 (05:13→17:29)
[2022-08-04] MEDS: FUROSEMIDE 40 MG/5 ML UNIT-DOSE CUP GT SCH ×2 (05:14→13:06)
[2022-08-04 07:35] LABS: BASO % 0.2 % (0-2.0); EOS % 3.5 % (0-4.5); HEMATOCRIT 16.3 % (32.4-45.2); LYMPH % 16.2 % (8-40); MCHC 31.3 g/dl (32.0-36.0); MEAN CELL VOLUME 89.4 fl (80-96); MEAN PLT VOLUME 9.4 fl (7.5-11.1); MONO % 3.5 % (3.8-10.2); NEUT % 76.6 % (42.8-82.8); PLATELET COUNT 245 10^3/uL (134-434); RBC 1.82 M/mm3 (3.60-5.2); RDW 21.1 % (11.6-15.6); WHITE BLOOD COUNT 6.2 K/mm3 (4.0-10.0)
[2022-08-04 07:51] LABS: CALCIUM 7.3 mg/dL (8.5-10.1)
[2022-08-04 07:52] LABS: ALBUMIN 1.7 g/dl (3.4-5.0); BLOOD UREA NITROGEN 65.5 mg/dL (7-18); MAGNESIUM 2.4 mg/dL (1.8-2.4)
[2022-08-04 07:55] LABS: CREATININE 2.2 mg/dL (0.55-1.3); PHOSPHOROUS 4.7 mg/dL (2.5-4.9)
[2022-08-04 07:56] LABS: BILIRUBIN,TOTAL 0.4 mg/dL (0.2-1); TOT PROT 6.4 g/dl (6.4-8.2)
[2022-08-04] MEDS ORDERED: POTASSIUM CHLORIDE ORAL LIQUID 20 MEQ/15 ML PO ONE ×2 (07:57→14:00)
[2022-08-04 08:03] LABS: HEMOGLOBIN 5.1 GM/dL (10.7-15.3)
[2022-08-04] MEDS: ALBUTEROL SO4 2.5/IPRATROPIUM 0.5 INH SOL 3 ML VIAL.NEB. NEB SCH ×4 (08:29→20:44)
[2022-08-04] MEDS: FERROUS SO4 300 MG/5 ML ORAL SOLN UNIT DOSE CUPS GT SCH (10:30)
[2022-08-04] MEDS: ESCITALOPRAM OXALATE 10 MG TABLET GT SCH (10:30)
[2022-08-04] MEDS: POTASSIUM CHLORIDE 20 MEQ in DEXTROSE 5%-WATER - 1,000 ML IV SCH ×2 (10:31→20:39)
[2022-08-04] MEDS: AMINO ACIDS/PROTEIN HYDROLYS 30 ML LIQUID.PKT PO SCH ×2 (10:31→16:49)
[2022-08-04] MEDS: LACTOBACILLUS ACIDOPHILUS 1 TABLET GT SCH (10:31)
[2022-08-04] MEDS: MULTIVIT-MINERALS ORAL LIQUID GT SCH (10:31)
[2022-08-04] MEDS: ERTAPENEM SODIUM 0.5 GM in SODIUM CHLORIDE 50 ML IVPB SCH (10:33)
[2022-08-04] MEDS: ASCORBIC ACID 500 MG/5 ML GT SCH (10:34)
[2022-08-04] MEDS: BACITRACIN/POLYMYXIN B SULFATE 15 GM TUBE TP SCH (10:34)
[2022-08-04] MEDS: IRON SUCROSE INJECTION 100 MG in SODIUM CHLORIDE 100 ML IVPB SCH (10:42)
[2022-08-04] MEDS: DIGOXIN 0.125 MG TABLET GT SCH (10:42)
[2022-08-04] MEDS: METOPROLOL TARTRATE 50 MG TABLET (FP) NGT SCH (10:42)
[2022-08-04] MEDS: KCL 10 MEQ IVPB 10 MEQ/100 ML INFUS.BAG IVPB SCH ×2 (13:06→14:00)
[2022-08-04] MEDS ORDERED: EPOETIN ALFA-EPBX 40,000 UNIT/ML VIAL SQ ONE (14:00)
[2022-08-04 16:16] LABS: BLOOD UREA NITROGEN 67.5 mg/dL (7-18); CALCIUM 7.5 mg/dL (8.5-10.1)
[2022-08-04 18:07] LABS: FREE KAPPA,SERUM 413.7 mg/L (3.3-19.4)
[2022-08-04 20:43] LABS: RETICULOCYTES 2.21 % (0.5-1.5)
[2022-08-04 20:48] LABS: BASO % 0.5 % (0-2.0); EOS % 3.1 % (0-4.5); HEMATOCRIT 18.4 % (32.4-45.2); LYMPH % 14.6 % (8-40); MCH 27.8 pg (25.7-33.7); MCHC 30.2 g/dl (32.0-36.0); MEAN CELL VOLUME 92.1 fl (80-96); MEAN PLT VOLUME 9.6 fl (7.5-11.1); MONO % 2.9 % (3.8-10.2); NEUT % 78.9 % (42.8-82.8); PLATELET COUNT 248 10^3/uL (134-434); RDW 21.4 % (11.6-15.6); WHITE BLOOD COUNT 7.2 K/mm3 (4.0-10.0)
[2022-08-04 20:49] LABS: HEMOGLOBIN 5.6 GM/dL (10.7-15.3)
[2022-08-04] MEDS ORDERED: ACETAMINOPHEN 1000 MG/100 ML BAG IVPB ONE (20:57)
[2022-08-05] MEDS ORDERED: LIDOCAINE 5% TOPICAL PATCH TP ONE (06:07)
[2022-08-05] MEDS: FUROSEMIDE 40 MG/5 ML UNIT-DOSE CUP GT SCH ×2 (06:10→14:18)
[2022-08-05] MEDS ORDERED: ACETAMINOPHEN 1000 MG/100 ML BAG IVPB ONE (06:12)
[2022-08-05 06:46] LABS: BASO % 0.4 % (0-2.0); EOS % 3.4 % (0-4.5); HEMATOCRIT 18.4 % (32.4-45.2); MCH 28.4 pg (25.7-33.7); MCHC 31.5 g/dl (32.0-36.0); MEAN CELL VOLUME 90.2 fl (80-96); MEAN PLT VOLUME 9.4 fl (7.5-11.1); MONO % 3.5 % (3.8-10.2); NEUT % 73.7 % (42.8-82.8); PLATELET COUNT 250 10^3/uL (134-434); RBC 2.04 M/mm3 (3.60-5.2); RDW 20.8 % (11.6-15.6); WHITE BLOOD COUNT 7.4 K/mm3 (4.0-10.0)
[2022-08-05 07:05] LABS: CALCIUM 7.6 mg/dL (8.5-10.1)
[2022-08-05 07:06] LABS: HEMOGLOBIN 5.8 GM/dL (10.7-15.3)
[2022-08-05 07:07] LABS: ALBUMIN 1.8 g/dl (3.4-5.0)
[2022-08-05 07:08] LABS: MAGNESIUM 2.3 mg/dL (1.8-2.4)
[2022-08-05 07:13] LABS: BILIRUBIN,TOTAL 0.3 mg/dL (0.2-1); BLOOD UREA NITROGEN 67.4 mg/dL (7-18); PHOSPHOROUS 3.8 mg/dL (2.5-4.9); TOT PROT 6.7 g/dl (6.4-8.2)
[2022-08-05] MEDS: ALBUTEROL SO4 2.5/IPRATROPIUM 0.5 INH SOL 3 ML VIAL.NEB. NEB SCH ×4 (07:20→20:59)
[2022-08-05] MEDS: AMINO ACIDS/PROTEIN HYDROLYS 30 ML LIQUID.PKT PO SCH ×2 (07:40→17:15)
[2022-08-05] MEDS: ERTAPENEM SODIUM 0.5 GM in SODIUM CHLORIDE 50 ML IVPB SCH (09:02)
[2022-08-05] MEDS: ESCITALOPRAM OXALATE 10 MG TABLET GT SCH (09:02)
[2022-08-05] MEDS: FERROUS SO4 300 MG/5 ML ORAL SOLN UNIT DOSE CUPS GT SCH (09:02)
[2022-08-05] MEDS: LACTOBACILLUS ACIDOPHILUS 1 TABLET GT SCH (09:02)
[2022-08-05] MEDS: BACITRACIN/POLYMYXIN B SULFATE 15 GM TUBE TP SCH (09:03)
[2022-08-05] MEDS: ASCORBIC ACID 500 MG/5 ML GT SCH (09:03)
[2022-08-05] MEDS: MULTIVIT-MINERALS ORAL LIQUID GT SCH (09:03)
[2022-08-05] MEDS: POTASSIUM CHLORIDE 20 MEQ in DEXTROSE 5%-WATER - 1,000 ML IV SCH ×2 (11:10→12:33)
[2022-08-05] MEDS: LIDOCAINE 5% TOPICAL PATCH TP SCH (14:19)
[2022-08-05 15:02] LABS: CALCIUM 7.8 mg/dL (8.5-10.1)
[2022-08-05 15:03] LABS: BLOOD UREA NITROGEN 68.3 mg/dL (7-18)
[2022-08-05 15:06] LABS: CREATININE 1.8 mg/dL (0.55-1.3)
[2022-08-05] MEDS ORDERED: EPOETIN ALFA-EPBX 40,000 UNIT/ML VIAL SQ ONE (15:37)
[2022-08-05] MEDS: LIDOCAINE PATCH REMOVAL MC SCH (21:10)
[2022-08-05] MEDS ORDERED: LIDOCAINE PATCH REMOVAL MC SCH (22:00)
[2022-08-05 22:12] LABS: CALCIUM 8.3 mg/dL (8.5-10.1)
[2022-08-05 22:16] LABS: CREATININE 1.7 mg/dL (0.55-1.3)
[2022-08-05 22:26] LABS: BLOOD UREA NITROGEN 62.9 mg/dL (7-18)
[2022-08-06] MEDS: ACETAMINOPHEN 650 MG/20.3 ML ORAL SOLUTION (CUPS) GT PRN (03:42)
[2022-08-06] MEDS: ALPRAZolam 0.25 MG TABLET PO PRN ×2 (03:42→21:13)
[2022-08-06] MEDS: FUROSEMIDE 40 MG/5 ML UNIT-DOSE CUP GT SCH ×2 (05:01→13:36)
[2022-08-06 07:01] LABS: CALCIUM 7.8 mg/dL (8.5-10.1)
[2022-08-06 07:02] LABS: ALBUMIN 1.8 g/dl (3.4-5.0); BLOOD UREA NITROGEN 62.9 mg/dL (7-18); MAGNESIUM 2.3 mg/dL (1.8-2.4)
[2022-08-06 07:05] LABS: CREATININE 1.7 mg/dL (0.55-1.3); PHOSPHOROUS 4.3 mg/dL (2.5-4.9)
[2022-08-06] MEDS: POTASSIUM CHLORIDE 20 MEQ in DEXTROSE 5%-WATER - 1,000 ML IV SCH (07:05)
[2022-08-06 07:06] LABS: BILIRUBIN,TOTAL 0.3 mg/dL (0.2-1); TOT PROT 6.6 g/dl (6.4-8.2)
[2022-08-06 07:15] LABS: RDW 21.4 % (11.6-15.6)
[2022-08-06 07:24] LABS: BASO % 0.6 % (0-2.0); EOS % 2.3 % (0-4.5); LYMPH % 15.5 % (8-40); MCH 28.7 pg (25.7-33.7); MCHC 31.7 g/dl (32.0-36.0); MEAN CELL VOLUME 90.6 fl (80-96); MEAN PLT VOLUME 9.7 fl (7.5-11.1); MONO % 2.8 % (3.8-10.2); NEUT % 78.8 % (42.8-82.8); PLATELET COUNT 255 10^3/uL (134-434); RBC 1.98 M/mm3 (3.60-5.2); WHITE BLOOD COUNT 7.2 K/mm3 (4.0-10.0)
[2022-08-06] MEDS: AMINO ACIDS/PROTEIN HYDROLYS 30 ML LIQUID.PKT PO SCH ×2 (07:26→16:37)
[2022-08-06 07:33] LABS: HEMOGLOBIN 5.7 GM/dL (10.7-15.3)
[2022-08-06] MEDS: ALBUTEROL SO4 2.5/IPRATROPIUM 0.5 INH SOL 3 ML VIAL.NEB. NEB SCH ×4 (07:40→20:35)
[2022-08-06] MEDS ORDERED: IRON SUCROSE INJECTION 100 MG in SODIUM CHLORIDE 95 ML IVPB ONE (09:00)
[2022-08-06] MEDS: LIDOCAINE 5% TOPICAL PATCH TP SCH (09:26)
[2022-08-06] MEDS: ERTAPENEM SODIUM 0.5 GM in SODIUM CHLORIDE 50 ML IVPB SCH (09:26)
[2022-08-06] MEDS: ESCITALOPRAM OXALATE 10 MG TABLET GT SCH (09:27)
[2022-08-06] MEDS: ASCORBIC ACID 500 MG/5 ML GT SCH (09:27)
[2022-08-06] MEDS: FERROUS SO4 300 MG/5 ML ORAL SOLN UNIT DOSE CUPS GT SCH (09:27)
[2022-08-06] MEDS: LACTOBACILLUS ACIDOPHILUS 1 TABLET GT SCH (09:27)
[2022-08-06] MEDS: MULTIVIT-MINERALS ORAL LIQUID GT SCH (09:27)
[2022-08-06] MEDS: BACITRACIN/POLYMYXIN B SULFATE 15 GM TUBE TP SCH (09:28)
[2022-08-06] MEDS: SODIUM CHLORIDE 0.45% 1,000 ML IV SCH (09:32)
[2022-08-06] MEDS ORDERED: HYDROmorphone HCL 2 MG TABLET PO PRN (12:46)
[2022-08-06 14:57] VITALS: BMI 43.8
[2022-08-06] MEDS ORDERED: EPOETIN ALFA-EPBX 40,000 UNIT/ML VIAL SQ ONE (17:00)
[2022-08-06] MEDS: LIDOCAINE PATCH REMOVAL MC SCH (21:13)
[2022-08-07] MEDS: FUROSEMIDE 40 MG/5 ML UNIT-DOSE CUP GT SCH ×2 (06:55→15:44)
[2022-08-07 07:41] LABS: BASO % 0.3 % (0-2.0); EOS % 2.4 % (0-4.5); HEMATOCRIT 19.5 % (32.4-45.2); LYMPH % 14.4 % (8-40); MCHC 31.9 g/dl (32.0-36.0); MEAN CELL VOLUME 90.8 fl (80-96); MEAN PLT VOLUME 9.4 fl (7.5-11.1); MONO % 3.1 % (3.8-10.2); NEUT % 79.8 % (42.8-82.8); PLATELET COUNT 281 10^3/uL (134-434); RBC 2.15 M/mm3 (3.60-5.2); RDW 21.2 % (11.6-15.6); WHITE BLOOD COUNT 8.5 K/mm3 (4.0-10.0)
[2022-08-07 07:54] LABS: HEMOGLOBIN 6.2 GM/dL (10.7-15.3)
[2022-08-07 07:58] LABS: CALCIUM 8.3 mg/dL (8.5-10.1)
[2022-08-07 08:00] LABS: BLOOD UREA NITROGEN 62.3 mg/dL (7-18); MAGNESIUM 2.1 mg/dL (1.8-2.4)
[2022-08-07 08:02] LABS: PHOSPHOROUS 3.5 mg/dL (2.5-4.9)
[2022-08-07 08:03] LABS: CREATININE 1.4 mg/dL (0.55-1.3)
[2022-08-07 08:04] LABS: BILIRUBIN,TOTAL 0.3 mg/dL (0.2-1)
[2022-08-07] MEDS: ALBUTEROL SO4 2.5/IPRATROPIUM 0.5 INH SOL 3 ML VIAL.NEB. NEB SCH ×4 (08:10→21:26)
[2022-08-07] MEDS: AMINO ACIDS/PROTEIN HYDROLYS 30 ML LIQUID.PKT PO SCH ×2 (09:17→17:50)
[2022-08-07] MEDS: FERROUS SO4 300 MG/5 ML ORAL SOLN UNIT DOSE CUPS GT SCH (09:17)
[2022-08-07] MEDS: LACTOBACILLUS ACIDOPHILUS 1 TABLET GT SCH (09:17)
[2022-08-07] MEDS: ESCITALOPRAM OXALATE 10 MG TABLET GT SCH (09:17)
[2022-08-07] MEDS: LIDOCAINE 5% TOPICAL PATCH TP SCH (09:17)
[2022-08-07] MEDS: MULTIVIT-MINERALS ORAL LIQUID GT SCH (09:18)
[2022-08-07] MEDS: BACITRACIN/POLYMYXIN B SULFATE 15 GM TUBE TP SCH (09:18)
[2022-08-07] MEDS: ASCORBIC ACID 500 MG/5 ML GT SCH (09:18)
[2022-08-07 10:15] LABS: ANISOCYTOSIS 1+; MACROCYTOSIS 0
[2022-08-07] MEDS: LACTATED RINGERS SOLUTION 1,000 ML/1,000 ML INFUS.BAG IV SCH (12:27)
[2022-08-07] MEDS: SODIUM CHLORIDE 0.45% 1,000 ML IV SCH (12:32)
[2022-08-07] MEDS: LIDOCAINE PATCH REMOVAL MC SCH (23:24)
[2022-08-08] MEDS: LACTATED RINGERS SOLUTION 1,000 ML/1,000 ML INFUS.BAG IV SCH (02:27)
[2022-08-08] MEDS: FUROSEMIDE 40 MG/5 ML UNIT-DOSE CUP GT SCH ×2 (07:24→13:53)
[2022-08-08 08:13] LABS: BASO % 0.3 % (0-2.0); EOS % 2.5 % (0-4.5); HEMATOCRIT 18.7 % (32.4-45.2); LYMPH % 16.4 % (8-40); MCH 29.2 pg (25.7-33.7); MCHC 32.1 g/dl (32.0-36.0); MEAN CELL VOLUME 90.9 fl (80-96); MEAN PLT VOLUME 9.5 fl (7.5-11.1); MONO % 3.3 % (3.8-10.2); NEUT % 77.5 % (42.8-82.8); PLATELET COUNT 268 10^3/uL (134-434); RBC 2.06 M/mm3 (3.60-5.2); RDW 22.6 % (11.6-15.6); WHITE BLOOD COUNT 7.1 K/mm3 (4.0-10.0)
[2022-08-08 08:15] LABS: ALBUMIN 1.9 g/dl (3.4-5.0); BLOOD UREA NITROGEN 61.6 mg/dL (7-18); CALCIUM 8.4 mg/dL (8.5-10.1); MAGNESIUM 2.1 mg/dL (1.8-2.4)
[2022-08-08 08:19] LABS: CREATININE 1.2 mg/dL (0.55-1.3); PHOSPHOROUS 3.5 mg/dL (2.5-4.9)
[2022-08-08 08:20] LABS: BILIRUBIN,TOTAL 0.3 mg/dL (0.2-1); TOT PROT 6.8 g/dl (6.4-8.2)
[2022-08-08] MEDS: ALBUTEROL SO4 2.5/IPRATROPIUM 0.5 INH SOL 3 ML VIAL.NEB. NEB SCH ×4 (08:48→20:45)
[2022-08-08] MEDS: AMINO ACIDS/PROTEIN HYDROLYS 30 ML LIQUID.PKT PO SCH ×2 (09:00→17:04)
[2022-08-08] MEDS: MULTIVIT-MINERALS ORAL LIQUID GT SCH (09:45)
[2022-08-08] MEDS: ESCITALOPRAM OXALATE 10 MG TABLET GT SCH (09:45)
[2022-08-08] MEDS: LACTOBACILLUS ACIDOPHILUS 1 TABLET GT SCH (09:45)
[2022-08-08] MEDS: FERROUS SO4 300 MG/5 ML ORAL SOLN UNIT DOSE CUPS GT SCH (09:45)
[2022-08-08] MEDS: ALPRAZolam 0.25 MG TABLET PO PRN (09:46)
[2022-08-08] MEDS: ASCORBIC ACID 500 MG/5 ML GT SCH (09:46)
[2022-08-08] MEDS: ACETAMINOPHEN 650 MG/20.3 ML ORAL SOLUTION (CUPS) GT PRN (09:46)
[2022-08-08] MEDS: LIDOCAINE 5% TOPICAL PATCH TP SCH (09:46)
[2022-08-08] MEDS: BACITRACIN/POLYMYXIN B SULFATE 15 GM TUBE TP SCH (09:51)
[2022-08-08] MEDS: LIDOCAINE PATCH REMOVAL MC SCH (21:57)
[2022-08-09] MEDS: FUROSEMIDE 40 MG/5 ML UNIT-DOSE CUP GT SCH ×2 (06:17→16:01)
[2022-08-09] MEDS: ALBUTEROL SO4 2.5/IPRATROPIUM 0.5 INH SOL 3 ML VIAL.NEB. NEB SCH ×4 (07:10→20:40)
[2022-08-09 07:40] LABS: BASO % 0.4 % (0-2.0); EOS % 2.3 % (0-4.5); HEMATOCRIT 19.3 % (32.4-45.2); LYMPH % 13.8 % (8-40); MCH 28.6 pg (25.7-33.7); MEAN CELL VOLUME 92.1 fl (80-96); MEAN PLT VOLUME 8.9 fl (7.5-11.1); NEUT % 79.5 % (42.8-82.8); PLATELET COUNT 265 10^3/uL (134-434); RDW 23.2 % (11.6-15.6); WHITE BLOOD COUNT 6.2 K/mm3 (4.0-10.0)
[2022-08-09 07:53] LABS: BLOOD UREA NITROGEN 60.8 mg/dL (7-18); CALCIUM 8.1 mg/dL (8.5-10.1)
[2022-08-09 07:58] LABS: CREATININE 1.2 mg/dL (0.55-1.3)
[2022-08-09 09:04] LABS: MAGNESIUM 2.1 mg/dL (1.8-2.4)
[2022-08-09 09:08] LABS: PHOSPHOROUS 3.9 mg/dL (2.5-4.9)
[2022-08-09] MEDS: AMINO ACIDS/PROTEIN HYDROLYS 30 ML LIQUID.PKT PO SCH ×2 (10:06→18:06)
[2022-08-09] MEDS: FERROUS SO4 300 MG/5 ML ORAL SOLN UNIT DOSE CUPS GT SCH (10:06)
[2022-08-09] MEDS: ESCITALOPRAM OXALATE 10 MG TABLET GT SCH (10:06)
[2022-08-09] MEDS: ASCORBIC ACID 500 MG/5 ML GT SCH (10:11)
[2022-08-09] MEDS: LACTOBACILLUS ACIDOPHILUS 1 TABLET GT SCH (10:12)
[2022-08-09] MEDS: MULTIVIT-MINERALS ORAL LIQUID GT SCH (10:12)
[2022-08-09] MEDS: LIDOCAINE 5% TOPICAL PATCH TP SCH (10:12)
[2022-08-09] MEDS: BACITRACIN/POLYMYXIN B SULFATE 15 GM TUBE TP SCH (10:32)
[2022-08-09] MEDS ORDERED: POTASSIUM CHLORIDE ORAL LIQUID 20 MEQ/15 ML PO ONE (12:45)
[2022-08-09] MEDS ORDERED: EPOETIN ALFA-EPBX 40,000 UNIT/ML VIAL SQ ONE (12:46)
[2022-08-09] MEDS ORDERED: IRON SUCROSE INJECTION 100 MG in SODIUM CHLORIDE 95 ML IVPB ONE (12:46)
[2022-08-09] MEDS ORDERED: INSULIN (NOVOLOG) ASPART 100 UNITS/ML 10ML VIAL ONE (13:06)
[2022-08-09] MEDS: ALPRAZolam 0.25 MG TABLET PO PRN (20:52)
[2022-08-09 21:45] VITALS: BP 130/79; PULSE 79; RESP 25; TEMP 98.2
== END 2022-08-09 22:00 | DRG 811 ==
LOC: JER 01:49 → JERBED 05:32 → J2W 10:54
PROVIDERS: ADMIT Internal Medicine; ATTEND Internal Medicine
PROC: 5A1955Z Respiratory Ventilation, Greater than 96 Consecutive Hours (ICD-10-PCS; principal; 2022-07-31)
DX: D64.9 Anemia, unspecified (principal); I50.43 Acute on chronic combined systolic (congestive) and diastolic (congestive) heart failure; J96.21 Acute and chronic respiratory failure with hypoxia; J96.22 Acute and chronic respiratory failure with hypercapnia; N17.0 Acute kidney failure with tubular necrosis; E87.0 Hyperosmolality and hypernatremia; Z68.41 Body mass index [BMI] 40.0-44.9, adult; I24.8 Other forms of acute ischemic heart disease; N39.0 Urinary tract infection, site not specified; I13.0 Hypertensive heart and chronic kidney disease with heart failure and stage 1 through stage 4 chronic kidney disease, or unspecified chronic kidney disease; N18.9 Chronic kidney disease, unspecified; N20.0 Calculus of kidney; E87.6 Hypokalemia; I48.91 Unspecified atrial fibrillation; E78.00 Pure hypercholesterolemia, unspecified; J44.9 Chronic obstructive pulmonary disease, unspecified; G47.30 Sleep apnea, unspecified; E66.01 Morbid (severe) obesity due to excess calories; B96.20 Unspecified Escherichia coli [E. coli] as the cause of diseases classified elsewhere; B96.1 Klebsiella pneumoniae [K. pneumoniae] as the cause of diseases classified elsewhere; B96.4 Proteus (mirabilis) (morganii) as the cause of diseases classified elsewhere; Z93.1 Gastrostomy status; Z93.0 Tracheostomy status
CPT/HCPCS: 0241U-QW; 36415; 71045-TC-FY; 76775-TC; 80048; 80053; 80061; 81003; 82272; 82550; 82553; 82728; 82803; 82962; 83540; 83550; 83605; 83735; 83880; 83883; 84100; 84155; 84165; 84484; 85025; 85045; 85610; 85730; 86850; 86900; 86901; 86922; 87040; 87086; 87186; 93005; 93010; 94002; 94640; 97161-GP; 99285-25; C9803-CS; E0372; J1756; Q5106; U0003; U0005

== ENCOUNTER 2022-10-08 15:04 | Inpatient (IN) | payer OTHER ==
[2022-10-08] MEDS ORDERED: VANCOMYCIN/WATER FOR INJ (PEG) 1,000 MG/200 ML BAG IVPB ONE (15:39)
[2022-10-08] MEDS ORDERED: PIPERACILLIN/TAZOB 3.375 GM 3.375 GM/50 ML BAG IVPB ONE (15:39)
[2022-10-08] MEDS ORDERED: PIPERACILLIN/TAZOB 3.375 GM 3.375 GM in DEXTROSE 5%-WATER - 50 ML IVPB ONE (15:46)
[2022-10-08] MEDS ORDERED: VANCOMYCIN 1 GM in D5W (PRE-DOCKED) 1,000 MG/250 ML (RESTRICTED TO ID ONLY IVPB ONE (15:46)
[2022-10-08 16:01] LABS: VENOUS BASE EXCESS 1.8 mmol/L (-2-2); VENOUS O2 SATURATION 94.1 % (70-80); VENOUS PCO2 52.6 mmHg (38-52); VENOUS PH 7.344 (7.310-7.410)
[2022-10-08 16:12] LABS: INR 1.31 (0.83-1.09); PROTHROMBIN TIME (PATIENT) 15.2 SEC (9.7-13.0)
[2022-10-08 16:14] LABS: ACTIVATED PTT 30.8 SECONDS (25.2-36.5)
[2022-10-08 16:37] LABS: BASO % 0.2 % (0-2.0); CHLORIDE 100 mmol/L (98-107); EOS % 0.5 % (0-4.5); HEMATOCRIT 24.4 % (32.4-45.2); HEMOGLOBIN 7.9 GM/dL (10.7-15.3); LYMPH % 5.8 % (8-40); MCH 27.3 pg (25.7-33.7); MCHC 32.5 g/dl (32.0-36.0); MEAN CELL VOLUME 83.9 fl (80-96); MEAN PLT VOLUME 9.8 fl (7.5-11.1); MONO % 4.5 % (3.8-10.2); PLATELET COUNT 179 10^3/uL (134-434); RBC 2.91 M/mm3 (3.60-5.2); RDW 20.3 % (11.6-15.6); SODIUM 137 mmol/L (136-145); WHITE BLOOD COUNT 7.5 K/mm3 (4.0-10.0)
[2022-10-08 16:40] LABS: CALCIUM 8.5 mg/dL (8.5-10.1)
[2022-10-08 16:41] LABS: ALBUMIN 1.9 g/dl (3.4-5.0); ANION GAP 7 MMOL/L (8-16); CO2 29 mmol/L (21-32); GLUCOSE,RANDOM 136 mg/dL (74-106); MAGNESIUM 2.2 mg/dL (1.8-2.4)
[2022-10-08 16:42] LABS: LACTIC ACID 2.1 mmol/L (0.4-2.0)
[2022-10-08 16:43] LABS: CREATININE 2.2 mg/dL (0.55-1.3)
[2022-10-08 16:44] LABS: PHOSPHOROUS 4.2 mg/dL (2.5-4.9); SGPT/ALT 27 U/L (13-61)
[2022-10-08 16:45] LABS: TOT PROT 6.9 g/dl (6.4-8.2)
[2022-10-08 16:46] LABS: BILIRUBIN,TOTAL 0.4 mg/dL (0.2-1)
[2022-10-08 16:47] LABS: ALK PHOS 233 U/L (45-117)
[2022-10-08 16:49] LABS: SGOT/AST 16 U/L (15-37)
[2022-10-08 17:05] LABS: BLOOD UREA NITROGEN 108.7 mg/dL (7-18); N-TERMINAL BNP 39500.9 pg/ml (5-450)
[2022-10-08] MEDS ORDERED: SODIUM CHLORIDE 0.9% 500 ML INFUS.BAG IV ONE (17:25)
[2022-10-08] MEDS: SODIUM CHLORIDE 1,000 ML IV SCH ×2 (21:12→23:34)
[2022-10-09] MEDS ORDERED: FUROSEMIDE 40 MG TABLET (FP) PO SCH (00:15)
[2022-10-09] MEDS ORDERED: FUROSEMIDE 20 MG TABLET (FP) PO SCH (00:15)
[2022-10-09] MEDS ORDERED: SODIUM CHLORIDE 1,000 ML IV SCH (03:15)
[2022-10-09] MEDS: FERROUS SO4 300 MG/5 ML ORAL SOLN UNIT DOSE CUPS PO SCH ×3 (06:07→21:47)
[2022-10-09 07:50] LABS: HEMATOCRIT 21.1 % (32.4-45.2); MCH 27.7 pg (25.7-33.7); MCHC 33.4 g/dl (32.0-36.0); MEAN CELL VOLUME 82.9 fl (80-96); MEAN PLT VOLUME 9.6 fl (7.5-11.1); PLATELET COUNT 156 10^3/uL (134-434); RBC 2.54 M/mm3 (3.60-5.2); RDW 20.5 % (11.6-15.6); WHITE BLOOD COUNT 6.6 K/mm3 (4.0-10.0)
[2022-10-09 08:20] LABS: CHLORIDE 102 mmol/L (98-107); POTASSIUM 3.9 mmol/L (3.5-5.1); SODIUM 137 mmol/L (136-145)
[2022-10-09 08:24] LABS: ALBUMIN 1.7 g/dl (3.4-5.0); ANION GAP 6 MMOL/L (8-16); CALCIUM 8.3 mg/dL (8.5-10.1); CO2 28 mmol/L (21-32); GLUCOSE,RANDOM 93 mg/dL (74-106); MAGNESIUM 2.1 mg/dL (1.8-2.4)
[2022-10-09 08:27] LABS: CREATININE 2.1 mg/dL (0.55-1.3); PHOSPHOROUS 3.3 mg/dL (2.5-4.9); SGOT/AST 10 U/L (15-37); SGPT/ALT 20 U/L (13-61)
[2022-10-09 08:28] LABS: BILIRUBIN,TOTAL 0.4 mg/dL (0.2-1)
[2022-10-09 08:29] LABS: TOT PROT 6.2 g/dl (6.4-8.2)
[2022-10-09 08:39] LABS: ALK PHOS 180 U/L (45-117)
[2022-10-09 09:39] LABS: IRON SERUM 23 ug/dL (50-175); TOTAL IRON BINDING CAPACITY 169 ug/dL (250-450)
[2022-10-09] MEDS ORDERED: METOPROLOL TARTRATE 50 MG TABLET (FP) PEG SCH (10:00)
[2022-10-09] MEDS: ESCITALOPRAM OXALATE 10 MG TABLET PEG SCH (10:12)
[2022-10-09] MEDS: FAMOTIDINE 20 MG TABLET PEG SCH (10:12)
[2022-10-09] MEDS: LACTOBACILLUS ACIDOPHILUS 1 TABLET PEG SCH (10:13)
[2022-10-09 10:18] LABS: RETICULOCYTES 1.68 % (0.5-1.5)
[2022-10-09] MEDS: ASCORBIC ACID 500 MG TABLET (FP) PEG SCH (10:21)
[2022-10-09] MEDS: HEPARIN NA (PORCINE) 5,000 UNITS/ML 1ML VIAL SQ SCH (21:47)
[2022-10-09] MEDS: MELATONIN 5 MG TABLETS PEG SCH (21:47)
[2022-10-09] MEDS: ATORVASTATIN CA 20 MG TABLET (FP) PEG SCH (21:47)
[2022-10-10] MEDS: FERROUS SO4 300 MG/5 ML ORAL SOLN UNIT DOSE CUPS PO SCH ×3 (05:43→21:39)
[2022-10-10] MEDS: HEPARIN NA (PORCINE) 5,000 UNITS/ML 1ML VIAL SQ SCH ×3 (05:43→21:39)
[2022-10-10 05:55] LABS: CHLORIDE 102 mmol/L (98-107); POTASSIUM 3.9 mmol/L (3.5-5.1); SODIUM 138 mmol/L (136-145)
[2022-10-10 05:57] LABS: ANION GAP 8 MMOL/L (8-16); CALCIUM 8.4 mg/dL (8.5-10.1); CO2 28 mmol/L (21-32)
[2022-10-10 05:58] LABS: GLUCOSE,RANDOM 97 mg/dL (74-106); MAGNESIUM 2.2 mg/dL (1.8-2.4)
[2022-10-10 06:01] LABS: CREATININE 2.2 mg/dL (0.55-1.3); PHOSPHOROUS 3.2 mg/dL (2.5-4.9)
[2022-10-10 06:05] LABS: BLOOD UREA NITROGEN 109.9 mg/dL (7-18)
[2022-10-10 06:42] LABS: BASO % 0.6 % (0-2.0); EOS % 2.8 % (0-4.5); HEMATOCRIT 24.2 % (32.4-45.2); HEMOGLOBIN 8.2 GM/dL (10.7-15.3); MCH 27.8 pg (25.7-33.7); MCHC 33.7 g/dl (32.0-36.0); MEAN CELL VOLUME 82.5 fl (80-96); MEAN PLT VOLUME 9.8 fl (7.5-11.1); MONO % 4.4 % (3.8-10.2); NEUT % 57.2 % (42.8-82.8); PLATELET COUNT 200 10^3/uL (134-434); RBC 2.93 M/mm3 (3.60-5.2); RDW 20.8 % (11.6-15.6); WHITE BLOOD COUNT 6.8 K/mm3 (4.0-10.0)
[2022-10-10] MEDS: ESCITALOPRAM OXALATE 10 MG TABLET PEG SCH (09:41)
[2022-10-10] MEDS: VITAMIN B COMP W-C 1 EA TABLET (NEPHRO-VITE) PO SCH (09:41)
[2022-10-10] MEDS: LACTOBACILLUS ACIDOPHILUS 1 TABLET PEG SCH (09:41)
[2022-10-10] MEDS: ASCORBIC ACID 500 MG TABLET (FP) PEG SCH (09:41)
[2022-10-10] MEDS: ZINC SULFATE 220 MG CAPSULE (FP) PO SCH (09:42)
[2022-10-10] MEDS: METOPROLOL TARTRATE 50 MG TABLET (FP) PEG SCH ×2 (09:42→21:39)
[2022-10-10] MEDS: FAMOTIDINE 20 MG TABLET PEG SCH (09:42)
[2022-10-10 10:01] LABS: ANISOCYTOSIS 1+; MACROCYTOSIS 0
[2022-10-10] MEDS: ATORVASTATIN CA 20 MG TABLET (FP) PEG SCH (21:39)
[2022-10-10] MEDS: MELATONIN 5 MG TABLETS PEG SCH (21:39)
[2022-10-11] MEDS: HEPARIN NA (PORCINE) 5,000 UNITS/ML 1ML VIAL SQ SCH ×3 (06:06→21:17)
[2022-10-11] MEDS: FERROUS SO4 300 MG/5 ML ORAL SOLN UNIT DOSE CUPS PO SCH ×3 (06:06→21:17)
[2022-10-11 07:34] LABS: BASO % 0.8 % (0-2.0); EOS % 3.6 % (0-4.5); LYMPH % 23.4 % (8-40); MCH 27.6 pg (25.7-33.7); MCHC 33.3 g/dl (32.0-36.0); MEAN CELL VOLUME 82.9 fl (80-96); MEAN PLT VOLUME 9.2 fl (7.5-11.1); MONO % 5.1 % (3.8-10.2); NEUT % 67.1 % (42.8-82.8); PLATELET COUNT 173 10^3/uL (134-434); RBC 2.54 M/mm3 (3.60-5.2); RDW 20.9 % (11.6-15.6)
[2022-10-11 07:49] LABS: POTASSIUM 3.7 mmol/L (3.5-5.1)
[2022-10-11 07:53] LABS: BLOOD UREA NITROGEN 97.2 mg/dL (7-18); CALCIUM 8.2 mg/dL (8.5-10.1)
[2022-10-11 07:56] LABS: CREATININE 2.1 mg/dL (0.55-1.3)
[2022-10-11] MEDS: ASCORBIC ACID 500 MG TABLET (FP) PEG SCH (09:36)
[2022-10-11] MEDS: ESCITALOPRAM OXALATE 10 MG TABLET PEG SCH (09:37)
[2022-10-11] MEDS: METOPROLOL TARTRATE 50 MG TABLET (FP) PEG SCH ×2 (09:37→21:17)
[2022-10-11] MEDS: LACTOBACILLUS ACIDOPHILUS 1 TABLET PEG SCH (09:37)
[2022-10-11] MEDS: FAMOTIDINE 20 MG TABLET PEG SCH (09:37)
[2022-10-11] MEDS: ZINC SULFATE 220 MG CAPSULE (FP) PO SCH (09:37)
[2022-10-11] MEDS: VITAMIN B COMP W-C 1 EA TABLET (NEPHRO-VITE) PO SCH (09:37)
[2022-10-11] MEDS: MELATONIN 5 MG TABLETS PEG SCH (21:17)
[2022-10-11] MEDS: ATORVASTATIN CA 20 MG TABLET (FP) PEG SCH (21:17)
[2022-10-12] MEDS: FERROUS SO4 300 MG/5 ML ORAL SOLN UNIT DOSE CUPS PO SCH ×3 (05:24→22:08)
[2022-10-12] MEDS: HEPARIN NA (PORCINE) 5,000 UNITS/ML 1ML VIAL SQ SCH ×3 (05:24→22:08)
[2022-10-12 06:58] LABS: HEMATOCRIT 22.3 % (32.4-45.2); HEMOGLOBIN 7.5 GM/dL (10.7-15.3); MCH 27.9 pg (25.7-33.7); MCHC 33.6 g/dl (32.0-36.0); MEAN CELL VOLUME 83.1 fl (80-96); MEAN PLT VOLUME 9.4 fl (7.5-11.1); PLATELET COUNT 186 10^3/uL (134-434); RBC 2.69 M/mm3 (3.60-5.2); RDW 20.6 % (11.6-15.6); WHITE BLOOD COUNT 5.3 K/mm3 (4.0-10.0)
[2022-10-12 07:15] LABS: BLOOD UREA NITROGEN 94.6 mg/dL (7-18); MAGNESIUM 2.2 mg/dL (1.8-2.4)
[2022-10-12 07:18] LABS: CREATININE 2.1 mg/dL (0.55-1.3); PHOSPHOROUS 3.1 mg/dL (2.5-4.9)
[2022-10-12] MEDS: LACTOBACILLUS ACIDOPHILUS 1 TABLET PEG SCH (09:43)
[2022-10-12] MEDS: FAMOTIDINE 20 MG TABLET PEG SCH (09:44)
[2022-10-12] MEDS: ZINC SULFATE 220 MG CAPSULE (FP) PO SCH (09:44)
[2022-10-12] MEDS: ASCORBIC ACID 500 MG TABLET (FP) PEG SCH (09:44)
[2022-10-12] MEDS: ESCITALOPRAM OXALATE 10 MG TABLET PEG SCH (09:44)
[2022-10-12] MEDS: VITAMIN B COMP W-C 1 EA TABLET (NEPHRO-VITE) PO SCH (09:44)
[2022-10-12] MEDS ORDERED: QUEtiapine FUMARATE 25 MG TABLET GT ONE (21:23)
[2022-10-12] MEDS: METOPROLOL TARTRATE 25 MG TABLET (FP) PEG SCH ×2 (22:00→22:08)
[2022-10-12] MEDS: MELATONIN 5 MG TABLETS PEG SCH (22:08)
[2022-10-12] MEDS: ATORVASTATIN CA 20 MG TABLET (FP) PEG SCH (22:54)
[2022-10-13] MEDS: HEPARIN NA (PORCINE) 5,000 UNITS/ML 1ML VIAL SQ SCH ×3 (05:57→21:52)
[2022-10-13] MEDS: FERROUS SO4 300 MG/5 ML ORAL SOLN UNIT DOSE CUPS PO SCH ×2 (05:57→14:15)
[2022-10-13 07:09] LABS: POTASSIUM 4.2 mmol/L (3.5-5.1)
[2022-10-13 07:15] LABS: CALCIUM 8.1 mg/dL (8.5-10.1)
[2022-10-13 07:16] LABS: BLOOD UREA NITROGEN 92.2 mg/dL (7-18)
[2022-10-13 07:19] LABS: CREATININE 2.1 mg/dL (0.55-1.3)
[2022-10-13] MEDS: ZINC SULFATE 220 MG CAPSULE (FP) PO SCH (11:00)
[2022-10-13] MEDS: METOPROLOL TARTRATE 25 MG TABLET (FP) PEG SCH ×2 (11:00→21:13)
[2022-10-13] MEDS: ASCORBIC ACID 500 MG TABLET (FP) PEG SCH (11:00)
[2022-10-13] MEDS: LACTOBACILLUS ACIDOPHILUS 1 TABLET PEG SCH (11:00)
[2022-10-13] MEDS: VITAMIN B COMP W-C 1 EA TABLET (NEPHRO-VITE) PO SCH (11:00)
[2022-10-13] MEDS: FAMOTIDINE 20 MG TABLET PEG SCH (11:00)
[2022-10-13] MEDS: ESCITALOPRAM OXALATE 10 MG TABLET PEG SCH (11:00)
[2022-10-13 13:42] VITALS: BMI 43.8
[2022-10-13] MEDS: AMINO ACIDS/PROTEIN HYDROLYS 30 ML LIQUID.PKT PEG SCH (17:47)
[2022-10-13] MEDS: FERROUS SO4 300 MG/5 ML ORAL SOLN UNIT DOSE CUPS PEG SCH (21:52)
[2022-10-13] MEDS: ATORVASTATIN CA 20 MG TABLET (FP) PEG SCH (21:52)
[2022-10-13] MEDS: MELATONIN 5 MG TABLETS PEG SCH (21:52)
[2022-10-14] MEDS: HEPARIN NA (PORCINE) 5,000 UNITS/ML 1ML VIAL SQ SCH ×3 (06:34→21:33)
[2022-10-14] MEDS: FERROUS SO4 300 MG/5 ML ORAL SOLN UNIT DOSE CUPS PEG SCH ×3 (06:34→21:33)
[2022-10-14] MEDS: AMINO ACIDS/PROTEIN HYDROLYS 30 ML LIQUID.PKT PEG SCH ×2 (07:59→16:42)
[2022-10-14] MEDS: ESCITALOPRAM OXALATE 10 MG TABLET PEG SCH (08:59)
[2022-10-14] MEDS: FAMOTIDINE 20 MG TABLET PEG SCH (09:00)
[2022-10-14] MEDS: LACTOBACILLUS ACIDOPHILUS 1 TABLET PEG SCH (09:00)
[2022-10-14] MEDS: ASCORBIC ACID 500 MG TABLET (FP) PEG SCH (09:00)
[2022-10-14] MEDS: VITAMIN B COMP W-C 1 EA TABLET (NEPHRO-VITE) PEG SCH (09:01)
[2022-10-14] MEDS: METOPROLOL TARTRATE 25 MG TABLET (FP) PEG SCH ×2 (09:01→21:34)
[2022-10-14] MEDS: ZINC SULFATE 220 MG CAPSULE (FP) PEG SCH (09:01)
[2022-10-14 12:25] LABS: HEMATOCRIT 23.8 % (32.4-45.2); HEMOGLOBIN 7.7 GM/dL (10.7-15.3); MCH 27.2 pg (25.7-33.7); MCHC 32.3 g/dl (32.0-36.0); MEAN CELL VOLUME 84.3 fl (80-96); MEAN PLT VOLUME 9.2 fl (7.5-11.1); PLATELET COUNT 192 10^3/uL (134-434); RBC 2.83 M/mm3 (3.60-5.2); WHITE BLOOD COUNT 6.9 K/mm3 (4.0-10.0)
[2022-10-14 12:47] LABS: POTASSIUM 4.2 mmol/L (3.5-5.1)
[2022-10-14 12:50] LABS: CALCIUM 8.5 mg/dL (8.5-10.1); MAGNESIUM 2.4 mg/dL (1.8-2.4)
[2022-10-14 12:54] LABS: CREATININE 2.1 mg/dL (0.55-1.3); PHOSPHOROUS 3.6 mg/dL (2.5-4.9)
[2022-10-14] MEDS ORDERED: IRON SUCROSE INJECTION 100 MG in SODIUM CHLORIDE 95 ML IVPB ONE (14:00)
[2022-10-14] MEDS ORDERED: PIPERACILLIN/TAZOB 2.25 GM 2.25 GM in DEXTROSE 5%-WATER - 50 ML IVPB SCH (14:45)
[2022-10-14] MEDS ORDERED: VANCOMYCIN/WATER FOR INJ (PEG) 1,000 MG/200 ML BAG IVPB ONE (15:00)
[2022-10-14] MEDS: MELATONIN 5 MG TABLETS PEG SCH (21:33)
[2022-10-14] MEDS: ATORVASTATIN CA 20 MG TABLET (FP) PEG SCH (21:33)
[2022-10-14] MEDS: PIPERACILLIN/TAZOB 2.25 GM 2.25 GM in DEXTROSE 5%-WATER - 50 ML IVPB SCH (22:22)
[2022-10-15] MEDS: HEPARIN NA (PORCINE) 5,000 UNITS/ML 1ML VIAL SQ SCH ×3 (06:09→21:34)
[2022-10-15] MEDS: FERROUS SO4 300 MG/5 ML ORAL SOLN UNIT DOSE CUPS PEG SCH ×3 (06:09→21:34)
[2022-10-15] MEDS: PIPERACILLIN/TAZOB 2.25 GM 2.25 GM in DEXTROSE 5%-WATER - 50 ML IVPB SCH ×3 (06:10→22:14)
[2022-10-15 06:41] LABS: HEMATOCRIT 24.7 % (32.4-45.2); HEMOGLOBIN 8.2 GM/dL (10.7-15.3); MCH 27.9 pg (25.7-33.7); MCHC 33.3 g/dl (32.0-36.0); MEAN CELL VOLUME 83.9 fl (80-96); MEAN PLT VOLUME 8.9 fl (7.5-11.1); PLATELET COUNT 199 10^3/uL (134-434); RBC 2.95 M/mm3 (3.60-5.2); RDW 21.1 % (11.6-15.6); WHITE BLOOD COUNT 7.3 K/mm3 (4.0-10.0)
[2022-10-15 06:55] LABS: POTASSIUM 3.8 mmol/L (3.5-5.1)
[2022-10-15 07:01] LABS: CALCIUM 8.3 mg/dL (8.5-10.1)
[2022-10-15 07:02] LABS: BLOOD UREA NITROGEN 89.1 mg/dL (7-18); MAGNESIUM 2.2 mg/dL (1.8-2.4)
[2022-10-15 07:03] LABS: PHOSPHOROUS 3.8 mg/dL (2.5-4.9)
[2022-10-15 07:04] LABS: BILIRUBIN,TOTAL 0.4 mg/dL (0.2-1); TOT PROT 6.8 g/dl (6.4-8.2)
[2022-10-15 07:05] LABS: CREATININE 2.2 mg/dL (0.55-1.3)
[2022-10-15] MEDS: AMINO ACIDS/PROTEIN HYDROLYS 30 ML LIQUID.PKT PEG SCH ×2 (09:00→17:47)
[2022-10-15] MEDS: VITAMIN B COMP W-C 1 EA TABLET (NEPHRO-VITE) PEG SCH (09:07)
[2022-10-15] MEDS: METOPROLOL TARTRATE 25 MG TABLET (FP) PEG SCH ×2 (09:07→21:34)
[2022-10-15] MEDS: ESCITALOPRAM OXALATE 10 MG TABLET PEG SCH (09:07)
[2022-10-15] MEDS: ZINC SULFATE 220 MG CAPSULE (FP) PEG SCH (09:07)
[2022-10-15] MEDS: LACTOBACILLUS ACIDOPHILUS 1 TABLET PEG SCH (09:07)
[2022-10-15] MEDS: FAMOTIDINE 20 MG TABLET PEG SCH (09:08)
[2022-10-15] MEDS: ASCORBIC ACID 500 MG TABLET (FP) PEG SCH (09:08)
[2022-10-15 12:08] LABS: ALBUMIN % 35.6 % (.); ALPHA-1 FOR UPE 1.8 % (.)
[2022-10-15] MEDS ORDERED: IRON SUCROSE INJECTION 100 MG in SODIUM CHLORIDE 95 ML IVPB ONE (13:00)
[2022-10-15] MEDS: MELATONIN 5 MG TABLETS PEG SCH (21:34)
[2022-10-15] MEDS: ATORVASTATIN CA 20 MG TABLET (FP) PEG SCH (21:34)
[2022-10-16] MEDS: PIPERACILLIN/TAZOB 2.25 GM 2.25 GM in DEXTROSE 5%-WATER - 50 ML IVPB SCH ×3 (06:05→22:10)
[2022-10-16] MEDS: FERROUS SO4 300 MG/5 ML ORAL SOLN UNIT DOSE CUPS PEG SCH ×3 (06:05→21:39)
[2022-10-16] MEDS: HEPARIN NA (PORCINE) 5,000 UNITS/ML 1ML VIAL SQ SCH ×2 (06:05→14:25)
[2022-10-16 07:18] LABS: HEMATOCRIT 26.2 % (32.4-45.2); HEMOGLOBIN 8.6 GM/dL (10.7-15.3); MCHC 32.8 g/dl (32.0-36.0); MEAN CELL VOLUME 85.5 fl (80-96); MEAN PLT VOLUME 8.7 fl (7.5-11.1); PLATELET COUNT 210 10^3/uL (134-434); RBC 3.07 M/mm3 (3.60-5.2); RDW 20.8 % (11.6-15.6); WHITE BLOOD COUNT 9.6 K/mm3 (4.0-10.0)
[2022-10-16 07:23] LABS: POTASSIUM 3.7 mmol/L (3.5-5.1)
[2022-10-16 07:25] LABS: ALBUMIN 2.2 g/dl (3.4-5.0); CALCIUM 8.2 mg/dL (8.5-10.1)
[2022-10-16 07:26] LABS: BLOOD UREA NITROGEN 83.8 mg/dL (7-18); MAGNESIUM 2.3 mg/dL (1.8-2.4)
[2022-10-16 07:28] LABS: PHOSPHOROUS 4.8 mg/dL (2.5-4.9)
[2022-10-16 07:30] LABS: BILIRUBIN,TOTAL 0.4 mg/dL (0.2-1); TOT PROT 7.3 g/dl (6.4-8.2)
[2022-10-16] MEDS: LACTOBACILLUS ACIDOPHILUS 1 TABLET PEG SCH (09:50)
[2022-10-16] MEDS: ASCORBIC ACID 500 MG TABLET (FP) PEG SCH (09:50)
[2022-10-16] MEDS: VITAMIN B COMP W-C 1 EA TABLET (NEPHRO-VITE) PEG SCH (09:50)
[2022-10-16] MEDS: AMINO ACIDS/PROTEIN HYDROLYS 30 ML LIQUID.PKT PEG SCH ×2 (09:50→17:54)
[2022-10-16] MEDS: METOPROLOL TARTRATE 25 MG TABLET (FP) PEG SCH ×2 (09:51→21:45)
[2022-10-16] MEDS: ZINC SULFATE 220 MG CAPSULE (FP) PEG SCH (09:51)
[2022-10-16] MEDS: FAMOTIDINE 20 MG TABLET PEG SCH (09:51)
[2022-10-16] MEDS: ESCITALOPRAM OXALATE 10 MG TABLET PEG SCH (09:51)
[2022-10-16] MEDS: MELATONIN 5 MG TABLETS PEG SCH (21:40)
[2022-10-16] MEDS: ATORVASTATIN CA 20 MG TABLET (FP) PEG SCH (21:44)
[2022-10-17] MEDS ORDERED: EPINEPHrine 1:10,000 (P-F SYR) 1 MG/10 ML DISP.SYRIN ONE (04:00)
[2022-10-17] MEDS: PIPERACILLIN/TAZOB 2.25 GM 2.25 GM in DEXTROSE 5%-WATER - 50 ML IVPB SCH (06:13)
[2022-10-17] MEDS: FERROUS SO4 300 MG/5 ML ORAL SOLN UNIT DOSE CUPS PEG SCH ×3 (06:14→21:31)
[2022-10-17 07:21] LABS: HEMATOCRIT 23.2 % (32.4-45.2); HEMOGLOBIN 7.9 GM/dL (10.7-15.3); MCH 28.6 pg (25.7-33.7); MCHC 33.9 g/dl (32.0-36.0); MEAN CELL VOLUME 84.2 fl (80-96); MEAN PLT VOLUME 8.7 fl (7.5-11.1); PLATELET COUNT 187 10^3/uL (134-434); RBC 2.76 M/mm3 (3.60-5.2); RDW 21.3 % (11.6-15.6); WHITE BLOOD COUNT 7.3 K/mm3 (4.0-10.0)
[2022-10-17 07:55] LABS: POTASSIUM 3.6 mmol/L (3.5-5.1)
[2022-10-17 08:00] LABS: ALBUMIN 1.8 g/dl (3.4-5.0); BLOOD UREA NITROGEN 78.3 mg/dL (7-18); MAGNESIUM 2.2 mg/dL (1.8-2.4)
[2022-10-17 08:03] LABS: CREATININE 2.1 mg/dL (0.55-1.3); PHOSPHOROUS 3.8 mg/dL (2.5-4.9)
[2022-10-17 08:04] LABS: BILIRUBIN,TOTAL 0.6 mg/dL (0.2-1); TOT PROT 6.7 g/dl (6.4-8.2)
[2022-10-17] MEDS: AMINO ACIDS/PROTEIN HYDROLYS 30 ML LIQUID.PKT PEG SCH ×2 (08:55→17:20)
[2022-10-17] MEDS: FAMOTIDINE 20 MG TABLET PEG SCH (09:02)
[2022-10-17] MEDS: LACTOBACILLUS ACIDOPHILUS 1 TABLET PEG SCH (09:02)
[2022-10-17] MEDS: METOPROLOL TARTRATE 25 MG TABLET (FP) PEG SCH ×2 (09:02→21:32)
[2022-10-17] MEDS: ASCORBIC ACID 500 MG TABLET (FP) PEG SCH (09:02)
[2022-10-17] MEDS: VITAMIN B COMP W-C 1 EA TABLET (NEPHRO-VITE) PEG SCH (09:02)
[2022-10-17] MEDS: ZINC SULFATE 220 MG CAPSULE (FP) PEG SCH (09:03)
[2022-10-17] MEDS: ESCITALOPRAM OXALATE 10 MG TABLET PEG SCH (09:04)
[2022-10-17] MEDS ORDERED: ERTAPENEM SODIUM 1 GM in SODIUM CHLORIDE 50 ML IVPB SCH (10:00)
[2022-10-17] MEDS: AMPICILLIN - 1 GM in SODIUM CHLORIDE 100 ML IVPB SCH ×3 (10:50→20:49)
[2022-10-17] MEDS: MELATONIN 5 MG TABLETS PEG SCH (21:31)
[2022-10-17] MEDS: ATORVASTATIN CA 20 MG TABLET (FP) PEG SCH (21:31)
[2022-10-18] MEDS: FERROUS SO4 300 MG/5 ML ORAL SOLN UNIT DOSE CUPS PEG SCH ×3 (06:05→21:16)
[2022-10-18] MEDS: AMPICILLIN - 1 GM in SODIUM CHLORIDE 100 ML IVPB SCH ×3 (08:40→17:32)
[2022-10-18] MEDS: AMINO ACIDS/PROTEIN HYDROLYS 30 ML LIQUID.PKT PEG SCH ×2 (09:00→17:32)
[2022-10-18] MEDS: FAMOTIDINE 20 MG TABLET PEG SCH (09:39)
[2022-10-18] MEDS: ASCORBIC ACID 500 MG TABLET (FP) PEG SCH (09:39)
[2022-10-18] MEDS: VITAMIN B COMP W-C 1 EA TABLET (NEPHRO-VITE) PEG SCH (09:39)
[2022-10-18] MEDS: METOPROLOL TARTRATE 25 MG TABLET (FP) PEG SCH ×2 (09:39→21:16)
[2022-10-18] MEDS: ESCITALOPRAM OXALATE 10 MG TABLET PEG SCH (09:39)
[2022-10-18] MEDS: ERTAPENEM SODIUM 0.5 GM in SODIUM CHLORIDE 50 ML IVPB SCH (09:40)
[2022-10-18] MEDS: LACTOBACILLUS ACIDOPHILUS 1 TABLET PEG SCH (09:40)
[2022-10-18] MEDS: ZINC SULFATE 220 MG CAPSULE (FP) PEG SCH (09:40)
[2022-10-18] MEDS ORDERED: IRON SUCROSE INJECTION 100 MG in SODIUM CHLORIDE 95 ML IVPB ONE (14:00)
[2022-10-18] MEDS ORDERED: AMPICILLIN - 1 GM in SODIUM CHLORIDE 100 ML IVPB SCH (20:00)
[2022-10-18] MEDS: MELATONIN 5 MG TABLETS PEG SCH (21:16)
[2022-10-18] MEDS: ATORVASTATIN CA 20 MG TABLET (FP) PEG SCH (21:16)
[2022-10-19] MEDS: AMPICILLIN - 1 GM in SODIUM CHLORIDE 100 ML IVPB SCH ×3 (02:11→17:01)
[2022-10-19] MEDS ORDERED: ALBUTEROL SULFATE 0.021% (0.63 MG/3 ML) VIAL.NEB NEB ONE (04:02)
[2022-10-19] MEDS ORDERED: ALBUTEROL SO4 0.083% IH SOL 2.5 MG/3 ML VIAL.NEB. NEB ONE (04:37)
[2022-10-19] MEDS: FERROUS SO4 300 MG/5 ML ORAL SOLN UNIT DOSE CUPS PEG SCH ×3 (06:21→21:19)
[2022-10-19] MEDS: AMINO ACIDS/PROTEIN HYDROLYS 30 ML LIQUID.PKT PEG SCH ×2 (08:14→17:00)
[2022-10-19] MEDS: LACTOBACILLUS ACIDOPHILUS 1 TABLET PEG SCH (09:13)
[2022-10-19] MEDS: ESCITALOPRAM OXALATE 10 MG TABLET PEG SCH (09:13)
[2022-10-19] MEDS: ZINC SULFATE 220 MG CAPSULE (FP) PEG SCH (09:13)
[2022-10-19] MEDS: ASCORBIC ACID 500 MG TABLET (FP) PEG SCH (09:13)
[2022-10-19] MEDS: METOPROLOL TARTRATE 25 MG TABLET (FP) PEG SCH ×2 (09:13→21:19)
[2022-10-19] MEDS: VITAMIN B COMP W-C 1 EA TABLET (NEPHRO-VITE) PEG SCH (09:13)
[2022-10-19] MEDS: FAMOTIDINE 20 MG TABLET PEG SCH (09:13)
[2022-10-19] MEDS: ERTAPENEM SODIUM 0.5 GM in SODIUM CHLORIDE 50 ML IVPB SCH (10:05)
[2022-10-19] MEDS ORDERED: CEFTAZIDIME/AVIBACTAM 1.25 GM in DEXTROSE 5%-WATER - 100 ML IVPB SCH (12:45)
[2022-10-19] MEDS: BANATROL PLUS POWDER PACKET PO SCH ×2 (13:18→21:19)
[2022-10-19] MEDS ORDERED: IRON SUCROSE INJECTION 100 MG in SODIUM CHLORIDE 95 ML IVPB ONE (15:11)
[2022-10-19] MEDS ORDERED: EPOETIN ALFA-EPBX 10,000 UNIT/ML VIAL SQ ONE (15:11)
[2022-10-19] MEDS: CEFTAZIDIME/AVIBACTAM 1.25 GM in DEXTROSE 5%-WATER - 100 ML IVPB SCH (17:02)
[2022-10-19] MEDS ORDERED: ACETAMINOPHEN 500 MG TABLET (FP) PO PRN (20:47)
[2022-10-19] MEDS: VANCOMYCIN 250 MG/5 ML ORAL SOLUTION PEG SCH (21:18)
[2022-10-19] MEDS: ATORVASTATIN CA 20 MG TABLET (FP) PEG SCH (21:19)
[2022-10-19] MEDS: ACETAMINOPHEN 650 MG/20.3 ML ORAL SOLUTION (CUPS) GT PRN (21:19)
[2022-10-19] MEDS: MELATONIN 5 MG TABLETS PEG SCH (21:19)
[2022-10-19] MEDS: HEPARIN NA (PORCINE) 5,000 UNITS/ML 1ML VIAL SQ SCH (21:19)
[2022-10-19] MEDS: ALBUTEROL SULFATE 0.021% (0.63 MG/3 ML) VIAL.NEB NEB PRN (21:55)
[2022-10-20] MEDS: AMPICILLIN - 1 GM in SODIUM CHLORIDE 100 ML IVPB SCH ×3 (02:23→17:54)
[2022-10-20] MEDS: VANCOMYCIN 250 MG/5 ML ORAL SOLUTION PEG SCH ×4 (02:23→17:55)
[2022-10-20] MEDS: CEFTAZIDIME/AVIBACTAM 1.25 GM in DEXTROSE 5%-WATER - 100 ML IVPB SCH ×2 (03:21→11:10)
[2022-10-20] MEDS: HEPARIN NA (PORCINE) 5,000 UNITS/ML 1ML VIAL SQ SCH ×3 (06:41→21:41)
[2022-10-20] MEDS: FERROUS SO4 300 MG/5 ML ORAL SOLN UNIT DOSE CUPS PEG SCH ×3 (06:41→21:40)
[2022-10-20] MEDS: BANATROL PLUS POWDER PACKET PO SCH ×3 (06:41→21:40)
[2022-10-20 06:58] LABS: HEMATOCRIT 25.1 % (32.4-45.2); HEMOGLOBIN 8.2 GM/dL (10.7-15.3); MCH 28.3 pg (25.7-33.7); MCHC 32.7 g/dl (32.0-36.0); MEAN CELL VOLUME 86.4 fl (80-96); MEAN PLT VOLUME 8.9 fl (7.5-11.1); PLATELET COUNT 215 10^3/uL (134-434); RBC 2.91 M/mm3 (3.60-5.2); RDW 22.2 % (11.6-15.6); WHITE BLOOD COUNT 6.7 K/mm3 (4.0-10.0)
[2022-10-20 07:13] LABS: POTASSIUM 3.6 mmol/L (3.5-5.1)
[2022-10-20 07:15] LABS: ALBUMIN 2.1 g/dl (3.4-5.0); CALCIUM 8.2 mg/dL (8.5-10.1)
[2022-10-20 07:18] LABS: CREATININE 1.7 mg/dL (0.55-1.3)
[2022-10-20 07:20] LABS: BILIRUBIN,TOTAL 0.3 mg/dL (0.2-1); TOT PROT 7.2 g/dl (6.4-8.2)
[2022-10-20] MEDS: AMINO ACIDS/PROTEIN HYDROLYS 30 ML LIQUID.PKT PEG SCH ×2 (08:53→17:54)
[2022-10-20] MEDS: METOPROLOL TARTRATE 25 MG TABLET (FP) PEG SCH ×2 (10:58→21:41)
[2022-10-20] MEDS: FAMOTIDINE 20 MG TABLET PEG SCH (10:59)
[2022-10-20] MEDS: ZINC SULFATE 220 MG CAPSULE (FP) PEG SCH (10:59)
[2022-10-20] MEDS: LACTOBACILLUS ACIDOPHILUS 1 TABLET PEG SCH (10:59)
[2022-10-20] MEDS: VITAMIN B COMP W-C 1 EA TABLET (NEPHRO-VITE) PEG SCH (10:59)
[2022-10-20] MEDS: ASCORBIC ACID 500 MG TABLET (FP) PEG SCH (10:59)
[2022-10-20] MEDS: ESCITALOPRAM OXALATE 10 MG TABLET PEG SCH (11:00)
[2022-10-20] MEDS ORDERED: VANCOMYCIN 250 MG/5 ML ORAL SOLUTION PEG SCH (18:42)
[2022-10-20] MEDS ORDERED: ACETYLCYSTEINE 20% 200MG/ML 30 ML VIAL *FOR ORAL / INH USE ONLY NEB SCH (20:00)
[2022-10-20] MEDS: ATORVASTATIN CA 20 MG TABLET (FP) PEG SCH (21:41)
[2022-10-20] MEDS: MELATONIN 5 MG TABLETS PEG SCH (21:41)
[2022-10-20] MEDS: ACETYLCYSTEINE 20% 200MG/ML 4 ML VIAL *FOR ORAL / INH USE ONLY NEB SCH (21:43)
[2022-10-20] MEDS: ALBUTEROL SULFATE 0.021% (0.63 MG/3 ML) VIAL.NEB NEB PRN (21:44)
[2022-10-21] MEDS: VANCOMYCIN 250 MG/5 ML ORAL SOLUTION PEG SCH ×5 (00:02→23:18)
[2022-10-21] MEDS: AMPICILLIN - 1 GM in SODIUM CHLORIDE 100 ML IVPB SCH ×3 (03:13→17:14)
[2022-10-21] MEDS: BANATROL PLUS POWDER PACKET PO SCH ×2 (05:23→17:11)
[2022-10-21] MEDS: FERROUS SO4 300 MG/5 ML ORAL SOLN UNIT DOSE CUPS PEG SCH ×3 (05:24→22:33)
[2022-10-21] MEDS: HEPARIN NA (PORCINE) 5,000 UNITS/ML 1ML VIAL SQ SCH ×3 (05:24→22:34)
[2022-10-21] MEDS: ACETYLCYSTEINE 20% 200MG/ML 4 ML VIAL *FOR ORAL / INH USE ONLY NEB SCH ×4 (07:55→20:45)
[2022-10-21 08:04] LABS: CALCIUM 8.5 mg/dL (8.5-10.1)
[2022-10-21 08:05] LABS: BLOOD UREA NITROGEN 65.4 mg/dL (7-18); MAGNESIUM 2.3 mg/dL (1.8-2.4)
[2022-10-21 08:08] LABS: CREATININE 1.6 mg/dL (0.55-1.3); PHOSPHOROUS 4.5 mg/dL (2.5-4.9)
[2022-10-21] MEDS: AMINO ACIDS/PROTEIN HYDROLYS 30 ML LIQUID.PKT PEG SCH ×2 (09:47→17:13)
[2022-10-21] MEDS: ESCITALOPRAM OXALATE 10 MG TABLET PEG SCH (09:48)
[2022-10-21] MEDS: LACTOBACILLUS ACIDOPHILUS 1 TABLET PEG SCH (09:48)
[2022-10-21] MEDS: METOPROLOL TARTRATE 25 MG TABLET (FP) PEG SCH ×2 (09:49→22:35)
[2022-10-21] MEDS: FAMOTIDINE 20 MG TABLET PEG SCH (09:49)
[2022-10-21] MEDS: VITAMIN B COMP W-C 1 EA TABLET (NEPHRO-VITE) PEG SCH (09:50)
[2022-10-21] MEDS: ZINC SULFATE 220 MG CAPSULE (FP) PEG SCH (09:52)
[2022-10-21] MEDS: ASCORBIC ACID 500 MG TABLET (FP) PEG SCH (09:52)
[2022-10-21] MEDS: ALBUTEROL SO4 0.083% IH SOL 2.5 MG/3 ML VIAL.NEB. NEB SCH ×3 (11:15→20:45)
[2022-10-21] MEDS: ACETAMINOPHEN 650 MG/20.3 ML ORAL SOLUTION (CUPS) GT PRN (11:43)
[2022-10-21] MEDS ORDERED: ACETAMINOPHEN 650 MG/20.3 ML ORAL SOLUTION (CUPS) GT PRN (19:54)
[2022-10-21] MEDS: BANATROL PLUS POWDER PACKET GT SCH (22:33)
[2022-10-21] MEDS: ATORVASTATIN CA 20 MG TABLET (FP) PEG SCH (22:35)
[2022-10-21] MEDS: MELATONIN 5 MG TABLETS PEG SCH (22:35)
[2022-10-21] MEDS: CEFTAZIDIME/AVIBACTAM 1.25 GM in DEXTROSE 5%-WATER - 100 ML IVPB SCH (23:30)
[2022-10-22] MEDS: AMPICILLIN - 1 GM in SODIUM CHLORIDE 100 ML IVPB SCH ×4 (02:02→18:15)
[2022-10-22] MEDS: HEPARIN NA (PORCINE) 5,000 UNITS/ML 1ML VIAL SQ SCH ×2 (05:55→13:51)
[2022-10-22] MEDS: VANCOMYCIN 250 MG/5 ML ORAL SOLUTION PEG SCH ×3 (05:55→18:16)
[2022-10-22] MEDS: BANATROL PLUS POWDER PACKET GT SCH ×2 (05:55→13:51)
[2022-10-22] MEDS: FERROUS SO4 300 MG/5 ML ORAL SOLN UNIT DOSE CUPS PEG SCH ×2 (06:49→13:51)
[2022-10-22] MEDS: CEFTAZIDIME/AVIBACTAM 1.25 GM in DEXTROSE 5%-WATER - 100 ML IVPB SCH (06:49)
[2022-10-22] MEDS: ACETYLCYSTEINE 20% 200MG/ML 4 ML VIAL *FOR ORAL / INH USE ONLY NEB SCH ×4 (07:50→20:45)
[2022-10-22] MEDS: ALBUTEROL SO4 0.083% IH SOL 2.5 MG/3 ML VIAL.NEB. NEB SCH ×4 (07:50→20:45)
[2022-10-22] MEDS ORDERED: AMINO ACIDS/PROTEIN HYDROLYS 30 ML LIQUID.PKT PEG SCH (08:00)
[2022-10-22] MEDS: METOPROLOL TARTRATE 25 MG TABLET (FP) PEG SCH (09:50)
[2022-10-22] MEDS: ASCORBIC ACID 500 MG TABLET (FP) PEG SCH (09:50)
[2022-10-22] MEDS: LACTOBACILLUS ACIDOPHILUS 1 TABLET PEG SCH (09:51)
[2022-10-22] MEDS: FAMOTIDINE 20 MG TABLET PEG SCH (09:51)
[2022-10-22] MEDS: VITAMIN B COMP W-C 1 EA TABLET (NEPHRO-VITE) PEG SCH (09:51)
[2022-10-22] MEDS: ESCITALOPRAM OXALATE 10 MG TABLET PEG SCH (09:51)
[2022-10-22] MEDS: ZINC SULFATE 220 MG CAPSULE (FP) PEG SCH (09:51)
[2022-10-22 11:30] LABS: BLOOD UREA NITROGEN 66.4 mg/dL (7-18); CALCIUM 8.5 mg/dL (8.5-10.1); MAGNESIUM 2.1 mg/dL (1.8-2.4)
[2022-10-22 11:34] LABS: CREATININE 1.6 mg/dL (0.55-1.3); PHOSPHOROUS 5.3 mg/dL (2.5-4.9)
[2022-10-22] MEDS: AMINO ACIDS/PROTEIN HYDROLYS 30 ML LIQUID.PKT PEG SCH (18:16)
[2022-10-22] MEDS: MELATONIN 5 MG TABLETS PEG SCH (21:45)
[2022-10-22] MEDS: ATORVASTATIN CA 20 MG TABLET (FP) PEG SCH (21:45)
[2022-10-23] MEDS: METOPROLOL TARTRATE 25 MG TABLET (FP) PEG SCH ×3 (01:49→22:39)
[2022-10-23] MEDS: FERROUS SO4 300 MG/5 ML ORAL SOLN UNIT DOSE CUPS PEG SCH ×4 (01:51→22:39)
[2022-10-23] MEDS: BANATROL PLUS POWDER PACKET GT SCH ×4 (01:56→22:39)
[2022-10-23] MEDS: HEPARIN NA (PORCINE) 5,000 UNITS/ML 1ML VIAL SQ SCH ×4 (02:05→22:39)
[2022-10-23] MEDS: VANCOMYCIN 250 MG/5 ML ORAL SOLUTION PEG SCH ×5 (02:05→23:28)
[2022-10-23] MEDS: CEFTAZIDIME/AVIBACTAM 1.25 GM in DEXTROSE 5%-WATER - 100 ML IVPB SCH ×2 (07:15→07:16)
[2022-10-23] MEDS: ACETYLCYSTEINE 20% 200MG/ML 4 ML VIAL *FOR ORAL / INH USE ONLY NEB SCH ×4 (08:11→20:32)
[2022-10-23] MEDS: ALBUTEROL SO4 0.083% IH SOL 2.5 MG/3 ML VIAL.NEB. NEB SCH ×4 (08:11→20:32)
[2022-10-23] MEDS: AMINO ACIDS/PROTEIN HYDROLYS 30 ML LIQUID.PKT PEG SCH ×3 (08:49→18:17)
[2022-10-23] MEDS: ESCITALOPRAM OXALATE 10 MG TABLET PEG SCH (09:48)
[2022-10-23] MEDS: FAMOTIDINE 20 MG TABLET PEG SCH (09:48)
[2022-10-23] MEDS: ZINC SULFATE 220 MG CAPSULE (FP) PEG SCH (09:49)
[2022-10-23] MEDS: LACTOBACILLUS ACIDOPHILUS 1 TABLET PEG SCH (09:49)
[2022-10-23] MEDS: VITAMIN B COMP W-C 1 EA TABLET (NEPHRO-VITE) PEG SCH (09:49)
[2022-10-23] MEDS: ASCORBIC ACID 500 MG TABLET (FP) PEG SCH (09:49)
[2022-10-23] MEDS: ATORVASTATIN CA 20 MG TABLET (FP) PEG SCH (22:39)
[2022-10-23] MEDS: MELATONIN 5 MG TABLETS PEG SCH (22:39)
[2022-10-24] MEDS: BANATROL PLUS POWDER PACKET GT SCH ×3 (06:49→22:13)
[2022-10-24] MEDS: FERROUS SO4 300 MG/5 ML ORAL SOLN UNIT DOSE CUPS PEG SCH ×3 (06:49→22:13)
[2022-10-24] MEDS: VANCOMYCIN 250 MG/5 ML ORAL SOLUTION PEG SCH ×4 (06:50→23:31)
[2022-10-24] MEDS: HEPARIN NA (PORCINE) 5,000 UNITS/ML 1ML VIAL SQ SCH ×3 (06:51→22:13)
[2022-10-24] MEDS: ALBUTEROL SO4 0.083% IH SOL 2.5 MG/3 ML VIAL.NEB. NEB SCH ×4 (08:05→20:33)
[2022-10-24] MEDS: ACETYLCYSTEINE 20% 200MG/ML 4 ML VIAL *FOR ORAL / INH USE ONLY NEB SCH ×4 (08:05→20:33)
[2022-10-24] MEDS ORDERED: METOCLOPRAMIDE HCL INJECTION 10 MG/2 ML VIAL IVPUSH ONE (10:10)
[2022-10-24] MEDS: ASCORBIC ACID 500 MG TABLET (FP) PEG SCH (10:18)
[2022-10-24] MEDS: LACTOBACILLUS ACIDOPHILUS 1 TABLET PEG SCH (10:18)
[2022-10-24] MEDS: AMINO ACIDS/PROTEIN HYDROLYS 30 ML LIQUID.PKT PEG SCH ×3 (10:18→17:33)
[2022-10-24] MEDS: ESCITALOPRAM OXALATE 10 MG TABLET PEG SCH (10:18)
[2022-10-24] MEDS: ZINC SULFATE 220 MG CAPSULE (FP) PEG SCH (10:18)
[2022-10-24] MEDS: METOPROLOL TARTRATE 25 MG TABLET (FP) PEG SCH ×2 (10:19→22:13)
[2022-10-24] MEDS: FAMOTIDINE 20 MG TABLET PEG SCH (10:19)
[2022-10-24] MEDS: VITAMIN B COMP W-C 1 EA TABLET (NEPHRO-VITE) PEG SCH (10:19)
[2022-10-24] MEDS: ATORVASTATIN CA 20 MG TABLET (FP) PEG SCH (22:14)
[2022-10-24] MEDS: MELATONIN 5 MG TABLETS PEG SCH (22:14)
[2022-10-25] MEDS: VANCOMYCIN 250 MG/5 ML ORAL SOLUTION PEG SCH ×3 (06:26→17:27)
[2022-10-25] MEDS: FERROUS SO4 300 MG/5 ML ORAL SOLN UNIT DOSE CUPS PEG SCH ×3 (06:27→21:57)
[2022-10-25] MEDS: HEPARIN NA (PORCINE) 5,000 UNITS/ML 1ML VIAL SQ SCH ×3 (06:27→22:00)
[2022-10-25] MEDS: BANATROL PLUS POWDER PACKET GT SCH ×3 (06:27→21:57)
[2022-10-25] MEDS: ALBUTEROL SO4 0.083% IH SOL 2.5 MG/3 ML VIAL.NEB. NEB SCH ×4 (07:45→19:40)
[2022-10-25] MEDS: ACETYLCYSTEINE 20% 200MG/ML 4 ML VIAL *FOR ORAL / INH USE ONLY NEB SCH ×4 (07:45→19:40)
[2022-10-25] MEDS: AMINO ACIDS/PROTEIN HYDROLYS 30 ML LIQUID.PKT PEG SCH ×3 (09:45→17:27)
[2022-10-25] MEDS: METOPROLOL TARTRATE 25 MG TABLET (FP) PEG SCH ×2 (11:21→21:57)
[2022-10-25] MEDS: LACTOBACILLUS ACIDOPHILUS 1 TABLET PEG SCH (11:22)
[2022-10-25] MEDS: FAMOTIDINE 20 MG TABLET PEG SCH (11:22)
[2022-10-25] MEDS: ESCITALOPRAM OXALATE 10 MG TABLET PEG SCH (11:22)
[2022-10-25] MEDS: VITAMIN B COMP W-C 1 EA TABLET (NEPHRO-VITE) PEG SCH (11:22)
[2022-10-25] MEDS: ASCORBIC ACID 500 MG TABLET (FP) PEG SCH (11:22)
[2022-10-25] MEDS: ZINC SULFATE 220 MG CAPSULE (FP) PEG SCH (11:23)
[2022-10-25] MEDS: ATORVASTATIN CA 20 MG TABLET (FP) PEG SCH (21:57)
[2022-10-25] MEDS: MELATONIN 5 MG TABLETS PEG SCH (21:57)
[2022-10-26] MEDS: VANCOMYCIN 250 MG/5 ML ORAL SOLUTION PEG SCH ×4 (00:20→17:40)
[2022-10-26] MEDS: BANATROL PLUS POWDER PACKET GT SCH ×2 (05:25→13:26)
[2022-10-26] MEDS: FERROUS SO4 300 MG/5 ML ORAL SOLN UNIT DOSE CUPS PEG SCH ×2 (05:25→16:00)
[2022-10-26] MEDS: HEPARIN NA (PORCINE) 5,000 UNITS/ML 1ML VIAL SQ SCH ×2 (05:26→13:22)
[2022-10-26] MEDS: ACETYLCYSTEINE 20% 200MG/ML 4 ML VIAL *FOR ORAL / INH USE ONLY NEB SCH ×3 (07:40→15:45)
[2022-10-26] MEDS: ALBUTEROL SO4 0.083% IH SOL 2.5 MG/3 ML VIAL.NEB. NEB SCH ×3 (07:40→15:45)
[2022-10-26] MEDS: AMINO ACIDS/PROTEIN HYDROLYS 30 ML LIQUID.PKT PEG SCH ×3 (09:33→16:45)
[2022-10-26 10:12] LABS: POTASSIUM 4.3 mmol/L (3.5-5.1)
[2022-10-26 10:13] LABS: BLOOD UREA NITROGEN 76.6 mg/dL (7-18); CALCIUM 8.7 mg/dL (8.5-10.1)
[2022-10-26 10:17] LABS: CREATININE 1.5 mg/dL (0.55-1.3)
[2022-10-26] MEDS: FAMOTIDINE 20 MG TABLET PEG SCH (10:44)
[2022-10-26] MEDS: ASCORBIC ACID 500 MG TABLET (FP) PEG SCH (10:44)
[2022-10-26] MEDS: ESCITALOPRAM OXALATE 10 MG TABLET PEG SCH (10:45)
[2022-10-26] MEDS: LACTOBACILLUS ACIDOPHILUS 1 TABLET PEG SCH (10:45)
[2022-10-26] MEDS: VITAMIN B COMP W-C 1 EA TABLET (NEPHRO-VITE) PEG SCH (10:45)
[2022-10-26] MEDS: METOPROLOL TARTRATE 25 MG TABLET (FP) PEG SCH (10:45)
[2022-10-26] MEDS: ZINC SULFATE 220 MG CAPSULE (FP) PEG SCH (10:45)
[2022-10-26 19:58] VITALS: BP 155/95; PULSE 79; RESP 12; TEMP 97.5
== END 2022-10-26 21:46 | DRG 207 ==
LOC: JER 15:04 → JERBED 18:42 → OBSVTOIN 20:31 → INTOOBSV 20:31 → OBSVTOIN 22:32 → J2W 22:52 → J5S 10-21 19:28
PROVIDERS: ADMIT Internal Medicine; ATTEND Internal Medicine
PROC: 5A1955Z Respiratory Ventilation, Greater than 96 Consecutive Hours (ICD-10-PCS; principal; 2022-10-10)
PROC: 05HD33Z Insertion of Infusion Device into Right Cephalic Vein, Percutaneous Approach (ICD-10-PCS; 2022-10-10)
PROC: B54MZZA Ultrasonography of Right Upper Extremity Veins, Guidance (ICD-10-PCS; 2022-10-10)
DX: J96.21 Acute and chronic respiratory failure with hypoxia (principal); I50.43 Acute on chronic combined systolic (congestive) and diastolic (congestive) heart failure; L89.153 Pressure ulcer of sacral region, stage 3; N17.9 Acute kidney failure, unspecified; Z68.42 Body mass index [BMI] 45.0-49.9, adult; J81.1 Chronic pulmonary edema; A04.72 Enterocolitis due to Clostridium difficile, not specified as recurrent; G93.49 Other encephalopathy; J96.22 Acute and chronic respiratory failure with hypercapnia; I11.0 Hypertensive heart disease with heart failure; E66.01 Morbid (severe) obesity due to excess calories; H70.90 Unspecified mastoiditis, unspecified ear; L89.612 Pressure ulcer of right heel, stage 2; J44.9 Chronic obstructive pulmonary disease, unspecified; J45.909 Unspecified asthma, uncomplicated; R94.5 Abnormal results of liver function studies; N20.0 Calculus of kidney; E78.5 Hyperlipidemia, unspecified; D64.9 Anemia, unspecified; E03.9 Hypothyroidism, unspecified; I48.91 Unspecified atrial fibrillation; G47.30 Sleep apnea, unspecified; R00.1 Bradycardia, unspecified; Z93.1 Gastrostomy status; Z93.0 Tracheostomy status
CPT/HCPCS: 0241U-QW; 36415; 70450-TC; 71045-TC-FY; 76775-TC; 80048; 80053; 80162; 82607; 82728; 82746; 82803; 82962; 83540; 83550; 83605; 83735; 83880; 84100; 84155; 84156; 84165; 84166; 84439; 84443; 84466; 84484; 85025; 85027; 85045; 85610; 85730; 86850; 86900; 86901; 87040; 87070; 87184; 87186; 87205; 87324; 87449; 87493; 87635; 93005; 93010; 94002; 94640; 97162-GP; 99285-25; G0378; J1644; J1756; Q5106

== ENCOUNTER 2022-12-05 19:21 | Inpatient (IN) | payer OTHER ==
[2022-12-05] MEDS ORDERED: VANCOMYCIN 1 GM in D5W (PRE-DOCKED) 1,000 MG/250 ML (RESTRICTED TO ID ONLY IVPB ONE (20:00)
[2022-12-05] MEDS ORDERED: MEROPENEM 1 GM in DEXTROSE 5%-WATER 100 ML IVPB ONE (20:01)
[2022-12-05 20:44] LABS: VENOUS BASE EXCESS 3.4 mmol/L (-2-2); VENOUS O2 SATURATION 96.8 % (70-80); VENOUS PCO2 51.1 mmHg (38-52); VENOUS PH 7.377 (7.310-7.410)
[2022-12-05 20:46] LABS: BASO % 0.2 % (0-2.0); EOS % 0.8 % (0-4.5); HEMATOCRIT 26.1 % (32.4-45.2); HEMOGLOBIN 8.1 GM/dL (10.7-15.3); LYMPH % 6.7 % (8-40); MCH 27.4 pg (25.7-33.7); MCHC 31.2 g/dl (32.0-36.0); MEAN CELL VOLUME 87.7 fl (80-96); MEAN PLT VOLUME 10.7 fl (7.5-11.1); MONO % 2.5 % (3.8-10.2); NEUT % 89.8 % (42.8-82.8); PLATELET COUNT 235 10^3/uL (134-434); RBC 2.97 M/mm3 (3.60-5.2); RDW 18.5 % (11.6-15.6)
[2022-12-05] MEDS ORDERED: MEROPENEM 1 GM VIAL (RESTRICTED TO ID) IVPB ONE (20:56)
[2022-12-05 21:00] LABS: CHLORIDE 94 mmol/L (98-107); POTASSIUM 3.9 mmol/L (3.5-5.1); SODIUM 139 mmol/L (136-145)
[2022-12-05 21:02] LABS: CALCIUM 8.9 mg/dL (8.5-10.1)
[2022-12-05 21:03] LABS: ALBUMIN 2.4 g/dl (3.4-5.0); ANION GAP 14 MMOL/L (8-16); CO2 32 mmol/L (21-32); GLUCOSE,RANDOM 210 mg/dL (74-106)
[2022-12-05 21:06] LABS: CREATININE 4.7 mg/dL (0.55-1.3); INR 1.08 (0.83-1.09); PROTHROMBIN TIME (PATIENT) 12.5 SEC (9.7-13.0); SGOT/AST 39 U/L (15-37); SGPT/ALT 93 U/L (13-61)
[2022-12-05 21:08] LABS: BILIRUBIN,TOTAL 0.4 mg/dL (0.2-1); TOT PROT 8.2 g/dl (6.4-8.2)
[2022-12-05 21:09] LABS: ACTIVATED PTT 28.4 SECONDS (25.2-36.5); ALK PHOS 215 U/L (45-117)
[2022-12-05 21:11] LABS: N-TERMINAL BNP 18347.3 pg/ml (5-450)
[2022-12-05 21:35] LABS: BLOOD UREA NITROGEN 202.1 mg/dL (7-18)
[2022-12-05] MEDS ORDERED: VANCOMYCIN/WATER FOR INJ (PEG) 1,000 MG/200 ML BAG IVPB ONE (21:38)
[2022-12-05] MEDS ORDERED: FUROSEMIDE 40 MG/4 ML INJECTABLE VIAL IVPUSH ONE (21:51)
[2022-12-05] MEDS ORDERED: FUROSEMIDE 40 MG/4 ML INJECTABLE VIAL ONE (23:09)
[2022-12-06] MEDS ORDERED: IOHEXOL 300 MG/ML INFUS..BTL IJ ONE
[2022-12-06 02:02] LABS: EPI CELLS 19 /uL (0-25.1); HYALINE CASTS 1 /uL (0-3.1); PH,URINE 5.5 (5.0-8.0); URINE APPEARANCE CLEAR; URINE BACTERIA 7 /uL (0-1359); URINE BILIRUBIN NEGATIVE (NEGATIVE); URINE COLOR YELLOW; URINE GLUCOSE (UA) NEGATIVE (NEGATIVE); URINE KETONE NEGATIVE (NEGATIVE); URINE LEUK ESTERASE TRACE (NEGATIVE); URINE NITRITE NEGATIVE (NEGATIVE); URINE PROTEIN 1+ (NEGATIVE); URINE RBC 17 /uL (0-23.9); URINE UROBILINOGEN 0.2 mg/dL (0.2-1.0); URINE WBC 42 /uL (0-25.8)
[2022-12-06] MEDS ORDERED: MEROPENEM IVPB SCH ×2 (02:45→08:00)
[2022-12-06] MEDS ORDERED: DEXTROSE 5% IVPB SCH ×2 (02:45→08:00)
[2022-12-06] MEDS ORDERED: WATER IVPB SCH ×2 (02:45→08:00)
[2022-12-06] MEDS ORDERED: FERROUS SULFATE 220 MG/5 ML ELIXIR GT SCH ×2 (06:00→12:08)
[2022-12-06 06:43] LABS: BASO % 0.2 % (0-2.0); EOS % 0.1 % (0-4.5); HEMATOCRIT 23.2 % (32.4-45.2); HEMOGLOBIN 7.5 GM/dL (10.7-15.3); LYMPH % 11.3 % (8-40); MCH 28.6 pg (25.7-33.7); MCHC 32.2 g/dl (32.0-36.0); MEAN CELL VOLUME 88.6 fl (80-96); MEAN PLT VOLUME 10.8 fl (7.5-11.1); MONO % 5.9 % (3.8-10.2); NEUT % 82.5 % (42.8-82.8); PLATELET COUNT 202 10^3/uL (134-434); RBC 2.62 M/mm3 (3.60-5.2); RDW 18.3 % (11.6-15.6); WHITE BLOOD COUNT 10.9 K/mm3 (4.0-10.0)
[2022-12-06 06:51] LABS: YEAST NONE SEEN (NEGATIVE)
[2022-12-06] MEDS ORDERED: METOPROLOL TARTRATE 50 MG TABLET (FP) PEG SCH ×2 (07:00→10:00)
[2022-12-06] MEDS ORDERED: ESCITALOPRAM OXALATE 5 MG/5 ML PEG SCH (10:00)
[2022-12-06] MEDS ORDERED: LORazepam 1 MG TABLET PEG SCH (10:00)
[2022-12-06] MEDS ORDERED: MEROPENEM 500 MG VIAL (RESTRICTED TO ID) IVPB ONE (10:10)
[2022-12-06] MEDS ORDERED: LORazepam 1 MG TABLET ONE (10:10)
[2022-12-06] MEDS ORDERED: METOPROLOL TARTRATE 50 MG TABLET (FP) ONE (10:10)
[2022-12-06] MEDS ORDERED: SODIUM CHLORIDE 500 ML IV STA (12:27)
[2022-12-06] MEDS ORDERED: LIDOCAINE HCL/PF 2% SDV 5ML VIAL ONE (14:33)
[2022-12-06] MEDS ORDERED: PROPOFOL 20 ML ONE (14:34)
[2022-12-06] MEDS ORDERED: ROCURONIUM BROMIDE 50 MG/5 ML SYRINGE ONE (15:29)
[2022-12-06] MEDS: METOPROLOL TARTRATE 50 MG TABLET (FP) PEG SCH (18:28)
[2022-12-06] MEDS ORDERED: MEROPENEM 500 MG in DEXTROSE 5%-WATER 100 ML IVPB SCH (22:00)
[2022-12-06] MEDS ORDERED: FAMOTIDINE 20 MG/2.5 ML ORAL LIQUID PEG SCH (22:00)
[2022-12-06] MEDS ORDERED: ATORVASTATIN CA 20 MG TABLET (FP) PEG SCH (22:00)
[2022-12-06] MEDS: LORazepam 1 MG TABLET PEG SCH (22:25)
[2022-12-06] MEDS: ATORVASTATIN CA 20 MG TABLET (FP) PEG SCH (22:25)
[2022-12-06] MEDS: FERROUS SULFATE 220 MG/5 ML ELIXIR GT SCH (22:41)
[2022-12-07] MEDS ORDERED: WATER IVPB SCH (02:45)
[2022-12-07] MEDS ORDERED: MEROPENEM IVPB SCH (02:45)
[2022-12-07] MEDS ORDERED: DEXTROSE 5% IVPB SCH (02:45)
[2022-12-07] MEDS: FERROUS SULFATE 220 MG/5 ML ELIXIR GT SCH ×3 (05:21→21:23)
[2022-12-07] MEDS: METOPROLOL TARTRATE 50 MG TABLET (FP) PEG SCH ×2 (06:03→18:04)
[2022-12-07 07:49] LABS: CHLORIDE 98 mmol/L (98-107); POTASSIUM 3.4 mmol/L (3.5-5.1); SODIUM 141 mmol/L (136-145)
[2022-12-07 07:52] LABS: CALCIUM 8.9 mg/dL (8.5-10.1)
[2022-12-07 07:53] LABS: ALBUMIN 2.2 g/dl (3.4-5.0); ANION GAP 12 MMOL/L (8-16); CO2 32 mmol/L (21-32); GLUCOSE,RANDOM 109 mg/dL (74-106)
[2022-12-07 07:56] LABS: CREATININE 4.7 mg/dL (0.55-1.3); SGOT/AST 29 U/L (15-37); SGPT/ALT 65 U/L (13-61)
[2022-12-07 07:57] LABS: TOT PROT 7.3 g/dl (6.4-8.2)
[2022-12-07 07:58] LABS: BILIRUBIN,TOTAL 0.5 mg/dL (0.2-1)
[2022-12-07 08:03] LABS: ALK PHOS 160 U/L (45-117); BLOOD UREA NITROGEN 194.8 mg/dL (7-18)
[2022-12-07] MEDS: LORazepam 1 MG TABLET PEG SCH ×2 (09:46→21:07)
[2022-12-07] MEDS: ESCITALOPRAM OXALATE 5 MG/5 ML PEG SCH (12:20)
[2022-12-07] MEDS: CEFTRIAXONE 2 GM in DEXTROSE 5%-WATER 100 ML IVPB SCH (12:20)
[2022-12-07] MEDS ORDERED: POTASSIUM CHLORIDE ORAL LIQUID 20 MEQ/15 ML PO ONE (13:00)
[2022-12-07] MEDS: FUROSEMIDE 40 MG TABLET (FP) GT SCH (13:26)
[2022-12-07] MEDS: ATORVASTATIN CA 20 MG TABLET (FP) PEG SCH (21:07)
[2022-12-07] MEDS: FAMOTIDINE 20 MG/2.5 ML ORAL LIQUID PEG SCH (21:24)
[2022-12-08] MEDS: FUROSEMIDE 40 MG TABLET (FP) GT SCH ×2 (05:39→16:01)
[2022-12-08] MEDS: METOPROLOL TARTRATE 50 MG TABLET (FP) PEG SCH ×2 (06:48→20:08)
[2022-12-08] MEDS: FERROUS SULFATE 220 MG/5 ML ELIXIR GT SCH ×3 (06:48→21:08)
[2022-12-08 08:08] LABS: BASO % 0.6 % (0-2.0); EOS % 2.2 % (0-4.5); HEMOGLOBIN 7.2 GM/dL (10.7-15.3); MCH 28.7 pg (25.7-33.7); MCHC 32.9 g/dl (32.0-36.0); MEAN CELL VOLUME 87.4 fl (80-96); MEAN PLT VOLUME 10.6 fl (7.5-11.1); MONO % 4.9 % (3.8-10.2); NEUT % 71.3 % (42.8-82.8); PLATELET COUNT 202 10^3/uL (134-434); RBC 2.52 M/mm3 (3.60-5.2); RDW 17.9 % (11.6-15.6); WHITE BLOOD COUNT 7.1 K/mm3 (4.0-10.0)
[2022-12-08 08:37] LABS: CHLORIDE 100 mmol/L (98-107); POTASSIUM 3.4 mmol/L (3.5-5.1); SODIUM 144 mmol/L (136-145)
[2022-12-08 08:39] LABS: ANION GAP 12 MMOL/L (8-16); CALCIUM 8.8 mg/dL (8.5-10.1); CO2 32 mmol/L (21-32); GLUCOSE,RANDOM 102 mg/dL (74-106); MAGNESIUM 2.9 mg/dL (1.8-2.4)
[2022-12-08 08:42] LABS: CREATININE 4.5 mg/dL (0.55-1.3); PHOSPHOROUS 6.8 mg/dL (2.5-4.9)
[2022-12-08 08:58] LABS: BLOOD UREA NITROGEN 195.8 mg/dL (7-18)
[2022-12-08] MEDS ORDERED: FUROSEMIDE 40 MG TABLET (FP) GT SCH (10:00)
[2022-12-08] MEDS: CEFTRIAXONE 2 GM in DEXTROSE 5%-WATER 100 ML IVPB SCH (11:14)
[2022-12-08] MEDS: ESCITALOPRAM OXALATE 5 MG/5 ML PEG SCH (11:14)
[2022-12-08] MEDS: LORazepam 1 MG TABLET PEG SCH ×2 (11:15→21:08)
[2022-12-08] MEDS: ATORVASTATIN CA 20 MG TABLET (FP) PEG SCH (21:08)
[2022-12-09] MEDS: FERROUS SULFATE 220 MG/5 ML ELIXIR GT SCH ×3 (05:57→21:10)
[2022-12-09] MEDS: FUROSEMIDE 40 MG TABLET (FP) GT SCH ×2 (05:58→15:02)
[2022-12-09] MEDS: METOPROLOL TARTRATE 50 MG TABLET (FP) PEG SCH ×2 (06:00→19:55)
[2022-12-09] MEDS: FAMOTIDINE 20 MG/2.5 ML ORAL LIQUID PEG SCH (10:00)
[2022-12-09] MEDS: LORazepam 1 MG TABLET PEG SCH ×2 (10:01→21:09)
[2022-12-09] MEDS: ESCITALOPRAM OXALATE 5 MG/5 ML PEG SCH (10:04)
[2022-12-09] MEDS: CEFTRIAXONE 2 GM in DEXTROSE 5%-WATER 100 ML IVPB SCH (10:05)
[2022-12-09 10:21] LABS: BASO % 0.5 % (0-2.0); EOS % 4.7 % (0-4.5); HEMATOCRIT 21.9 % (32.4-45.2); HEMOGLOBIN 7.1 GM/dL (10.7-15.3); LYMPH % 22.8 % (8-40); MCH 28.1 pg (25.7-33.7); MCHC 32.3 g/dl (32.0-36.0); MEAN PLT VOLUME 10.3 fl (7.5-11.1); MONO % 5.7 % (3.8-10.2); NEUT % 66.3 % (42.8-82.8); PLATELET COUNT 199 10^3/uL (134-434); RBC 2.52 M/mm3 (3.60-5.2); RDW 18.5 % (11.6-15.6); WHITE BLOOD COUNT 6.8 K/mm3 (4.0-10.0)
[2022-12-09 10:47] LABS: CHLORIDE 100 mmol/L (98-107); POTASSIUM 3.1 mmol/L (3.5-5.1); SODIUM 143 mmol/L (136-145)
[2022-12-09 10:51] LABS: ALBUMIN 2.1 g/dl (3.4-5.0); GLUCOSE,RANDOM 113 mg/dL (74-106)
[2022-12-09 10:52] LABS: ANION GAP 12 MMOL/L (8-16); CALCIUM 8.5 mg/dL (8.5-10.1); CO2 31 mmol/L (21-32); MAGNESIUM 2.9 mg/dL (1.8-2.4)
[2022-12-09 10:54] LABS: CREATININE 4.6 mg/dL (0.55-1.3); PHOSPHOROUS 6.6 mg/dL (2.5-4.9)
[2022-12-09 10:55] LABS: SGOT/AST 24 U/L (15-37)
[2022-12-09 10:56] LABS: BILIRUBIN,TOTAL 0.3 mg/dL (0.2-1); TOT PROT 7.1 g/dl (6.4-8.2)
[2022-12-09 10:57] LABS: ALK PHOS 160 U/L (45-117)
[2022-12-09 11:00] LABS: SGPT/ALT 47 U/L (13-61)
[2022-12-09 11:30] LABS: BLOOD UREA NITROGEN 183.1 mg/dL (7-18)
[2022-12-09] MEDS: ATORVASTATIN CA 20 MG TABLET (FP) PEG SCH (21:10)
[2022-12-10] MEDS: METOPROLOL TARTRATE 50 MG TABLET (FP) PEG SCH ×2 (06:05→18:56)
[2022-12-10] MEDS: FUROSEMIDE 40 MG TABLET (FP) GT SCH ×2 (06:05→13:39)
[2022-12-10] MEDS: FERROUS SULFATE 220 MG/5 ML ELIXIR GT SCH ×3 (06:06→22:57)
[2022-12-10 07:35] LABS: BASO % 0.6 % (0-2.0); EOS % 3.8 % (0-4.5); HEMATOCRIT 21.6 % (32.4-45.2); LYMPH % 26.8 % (8-40); MCH 28.2 pg (25.7-33.7); MCHC 32.5 g/dl (32.0-36.0); MEAN CELL VOLUME 86.8 fl (80-96); MEAN PLT VOLUME 10.2 fl (7.5-11.1); MONO % 5.6 % (3.8-10.2); NEUT % 63.2 % (42.8-82.8); PLATELET COUNT 197 10^3/uL (134-434); RBC 2.48 M/mm3 (3.60-5.2); RDW 17.7 % (11.6-15.6)
[2022-12-10 07:53] LABS: CHLORIDE 100 mmol/L (98-107); SODIUM 143 mmol/L (136-145)
[2022-12-10 08:03] LABS: ALBUMIN 2.1 g/dl (3.4-5.0); CALCIUM 8.4 mg/dL (8.5-10.1); CO2 32 mmol/L (21-32); GLUCOSE,RANDOM 108 mg/dL (74-106); MAGNESIUM 2.7 mg/dL (1.8-2.4)
[2022-12-10 08:06] LABS: CREATININE 4.4 mg/dL (0.55-1.3); PHOSPHOROUS 5.8 mg/dL (2.5-4.9); SGOT/AST 24 U/L (15-37); SGPT/ALT 45 U/L (13-61)
[2022-12-10 08:08] LABS: BILIRUBIN,TOTAL 0.4 mg/dL (0.2-1)
[2022-12-10 08:09] LABS: ALK PHOS 160 U/L (45-117)
[2022-12-10 08:56] LABS: ANION GAP 12 MMOL/L (8-16); BLOOD UREA NITROGEN 178.1 mg/dL (7-18); POTASSIUM 2.9 mmol/L (3.5-5.1)
[2022-12-10] MEDS: POTASSIUM CHLORIDE ORAL LIQUID 20 MEQ/15 ML GT SCH ×2 (09:37→21:44)
[2022-12-10] MEDS: CEFTRIAXONE 2 GM in DEXTROSE 5%-WATER 100 ML IVPB SCH (09:37)
[2022-12-10] MEDS: KCL 10 MEQ IVPB 10 MEQ/100 ML INFUS.BAG IVPB SCH ×3 (09:38→11:56)
[2022-12-10] MEDS: ESCITALOPRAM OXALATE 5 MG/5 ML PEG SCH (09:52)
[2022-12-10] MEDS: LORazepam 1 MG TABLET PEG SCH ×2 (10:45→21:43)
[2022-12-10 14:49] VITALS: BMI 36.9
[2022-12-10] MEDS: ATORVASTATIN CA 20 MG TABLET (FP) PEG SCH (21:43)
[2022-12-10 23:19] LABS: BASO % 0.4 % (0-2.0); EOS % 3.6 % (0-4.5); HEMATOCRIT 22.3 % (32.4-45.2); HEMOGLOBIN 7.4 GM/dL (10.7-15.3); LYMPH % 27.1 % (8-40); MCH 28.2 pg (25.7-33.7); MEAN CELL VOLUME 85.6 fl (80-96); MEAN PLT VOLUME 8.7 fl (7.5-11.1); NEUT % 63.9 % (42.8-82.8); PLATELET COUNT 203 10^3/uL (134-434); RBC 2.61 M/mm3 (3.60-5.2); WHITE BLOOD COUNT 7.6 K/mm3 (4.0-10.0)
[2022-12-10 23:54] LABS: CHLORIDE 102 mmol/L (98-107); POTASSIUM 3.9 mmol/L (3.5-5.1); SODIUM 145 mmol/L (136-145)
[2022-12-10 23:55] LABS: CALCIUM 8.9 mg/dL (8.5-10.1)
[2022-12-10 23:56] LABS: ALBUMIN 2.2 g/dl (3.4-5.0); ANION GAP 9 MMOL/L (8-16); CO2 34 mmol/L (21-32); GLUCOSE,RANDOM 120 mg/dL (74-106)
[2022-12-10 23:59] LABS: CREATININE 4.2 mg/dL (0.55-1.3); SGOT/AST 43 U/L (15-37); SGPT/ALT 58 U/L (13-61)
[2022-12-11 00:01] LABS: BILIRUBIN,TOTAL 0.3 mg/dL (0.2-1); TOT PROT 7.2 g/dl (6.4-8.2)
[2022-12-11 00:02] LABS: ALK PHOS 159 U/L (45-117)
[2022-12-11 01:08] LABS: BLOOD UREA NITROGEN 168.3 mg/dL (7-18)
[2022-12-11] MEDS: FUROSEMIDE 40 MG TABLET (FP) GT SCH ×2 (06:35→13:39)
[2022-12-11] MEDS: METOPROLOL TARTRATE 50 MG TABLET (FP) PEG SCH ×2 (06:36→21:01)
[2022-12-11] MEDS: FERROUS SULFATE 220 MG/5 ML ELIXIR GT SCH ×3 (06:36→23:30)
[2022-12-11 07:49] LABS: BASO % 0.5 % (0-2.0); EOS % 4.3 % (0-4.5); HEMATOCRIT 21.9 % (32.4-45.2); HEMOGLOBIN 7.1 GM/dL (10.7-15.3); LYMPH % 24.8 % (8-40); MCH 28.5 pg (25.7-33.7); MCHC 32.6 g/dl (32.0-36.0); MEAN CELL VOLUME 87.6 fl (80-96); MEAN PLT VOLUME 10.1 fl (7.5-11.1); MONO % 4.7 % (3.8-10.2); NEUT % 65.7 % (42.8-82.8); PLATELET COUNT 202 10^3/uL (134-434); RDW 18.1 % (11.6-15.6); WHITE BLOOD COUNT 7.6 K/mm3 (4.0-10.0)
[2022-12-11 08:10] LABS: CHLORIDE 102 mmol/L (98-107); POTASSIUM 3.9 mmol/L (3.5-5.1); SODIUM 144 mmol/L (136-145)
[2022-12-11 08:14] LABS: ALBUMIN 2.2 g/dl (3.4-5.0); ANION GAP 9 MMOL/L (8-16); CALCIUM 8.8 mg/dL (8.5-10.1); CO2 33 mmol/L (21-32); GLUCOSE,RANDOM 105 mg/dL (74-106); MAGNESIUM 2.6 mg/dL (1.8-2.4)
[2022-12-11 08:17] LABS: PHOSPHOROUS 5.1 mg/dL (2.5-4.9); SGPT/ALT 76 U/L (13-61)
[2022-12-11 08:18] LABS: CREATININE 4.2 mg/dL (0.55-1.3); SGOT/AST 64 U/L (15-37)
[2022-12-11 08:19] LABS: BILIRUBIN,TOTAL 0.3 mg/dL (0.2-1); TOT PROT 7.2 g/dl (6.4-8.2)
[2022-12-11 08:20] LABS: ALK PHOS 168 U/L (45-117)
[2022-12-11] MEDS: LORazepam 1 MG TABLET PEG SCH ×2 (09:01→21:01)
[2022-12-11] MEDS: CEFTRIAXONE 2 GM in DEXTROSE 5%-WATER 100 ML IVPB SCH (09:01)
[2022-12-11 10:04] LABS: BLOOD UREA NITROGEN 162.9 mg/dL (7-18)
[2022-12-11] MEDS: FAMOTIDINE 20 MG/2.5 ML ORAL LIQUID PEG SCH (11:11)
[2022-12-11] MEDS: ESCITALOPRAM OXALATE 5 MG/5 ML PEG SCH (11:12)
[2022-12-11] MEDS: ATORVASTATIN CA 20 MG TABLET (FP) PEG SCH (21:01)
[2022-12-12] MEDS: METOPROLOL TARTRATE 50 MG TABLET (FP) PEG SCH ×2 (06:19→20:47)
[2022-12-12] MEDS: FERROUS SULFATE 220 MG/5 ML ELIXIR GT SCH ×3 (06:19→21:45)
[2022-12-12] MEDS: FUROSEMIDE 40 MG TABLET (FP) GT SCH ×2 (06:19→14:44)
[2022-12-12 07:36] LABS: BASO % 0.5 % (0-2.0); HEMATOCRIT 22.3 % (32.4-45.2); HEMOGLOBIN 7.3 GM/dL (10.7-15.3); LYMPH % 24.4 % (8-40); MCH 28.7 pg (25.7-33.7); MCHC 32.8 g/dl (32.0-36.0); MEAN CELL VOLUME 87.3 fl (80-96); MONO % 4.3 % (3.8-10.2); NEUT % 66.8 % (42.8-82.8); PLATELET COUNT 199 10^3/uL (134-434); RBC 2.56 M/mm3 (3.60-5.2); RDW 17.6 % (11.6-15.6); WHITE BLOOD COUNT 7.9 K/mm3 (4.0-10.0)
[2022-12-12 07:50] LABS: CHLORIDE 101 mmol/L (98-107); POTASSIUM 3.3 mmol/L (3.5-5.1); SODIUM 144 mmol/L (136-145)
[2022-12-12 07:53] LABS: CALCIUM 8.9 mg/dL (8.5-10.1)
[2022-12-12 07:54] LABS: ALBUMIN 2.2 g/dl (3.4-5.0); ANION GAP 10 MMOL/L (8-16); CO2 33 mmol/L (21-32); GLUCOSE,RANDOM 97 mg/dL (74-106); MAGNESIUM 2.4 mg/dL (1.8-2.4)
[2022-12-12 07:56] LABS: SGPT/ALT 90 U/L (13-61)
[2022-12-12 07:57] LABS: CREATININE 4.1 mg/dL (0.55-1.3); PHOSPHOROUS 4.8 mg/dL (2.5-4.9); SGOT/AST 70 U/L (15-37)
[2022-12-12 07:58] LABS: BILIRUBIN,TOTAL 0.4 mg/dL (0.2-1); TOT PROT 7.4 g/dl (6.4-8.2)
[2022-12-12 07:59] LABS: ALK PHOS 174 U/L (45-117)
[2022-12-12 08:18] LABS: BLOOD UREA NITROGEN 155.5 mg/dL (7-18)
[2022-12-12] MEDS ORDERED: POTASSIUM CHLORIDE ORAL LIQUID 20 MEQ/15 ML PO ONE (08:39)
[2022-12-12] MEDS: ESCITALOPRAM OXALATE 5 MG/5 ML PEG SCH (09:39)
[2022-12-12] MEDS: LORazepam 1 MG TABLET PEG SCH ×2 (09:39→21:45)
[2022-12-12] MEDS: CEFTRIAXONE 2 GM in DEXTROSE 5%-WATER 100 ML IVPB SCH (09:39)
[2022-12-12] MEDS: ATORVASTATIN CA 20 MG TABLET (FP) PEG SCH (21:45)
[2022-12-13] MEDS: FUROSEMIDE 40 MG TABLET (FP) GT SCH ×2 (05:44→14:13)
[2022-12-13] MEDS: FERROUS SULFATE 220 MG/5 ML ELIXIR GT SCH ×3 (05:44→21:06)
[2022-12-13] MEDS: METOPROLOL TARTRATE 50 MG TABLET (FP) PEG SCH ×2 (06:26→21:06)
[2022-12-13 07:53] LABS: CHLORIDE 103 mmol/L (98-107); POTASSIUM 3.6 mmol/L (3.5-5.1); SODIUM 145 mmol/L (136-145)
[2022-12-13 07:56] LABS: BASO % 0.6 % (0-2.0); EOS % 4.5 % (0-4.5); HEMATOCRIT 23.3 % (32.4-45.2); HEMOGLOBIN 7.7 GM/dL (10.7-15.3); LYMPH % 23.8 % (8-40); MCH 29.1 pg (25.7-33.7); MCHC 33.2 g/dl (32.0-36.0); MEAN CELL VOLUME 87.5 fl (80-96); MEAN PLT VOLUME 10.1 fl (7.5-11.1); MONO % 3.9 % (3.8-10.2); NEUT % 67.2 % (42.8-82.8); PLATELET COUNT 202 10^3/uL (134-434); RBC 2.66 M/mm3 (3.60-5.2); RDW 17.9 % (11.6-15.6)
[2022-12-13 07:57] LABS: ALBUMIN 2.2 g/dl (3.4-5.0); CALCIUM 9.1 mg/dL (8.5-10.1); GLUCOSE,RANDOM 113 mg/dL (74-106)
[2022-12-13 07:58] LABS: ANION GAP 10 MMOL/L (8-16); CO2 32 mmol/L (21-32); MAGNESIUM 2.5 mg/dL (1.8-2.4)
[2022-12-13 08:00] LABS: PHOSPHOROUS 4.7 mg/dL (2.5-4.9); SGOT/AST 57 U/L (15-37); SGPT/ALT 82 U/L (13-61)
[2022-12-13 08:02] LABS: ALK PHOS 156 U/L (45-117)
[2022-12-13 08:03] LABS: BILIRUBIN,TOTAL 0.4 mg/dL (0.2-1)
[2022-12-13 08:04] LABS: TOT PROT 7.5 g/dl (6.4-8.2)
[2022-12-13] MEDS: LORazepam 1 MG TABLET PEG SCH ×2 (09:44→21:06)
[2022-12-13] MEDS: CEFTRIAXONE 2 GM in DEXTROSE 5%-WATER 100 ML IVPB SCH (09:44)
[2022-12-13] MEDS: FAMOTIDINE 20 MG/2.5 ML ORAL LIQUID PEG SCH (09:45)
[2022-12-13] MEDS: ESCITALOPRAM OXALATE 5 MG/5 ML PEG SCH (09:45)
[2022-12-13] MEDS: ATORVASTATIN CA 20 MG TABLET (FP) PEG SCH (21:07)
[2022-12-14] MEDS: FERROUS SULFATE 220 MG/5 ML ELIXIR GT SCH ×3 (05:29→21:16)
[2022-12-14] MEDS: FUROSEMIDE 40 MG TABLET (FP) GT SCH ×2 (05:29→13:34)
[2022-12-14 07:28] LABS: BASO % 0.4 % (0-2.0); EOS % 4.1 % (0-4.5); HEMATOCRIT 21.8 % (32.4-45.2); HEMOGLOBIN 7.2 GM/dL (10.7-15.3); LYMPH % 23.7 % (8-40); MCH 29.1 pg (25.7-33.7); MCHC 33.2 g/dl (32.0-36.0); MEAN CELL VOLUME 87.8 fl (80-96); MEAN PLT VOLUME 10.4 fl (7.5-11.1); MONO % 4.1 % (3.8-10.2); NEUT % 67.7 % (42.8-82.8); PLATELET COUNT 186 10^3/uL (134-434); RBC 2.48 M/mm3 (3.60-5.2); RDW 17.7 % (11.6-15.6); WHITE BLOOD COUNT 8.9 K/mm3 (4.0-10.0)
[2022-12-14 07:42] LABS: CHLORIDE 102 mmol/L (98-107); POTASSIUM 3.2 mmol/L (3.5-5.1); SODIUM 144 mmol/L (136-145)
[2022-12-14 07:45] LABS: CALCIUM 8.3 mg/dL (8.5-10.1)
[2022-12-14 07:46] LABS: ALBUMIN 2.2 g/dl (3.4-5.0); ANION GAP 9 MMOL/L (8-16); CO2 32 mmol/L (21-32); GLUCOSE,RANDOM 102 mg/dL (74-106); MAGNESIUM 2.4 mg/dL (1.8-2.4)
[2022-12-14 07:48] LABS: SGPT/ALT 96 U/L (13-61)
[2022-12-14 07:49] LABS: PHOSPHOROUS 4.5 mg/dL (2.5-4.9); SGOT/AST 67 U/L (15-37)
[2022-12-14 07:50] LABS: ALK PHOS 158 U/L (45-117); BILIRUBIN,TOTAL 0.8 mg/dL (0.2-1)
[2022-12-14 07:51] LABS: TOT PROT 7.3 g/dl (6.4-8.2)
[2022-12-14] MEDS ORDERED: POTASSIUM CHLORIDE ORAL LIQUID 20 MEQ/15 ML GT ONE (09:45)
[2022-12-14] MEDS: LORazepam 1 MG TABLET PEG SCH ×2 (10:04→21:16)
[2022-12-14] MEDS: METOPROLOL TARTRATE 50 MG TABLET (FP) PEG SCH ×2 (10:04→21:16)
[2022-12-14] MEDS: ESCITALOPRAM OXALATE 5 MG/5 ML PEG SCH (10:05)
[2022-12-14] MEDS: CEFTRIAXONE 2 GM in DEXTROSE 5%-WATER 100 ML IVPB SCH (10:11)
[2022-12-14] MEDS: ATORVASTATIN CA 20 MG TABLET (FP) PEG SCH (21:16)
[2022-12-15] MEDS: FUROSEMIDE 40 MG TABLET (FP) GT SCH ×2 (05:21→15:21)
[2022-12-15] MEDS: FERROUS SULFATE 220 MG/5 ML ELIXIR GT SCH ×3 (05:21→21:41)
[2022-12-15 07:44] LABS: BASO % 0.5 % (0-2.0); EOS % 3.4 % (0-4.5); HEMOGLOBIN 7.5 GM/dL (10.7-15.3); LYMPH % 23.8 % (8-40); MCH 28.7 pg (25.7-33.7); MCHC 32.6 g/dl (32.0-36.0); MEAN CELL VOLUME 88.1 fl (80-96); MEAN PLT VOLUME 10.8 fl (7.5-11.1); MONO % 4.4 % (3.8-10.2); NEUT % 67.9 % (42.8-82.8); PLATELET COUNT 192 10^3/uL (134-434); RBC 2.62 M/mm3 (3.60-5.2); RDW 17.8 % (11.6-15.6); WHITE BLOOD COUNT 9.1 K/mm3 (4.0-10.0)
[2022-12-15 07:51] LABS: CHLORIDE 102 mmol/L (98-107); POTASSIUM 3.3 mmol/L (3.5-5.1); SODIUM 144 mmol/L (136-145)
[2022-12-15 07:57] LABS: ALBUMIN 2.4 g/dl (3.4-5.0); ANION GAP 9 MMOL/L (8-16); CALCIUM 8.6 mg/dL (8.5-10.1); CO2 32 mmol/L (21-32); GLUCOSE,RANDOM 102 mg/dL (74-106); MAGNESIUM 2.4 mg/dL (1.8-2.4)
[2022-12-15 08:00] LABS: PHOSPHOROUS 4.6 mg/dL (2.5-4.9); SGOT/AST 86 U/L (15-37); SGPT/ALT 126 U/L (13-61)
[2022-12-15 08:01] LABS: BILIRUBIN,TOTAL 0.4 mg/dL (0.2-1); TOT PROT 7.8 g/dl (6.4-8.2)
[2022-12-15 08:02] LABS: ALK PHOS 152 U/L (45-117)
[2022-12-15 08:03] LABS: BLOOD UREA NITROGEN 139.5 mg/dL (7-18)
[2022-12-15] MEDS ORDERED: POTASSIUM CHLORIDE ORAL LIQUID 20 MEQ/15 ML PO ONE (09:36)
[2022-12-15] MEDS: FAMOTIDINE 20 MG/2.5 ML ORAL LIQUID PEG SCH (10:16)
[2022-12-15] MEDS: LORazepam 1 MG TABLET PEG SCH ×2 (10:16→21:40)
[2022-12-15] MEDS: ESCITALOPRAM OXALATE 5 MG/5 ML PEG SCH (10:17)
[2022-12-15] MEDS: METOPROLOL TARTRATE 50 MG TABLET (FP) PEG SCH ×2 (10:17→21:41)
[2022-12-15] MEDS ORDERED: guaiFENesin/CODEINE 5 ML UNIT-DOSE CUPS PO PRN (12:43)
[2022-12-15] MEDS: ATORVASTATIN CA 20 MG TABLET (FP) PEG SCH (21:41)
[2022-12-15] MEDS: guaiFENesin/CODEINE 5 ML UNIT-DOSE CUPS PO PRN (21:41)
[2022-12-16] MEDS: FERROUS SULFATE 220 MG/5 ML ELIXIR GT SCH ×3 (06:08→21:24)
[2022-12-16] MEDS: FUROSEMIDE 40 MG TABLET (FP) GT SCH ×2 (06:08→13:12)
[2022-12-16 07:44] LABS: HEMATOCRIT 21.2 % (32.4-45.2); MCH 28.8 pg (25.7-33.7); MCHC 32.6 g/dl (32.0-36.0); MEAN CELL VOLUME 88.5 fl (80-96); MEAN PLT VOLUME 10.7 fl (7.5-11.1); PLATELET COUNT 157 10^3/uL (134-434); RDW 17.7 % (11.6-15.6); WHITE BLOOD COUNT 7.6 K/mm3 (4.0-10.0)
[2022-12-16 07:58] LABS: HEMOGLOBIN 6.9 GM/dL (10.7-15.3)
[2022-12-16 08:08] LABS: CHLORIDE 106 mmol/L (98-107); POTASSIUM 3.6 mmol/L (3.5-5.1); SODIUM 145 mmol/L (136-145)
[2022-12-16 08:12] LABS: ALBUMIN 2.2 g/dl (3.4-5.0); ANION GAP 8 MMOL/L (8-16); CALCIUM 8.5 mg/dL (8.5-10.1); CO2 32 mmol/L (21-32); GLUCOSE,RANDOM 104 mg/dL (74-106); MAGNESIUM 2.4 mg/dL (1.8-2.4)
[2022-12-16 08:15] LABS: CREATININE 4.1 mg/dL (0.55-1.3); PHOSPHOROUS 4.1 mg/dL (2.5-4.9); SGPT/ALT 121 U/L (13-61)
[2022-12-16 08:16] LABS: SGOT/AST 75 U/L (15-37)
[2022-12-16 08:17] LABS: BILIRUBIN,TOTAL 0.6 mg/dL (0.2-1); TOT PROT 7.2 g/dl (6.4-8.2)
[2022-12-16 08:18] LABS: ALK PHOS 142 U/L (45-117)
[2022-12-16 08:52] LABS: BLOOD UREA NITROGEN 141.4 mg/dL (7-18)
[2022-12-16] MEDS: ESCITALOPRAM OXALATE 5 MG/5 ML PEG SCH (09:35)
[2022-12-16] MEDS: METOPROLOL TARTRATE 50 MG TABLET (FP) PEG SCH ×2 (09:35→21:22)
[2022-12-16] MEDS: LORazepam 1 MG TABLET PEG SCH ×2 (09:35→21:22)
[2022-12-16] MEDS: ATORVASTATIN CA 20 MG TABLET (FP) PEG SCH (21:21)
[2022-12-16] MEDS: guaiFENesin/CODEINE 5 ML UNIT-DOSE CUPS PO PRN (21:22)
[2022-12-17] MEDS: FUROSEMIDE 40 MG TABLET (FP) GT SCH ×2 (05:20→14:08)
[2022-12-17] MEDS: FERROUS SULFATE 220 MG/5 ML ELIXIR GT SCH ×3 (05:21→21:21)
[2022-12-17] MEDS: FAMOTIDINE 20 MG/2.5 ML ORAL LIQUID PEG SCH (09:14)
[2022-12-17] MEDS: LORazepam 1 MG TABLET PEG SCH ×2 (09:14→21:21)
[2022-12-17] MEDS: METOPROLOL TARTRATE 50 MG TABLET (FP) PEG SCH ×2 (09:14→21:21)
[2022-12-17] MEDS: ESCITALOPRAM OXALATE 5 MG/5 ML PEG SCH (09:16)
[2022-12-17] MEDS ORDERED: EPOETIN ALFA-EPBX 10,000 UNIT/ML VIAL SQ ONE (15:00)
[2022-12-17] MEDS: ATORVASTATIN CA 20 MG TABLET (FP) PEG SCH (21:21)
[2022-12-18] MEDS: FERROUS SULFATE 220 MG/5 ML ELIXIR GT SCH ×3 (05:14→21:11)
[2022-12-18] MEDS: FUROSEMIDE 40 MG TABLET (FP) GT SCH ×2 (05:14→13:45)
[2022-12-18] MEDS: LORazepam 1 MG TABLET PEG SCH ×2 (09:22→21:12)
[2022-12-18] MEDS: METOPROLOL TARTRATE 50 MG TABLET (FP) PEG SCH ×2 (09:22→21:12)
[2022-12-18] MEDS: ESCITALOPRAM OXALATE 5 MG/5 ML PEG SCH (11:58)
[2022-12-18] MEDS: ATORVASTATIN CA 20 MG TABLET (FP) PEG SCH (21:12)
[2022-12-19] MEDS: FERROUS SULFATE 220 MG/5 ML ELIXIR GT SCH ×3 (05:03→21:29)
[2022-12-19] MEDS: FUROSEMIDE 40 MG TABLET (FP) GT SCH ×2 (05:03→13:07)
[2022-12-19] MEDS: FAMOTIDINE 20 MG/2.5 ML ORAL LIQUID PEG SCH (09:24)
[2022-12-19] MEDS: ESCITALOPRAM OXALATE 5 MG/5 ML PEG SCH (09:25)
[2022-12-19] MEDS: LORazepam 1 MG TABLET PEG SCH ×2 (09:25→21:28)
[2022-12-19] MEDS: METOPROLOL TARTRATE 50 MG TABLET (FP) PEG SCH ×2 (09:25→21:29)
[2022-12-19] MEDS: ATORVASTATIN CA 20 MG TABLET (FP) PEG SCH (21:28)
[2022-12-20] MEDS: FUROSEMIDE 40 MG TABLET (FP) GT SCH ×2 (06:13→13:36)
[2022-12-20] MEDS: FERROUS SULFATE 220 MG/5 ML ELIXIR GT SCH ×3 (06:13→21:17)
[2022-12-20] MEDS: METOPROLOL TARTRATE 50 MG TABLET (FP) PEG SCH (10:51)
[2022-12-20] MEDS: LORazepam 1 MG TABLET PEG SCH ×2 (10:51→21:17)
[2022-12-20] MEDS: ESCITALOPRAM OXALATE 5 MG/5 ML PEG SCH (10:55)
[2022-12-20] MEDS: ATORVASTATIN CA 20 MG TABLET (FP) PEG SCH (21:17)
[2022-12-20] MEDS: METOPROLOL TARTRATE 25 MG TABLET (FP) PEG SCH (21:17)
[2022-12-20] MEDS ORDERED: ALBUTEROL SO4 2.5/IPRATROPIUM 0.5 INH SOL 3 ML VIAL.NEB. NEB ONE (22:30)
[2022-12-20] MEDS ORDERED: guaiFENesin/CODEINE 5 ML UNIT-DOSE CUPS PO ONE (22:31)
[2022-12-21] MEDS: FUROSEMIDE 40 MG TABLET (FP) GT SCH ×2 (06:26→14:11)
[2022-12-21] MEDS: FERROUS SULFATE 220 MG/5 ML ELIXIR GT SCH ×3 (06:26→21:05)
[2022-12-21] MEDS: METOPROLOL TARTRATE 25 MG TABLET (FP) PEG SCH ×3 (06:27→21:05)
[2022-12-21] MEDS: LORazepam 1 MG TABLET PEG SCH ×4 (09:07→21:05)
[2022-12-21] MEDS: ESCITALOPRAM OXALATE 5 MG/5 ML PEG SCH (09:17)
[2022-12-21] MEDS: FAMOTIDINE 20 MG/2.5 ML ORAL LIQUID PEG SCH (09:18)
[2022-12-21] MEDS ORDERED: ALBUTEROL SO4 0.083% IH SOL 2.5 MG/3 ML VIAL.NEB. NEB PRN (10:20)
[2022-12-21] MEDS: ATORVASTATIN CA 20 MG TABLET (FP) PEG SCH (21:05)
[2022-12-22] MEDS: LORazepam 1 MG TABLET PEG SCH (05:34)
[2022-12-22] MEDS: FUROSEMIDE 40 MG TABLET (FP) GT SCH (05:34)
[2022-12-22] MEDS: METOPROLOL TARTRATE 25 MG TABLET (FP) PEG SCH (05:34)
[2022-12-22] MEDS: FERROUS SULFATE 220 MG/5 ML ELIXIR GT SCH (05:40)
[2022-12-22 09:11] VITALS: TEMP 98.6
[2022-12-22] MEDS: ESCITALOPRAM OXALATE 5 MG/5 ML PEG SCH (09:38)
[2022-12-22 12:33] VITALS: BP 107/76; RESP 22
[2022-12-22 13:15] VITALS: PULSE 55
== END 2022-12-22 12:45 | DRG 853 ==
LOC: JER 19:21 → JERBED 12-06 01:44 → J2W 12-06 17:38
PROVIDERS: ADMIT Internal Medicine; ATTEND Internal Medicine
PROC: 0TJB8ZZ Inspection of Bladder, Via Natural or Artificial Opening Endoscopic (ICD-10-PCS; 2022-12-06)
PROC: 5A1955Z Respiratory Ventilation, Greater than 96 Consecutive Hours (ICD-10-PCS; 2022-12-06)
PROC: 0T738DZ Dilation of Right Kidney Pelvis with Intraluminal Device, Via Natural or Artificial Opening Endoscopic (ICD-10-PCS; principal; 2022-12-06 14:30)
PROC: BT1DZZZ Fluoroscopy of Right Kidney, Ureter and Bladder (ICD-10-PCS; 2022-12-06 14:30)
DX: A41.89 Other specified sepsis (principal); I50.23 Acute on chronic systolic (congestive) heart failure; L89.324 Pressure ulcer of left buttock, stage 4; J96.21 Acute and chronic respiratory failure with hypoxia; J96.22 Acute and chronic respiratory failure with hypercapnia; J18.9 Pneumonia, unspecified organism; I13.0 Hypertensive heart and chronic kidney disease with heart failure and stage 1 through stage 4 chronic kidney disease, or unspecified chronic kidney disease; N17.9 Acute kidney failure, unspecified; N13.6 Pyonephrosis; G93.49 Other encephalopathy; E78.5 Hyperlipidemia, unspecified; I48.91 Unspecified atrial fibrillation; J44.9 Chronic obstructive pulmonary disease, unspecified; K21.9 Gastro-esophageal reflux disease without esophagitis; D72.829 Elevated white blood cell count, unspecified; F41.8 Other specified anxiety disorders; K57.90 Diverticulosis of intestine, part unspecified, without perforation or abscess without bleeding; D25.9 Leiomyoma of uterus, unspecified; N18.30 Chronic kidney disease, stage 3 unspecified; D63.8 Anemia in other chronic diseases classified elsewhere; E66.9 Obesity, unspecified; Z93.1 Gastrostomy status; Z93.0 Tracheostomy status; Z68.34 Body mass index [BMI] 34.0-34.9, adult
CPT/HCPCS: 0241U-QW; 36415; 71045-TC-FY; 71250-TC; 74176-TC; 76000-TC-FY; 76775-TC; 80048; 80053; 81003; 82436; 82550; 82553; 82570; 82728; 82803; 82962; 83540; 83550; 83605; 83735; 83880; 84100; 84133; 84300; 84484; 85025; 85027; 85610; 85730; 86850; 86900; 86901; 87040; 87070; 87086; 87186; 87205; 87635; 93005; 93010; 94002; 94640; 94760; 99285-25; C1758; C2617; Q5106

== ENCOUNTER 2022-12-25 08:31 | Inpatient (IN) | payer OTHER ==
[2022-12-25] MEDS ORDERED: ALBUTEROL SO4 2.5/IPRATROPIUM 0.5 INH SOL 3 ML VIAL.NEB. NEB SCH (09:15)
[2022-12-25] MEDS ORDERED: ALBUTEROL SO4 2.5/IPRATROPIUM 0.5 INH SOL 3 ML VIAL.NEB. NEB ONE (09:20)
[2022-12-25] MEDS ORDERED: ALBUTEROL SO4 0.5 % INH SOLN 2.5 MG/0.5 ML VIAL.NEB. NEB ONE ×2 (10:55→10:59)
[2022-12-25] MEDS ORDERED: ALBUTEROL SO4 0.083% IH SOL 2.5 MG/3 ML VIAL.NEB. NEB PRN (15:31)
[2022-12-25] MEDS: METOPROLOL TARTRATE 25 MG TABLET (FP) PEG SCH (22:24)
[2022-12-25] MEDS: LORazepam 1 MG TABLET PEG SCH (22:24)
[2022-12-26] MEDS: FAMOTIDINE 20 MG/2.5 ML ORAL LIQUID PEG SCH (00:35)
[2022-12-26] MEDS: FUROSEMIDE 40 MG TABLET (FP) PEG SCH ×2 (06:10→14:13)
[2022-12-26] MEDS: METOPROLOL TARTRATE 25 MG TABLET (FP) PEG SCH ×2 (06:10→14:13)
[2022-12-26] MEDS: LORazepam 1 MG TABLET PEG SCH (09:33)
[2022-12-26 12:50] VITALS: BMI 39.2
[2022-12-27] MEDS: METOPROLOL TARTRATE 25 MG TABLET (FP) PEG SCH ×3 (00:54→13:23)
[2022-12-27] MEDS: LORazepam 1 MG TABLET PEG SCH ×2 (00:54→11:05)
[2022-12-27] MEDS: FAMOTIDINE 20 MG/2.5 ML ORAL LIQUID PEG SCH (00:55)
[2022-12-27] MEDS: FUROSEMIDE 40 MG TABLET (FP) PEG SCH ×2 (06:53→13:23)
[2022-12-27] MEDS ORDERED: FENTANYL PATCH WASTE TD PRN (12:09)
[2022-12-27] MEDS ORDERED: fentaNYL 25mcg/hr PATCH.TD72 TD SCH (12:15)
[2022-12-28] MEDS: LORazepam 1 MG TABLET PEG SCH ×2 (01:45→10:06)
[2022-12-28] MEDS: METOPROLOL TARTRATE 25 MG TABLET (FP) PEG SCH ×3 (01:45→14:15)
[2022-12-28] MEDS: FAMOTIDINE 20 MG/2.5 ML ORAL LIQUID PEG SCH (01:45)
[2022-12-28] MEDS: FUROSEMIDE 40 MG TABLET (FP) PEG SCH ×2 (07:10→14:15)
[2022-12-28 10:14] VITALS: BP 125/63; PULSE 69; TEMP 98.8
[2022-12-28 14:57] VITALS: RESP 18
== END 2022-12-28 15:19 | DRG 291 ==
LOC: JER 08:31 → JERBED 12:21 → OBSVTOIN 15:01 → J5S 17:24
PROVIDERS: ADMIT Internal Medicine
PROC: 5A1945Z Respiratory Ventilation, 24-96 Consecutive Hours (ICD-10-PCS; principal; 2022-12-25)
DX: I13.0 Hypertensive heart and chronic kidney disease with heart failure and stage 1 through stage 4 chronic kidney disease, or unspecified chronic kidney disease (principal); I50.23 Acute on chronic systolic (congestive) heart failure; J96.21 Acute and chronic respiratory failure with hypoxia; J96.22 Acute and chronic respiratory failure with hypercapnia; Z99.11 Dependence on respirator [ventilator] status; N17.9 Acute kidney failure, unspecified; J81.1 Chronic pulmonary edema; E78.5 Hyperlipidemia, unspecified; I43 Cardiomyopathy in diseases classified elsewhere; N18.9 Chronic kidney disease, unspecified; I48.91 Unspecified atrial fibrillation; J44.9 Chronic obstructive pulmonary disease, unspecified; D64.9 Anemia, unspecified; N20.0 Calculus of kidney; E66.9 Obesity, unspecified; Z93.1 Gastrostomy status; Z93.0 Tracheostomy status; Z68.37 Body mass index [BMI] 37.0-37.9, adult; Z74.01 Bed confinement status
CPT/HCPCS: 0241U-QW; 71045-TC-FY; 82962; 93005; 93010; 94002; 99285-25; G0378